=== PATIENT | female | born 1990 | race Hispanic/Latino ===

== ENCOUNTER → 2019-10-05 | Day surgery (SDC) | payer OTHER ==
[~2019-10-05] MED LIST: HYOSCYAMINE 0.125 MG TAB ONE; PRENATAL 19 TA1 EACH PO; PROPOFOL IV EMULSION 10 MG/ML 20 ML VIAL ONE; ZANTAC PO
[2019-10-05 12:25] VITALS: BP 130/76
--- NOTE | 2019-10-05 17:30 | Operative Report ---
DATE OF PROCEDURE: 10/05/2019 SURGEON: Vince Pulido MD PROCEDURES: EGD with polypectomy and biopsies and colonoscopy with biopsies. INDICATIONS FOR EGD: Upper abdominal pain, acid reflux. INDICATIONS FOR COLONOSCOPY: Surveillance colonoscopy. Mother with colon cancer before age 40 ? Enamorado syndrome. MEDICATIONS: The patient was done under MAC, please see anesthesiologist's note. PROCEDURE IN DETAIL: With the patient in left lateral decubitus position, a flexible fiberoptic Olympus gastroscope was introduced into the esophagus under direct visualization without any difficulty. There was some patchy erythema noted in distal esophagus. The scope was then advanced with ease into the stomach. The patient is status post gastric sleeve. Mucosa overlying the antrum and the body revealed some diffuse erythema and moderate edema, and biopsies were obtained, and sent to stain for H. pylori. A minute polyp was noted in the antrum, that was partially excised with cold biopsy forceps. The pylorus was of normal contour and shape, it was intubated with ease and the scope was advanced all the way to the second portion of the duodenum. Biopsies were obtained from the proximal second portion and duodenal bulb to rule out sprue. The scope was then withdrawn back into the stomach and retroflexed, mucosa overlying the fundus and cardia appeared to be within normal limits. The scope was then straightened out, it was subsequently withdrawn. The patient tolerated the procedure well. IMPRESSION: 1. Distal esophagitis, mild. 2. Status post gastric sleeve. 3. Gastritis, biopsied, biopsies sent to stain for H. pylori. 4. Gastric polyp, antrum, partially excised with the cold biopsy forceps. 5. Rule out sprue. PLAN: 1. Follow up histology. 2. Initiate Protonix 40 mg one p.o. q.a.m. a.c. DESCRIPTION OF PROCEDURE: The patient was then turned around after adequate lubrication of the anal canal, a flexible fiberoptic Olympus colonoscope was advanced with some difficulty all the way to the cecum. A large amount of retained stool was noted in the left colon. The cecum and the ascending colon visualization were fair, and appeared to be overall within normal limits. No obvious obstructing or constricting lesions were noted in the left colon. The rectum grossly appeared to be within normal limits. The scope was then retroflexed into the distal rectum and approximately 4 mm sessile lesion was noted at the dentate line, that was biopsied. Also, some internal hemorrhoids were noted. The scope was then straightened out, it was subsequently withdrawn. The patient tolerated the procedure well. IMPRESSION: 1. Suboptimal to poor prep, left colon. 2. Approximately 4 mm sessile lesion, dentate line, biopsied. 3. Internal hemorrhoids, none actively bleeding. PLAN: 1. Followup histology. 2. The patient will need a repeat colonoscopy after a better prep. Then, genetic testing for Enamorado syndrome. Vince Pulido MD [facility] /[id number] cc: Earl Shannon MD
== END | disposition home or self-care (01) ==
LOC: OR 08:50
PROVIDERS: ATTEND Internal Medicine Gastroenterology
DX: K29.50 Unspecified chronic gastritis without bleeding (principal); K31.7 Polyp of stomach and duodenum; K21.0 Gastro-esophageal reflux disease with esophagitis; K64.8 Other hemorrhoids; K62.9 Disease of anus and rectum, unspecified; K59.00 Constipation, unspecified; F17.210 Nicotine dependence, cigarettes, uncomplicated; Z01.812 Encounter for preprocedural laboratory examination; Z11.59 Encounter for screening for other viral diseases; Z98.84 Bariatric surgery status; Z68.29 Body mass index [BMI] 29.0-29.9, adult; Z80.0 Family history of malignant neoplasm of digestive organs
CPT/HCPCS: 43239; 45380; 81025; 87635; J2704

== ENCOUNTER 2019-12-08 00:31 | Emergency (ER) | payer OTHER ==
[~2019-12-08] VITALS: Ht 162.6 cm; Wt 78.0 kg
[~2019-12-08 00:31] MED LIST changes: -HYOSCYAMINE 0.125 MG TAB ONE; -PROPOFOL IV EMULSION 10 MG/ML 20 ML VIAL ONE
[2019-12-08] MEDS ORDERED: TRUVADA/ISENTRES 1 TAB TAB PO ONE (01:00)
--- NOTE | 2019-12-08 01:11 | Emergency Department Note ---
History of Present Illnes History of Present Illness Chief Complaint: General Medicine Complaints History of Present Illness This is a 29 year old female PRESENTS TO ED WITH PUNCTURE WOUND TO LEFT PALM CAUSED BY NEEDLE IN PTS ROOM WHEN PT WAS CLEANING THE ROOM; PT HAD LABS DRAWN PER PROTOCOL; PEP MEDDICATION INITIATED PER MD ORDERS. Historian: Patient Arrival Mode: Car Onset (how long ago): hour(s) (1) Location: LEFT HAND Quality: NEEDLE STICK Radiation: Reports non-radiation Severity: mild Onset quality: sudden Duration (how long): hour(s) (1) Timing of current episode: constant Progression: unchanged Chronicity: new Context: Reports trauma/injury ( ABOVE) Relieving factors: none Exacerbating factors: none Associated symptoms: Reports denies other symptoms Past Medical/Family History Physician Review I have reviewed the patient's past medical and family history. Any updates have been documented here. Past Medical History Recent Fever: No Clinical Suspicion of Infectio: No New/Unexplained Change in Ment: No Past Medical History: None Past Surgical History: Cholecysctectomy Other Surgery: GASTRIC SLEEVE Social History Smoking Cessation: Current every day smoker Counseling Performed: Yes Alcohol Use: None Any Illegal Drug Use: No Physically hurt or threatened: No Family History Family history of heart diseas: No Other Any Pre-Existing Lines (PICC,: No Review of Systems Review of Systems Constitutional: Reports no symptoms EENTM: Reports no symptoms Cardiovascular: Reports no symptoms Respiratory: Reports no symptoms Gastrointestinal: Reports no symptoms Genitourinary: Reports no symptoms Musculoskeletal: Reports no symptoms Integumentary: Reports as per HPI Neurological: Reports no symptoms Psychological: Reports no symptoms Endocrine: Reports no symptoms Hematological/Lymphatic: Reports no symptoms Physical Exam Related Data Allergies: Coded Allergies: No Known Allergies (Unverified , 10/02/19) Triage Vital Signs Vital Signs Date Time Temp Pulse Resp B/P (MAP) Pulse Ox O2 Delivery O2 Flow Rate FiO2 12/08/19 00:50 97.6 88 19 121/84 100 Room Air Vital signs reviewed: Yes Physical Exam CONSTITUTIONAL Constitutional: Present well-developed, Present well-nourished; Absent distressed HENT HENT: Present normocephalic, Present atraumatic, Present oropharynx clear/moist, Present nose normal HENT L/R: Present left ext ear normal, Present right ext ear normal EYES Eyes: Reports PERRL, Reports conjunctivae normal NECK Neck: Present ROM normal PULMONARY Pulmonary: Present effort normal, Present breath sounds normal CARDIOVASCULAR Cardiovascular: Present regular rhythm, Present heart sounds normal, Present capillary refill normal, Present normal rate GASTROINTESTINAL Abdominal: Present soft, Present nontender, Present bowel sounds normal GENITOURINARY Genitourinary: Present exam deferred SKIN Skin: Present warm, Present dry, Present other (NEEDLE STICK LEFT PALM) MUSCULOSKELETAL Musculoskeletal: Present ROM normal NEUROLOGICAL Neurological: Present alert, Present oriented x 3, Present no gross motor or sensory deficits PSYCHOLOGICAL Psychological: Present mood/affect normal, Present judgement normal Assessment & Plan Medical Decision Making MDM PT WITH NEEDLE STICK REQUESTING HIV PROPHYLAXIS COMBIVIR 1 PO ORDERED PT TO FOLLOW UP WITH EMPLOYEE [facility] Assessment & Plan Final Impression: (1) Needle stick injury Depart Disposition: HOME, SELF-CARE Last Vital Signs Date Time Temp Pulse Resp B/P (MAP) Pulse Ox O2 Delivery O2 Flow Rate FiO2 12/08/19 00:50 97.6 88 19 121/84 100 Room Air Home Meds Reported Medications Vit/Fe Fum/James/Fa ( 19 TABLET) 1 Each Tablet, PO DAILY 10/02/19 [Zantac] No Conflict Check, PO PRN 10/02/19 Medications in the ED Lamivudine/ Zidovudine 1 tab ONCE ONCE PO Last administered on 12/08/19at 01:03; Admin Dose 1 TAB; Start 12/08/19 at 01:00; Stop 12/08/19 at 01:01 RIO REEVES MD Dec 08, 2019 01:10
--- OUTSIDE RECORDS SUMMARY | 2019-12-08 02:31 | XMS REPORT | Clinical Summary ---
Author Author [facility] Address Unknown Phone Unavailable Care Team Providers Care Flight Service Agent Name Role Phone Asked, No Pcp PCP Unavailable Allergies No Known Allergies Medications End Date Status Medication Sig Dispensed Refills Start Date Active multivitamin with Take 1 tablet 0 minerals tablet by mouth daily. 05/29/2019 Discontinued ciprofloxacin (CIPRO) 500 Take 1 tablet 8 tablet 0 MG tablet (500 mg 0 total) by mouth 2 (two) times a day for 4 days. 05/29/2019 Discontinued (Reorder) traMADol (ULTRAM) 50 mg Take 1 tablet 20 tablet 0 tabletIndications: acute (50 mg total) 0 pain by mouth every 6 (six) hours as needed for moderate pain for up to 5 days .acute pain. 05/29/2019 Discontinued (Reorder) acetaminophen (TYLENOL Take 1 tablet 30 tablet 0 0 EXTRA STRENGTH) 500 MG (500 mg 0 tablet total) by mouth every 6 (six) hours as needed for mild pain for up to 30 days. 05/29/2019 Discontinued (Reorder) traMADol (ULTRAM) 50 mg Take 1 tablet 20 tablet 0 tabletIndications: acute (50 mg total) 0 pain by mouth every 6 (six) hours as needed for moderate pain for up to 4 days .acute pain. 05/29/2019 Discontinued ciprofloxacin (CIPRO) 500 Take 1 tablet 6 tablet 0 MG tablet (500 mg 0 total) by mouth 2 (two) times a day for 3 days. 06/03/2019 traMADol (ULTRAM) 50 mg Take 1 tablet 20 tablet 0 tabletIndications: acute (50 mg total) 0 pain by mouth every 6 (six) hours as needed for moderate pain for up to 5 days .acute pain. 06/02/2019 ciprofloxacin (CIPRO) 500 Take 1 tablet 8 tablet 0 MG tablet (500 mg 0 total) by mouth 2 (two) times a day for 4 days. 06/27/2019 acetaminophen (TYLENOL Take 1 tablet 30 tablet 0 0 EXTRA STRENGTH) 500 MG (500 mg 0 tablet total) by mouth every 6 (six) hours as needed for mild pain for up to 29 days. Active Problems Problem Noted Date Calculus of gallbladder with acute cholecystitis with out obstruction 05/26/2019 Encounters Care Team Description Date Type Specialty Kadi Rivera NP Calculus of gallbladder with acute brandi cystitis without obstruction (Primary Dx) 06/13/2019 Office Visit General Surgery Kadi Rivera NP Calculus of gallbladder with acute brandi cystitis without obstruction (Primary Dx) 06/06/2019 Office Visit General Surgery Kelly Esteves MD Wright, Young Joo, GETTER OPERATOR 05/27/2019 Anesthesia General Surgery Event Sarah Cantu MD CHOLECYSTECTOMY, LAPAROSCOPIC 05/27/2019 Surgery General Surgery Austin Luis MD Martinez, Sylvia, MD Calculus of gallbladder with acute brandi cystitis without obstruction (Primary Dx) 05/26/2019 Hospital General Surgery - Encounter 05/29/2019 after 12/07/2018 Social History Date Tobacco Use Types Packs/Day Years Used Current Every Day Smoker Cigarettes 0.25 Smokeless Tobacco: Never Used Comments: 3 cigarrettes/ day Drinks/Week oz/Week Comments Alcohol Use 1 Glasses of wine 1.0 every 3 or 4 weeks Yes Sex Assigned at Date Recorded Not on file Industry Job Start Date Occupation Not on file Not on file Not on file Travel End Travel History Travel Start No recent travel history available. Last Filed Vital Signs Reading Time Taken Comments Vital Sign 118/66 06/13/2019 2:03 PM NEWBORN HEARING SCREENER Blood Pressure 102 06/13/2019 2:03 PM NEWBORN HEARING SCREENER Pulse 37.2 C (99 F) 06/13/2019 2:03 PM NEWBORN HEARING SCREENER Temperature 18 05/29/2019 11:34 AM NEWBORN HEARING SCREENER Respiratory Rate 99% 06/13/2019 2:03 PM NEWBORN HEARING SCREENER Oxygen Saturation - - Inhaled Oxygen Concentration 78.9 kg (174 lb) 06/13/2019 2:03 PM NEWBORN HEARING SCREENER Weight 162.6 cm (5' 4") 06/13/2019 2:03 PM NEWBORN HEARING SCREENER Height 29.87 06/13/2019 2:03 PM NEWBORN HEARING SCREENER Body Mass Index Plan of Treatment Health Maintenance Due Date Last Done Comments CERVICAL CANCER SCREENING 2013 INFLUENZA VACCINE 12/01/2019 Procedures Comments Procedure Name Priority Date/Time Associated Diag nosis CBC HEMOGRAM Routine 05/29/2019 4:05 AM NEWBORN HEARING SCREENER ESTIMATED GFR Routine 05/29/2019 4:00 AM NEWBORN HEARING SCREENER PHOSPHORUS LEVEL Routine 05/29/2019 4:00 AM NEWBORN HEARING SCREENER MAGNESIUM LEVEL Routine 05/29/2019 4:00 AM NEWBORN HEARING SCREENER BASIC METABOLIC PANEL Routine 05/29/2019 4:00 AM NEWBORN HEARING SCREENER CBC HEMOGRAM STAT 05/28/2019 6:50 AM NEWBORN HEARING SCREENER ESTIMATED GFR STAT 05/28/2019 6:40 AM NEWBORN HEARING SCREENER BASIC METABOLIC PANEL STAT 05/28/2019 6:40 AM NEWBORN HEARING SCREENER SC AN ELECTIVE Routine 05/27/2019 ENDOTRACHEAL AIRWAY 9:27 AM NEWBORN HEARING SCREENER CHOLECYSTECTOMY, 05/27/2019 CHOLELITHIASIS LAPAROSCOPIC 9:01 AM NEWBORN HEARING SCREENER SURGICAL PATHOLOGY Routine 05/27/2019 REQUEST 8:30 AM NEWBORN HEARING SCREENER URINE CULTURE Routine 05/27/2019 3:14 AM NEWBORN HEARING SCREENER HCG QUALITATIVE, URINE Routine 05/26/2019 SCREEN 11:30 PM NEWBORN HEARING SCREENER URINALYSIS SCREEN AND Routine 05/26/2019 MICROSCOPY, WITH REFLEX 11:30 PM NEWBORN HEARING SCREENER TO CULTURE ECG 12-LEAD STAT 05/26/2019 7:55 PM NEWBORN HEARING SCREENER US GALLBLADDER STAT 05/26/2019 6:26 PM NEWBORN HEARING SCREENER ESTIMATED GFR STAT 05/26/2019 5:25 PM NEWBORN HEARING SCREENER PARTIAL THROMBOPLASTIN STAT 05/26/2019 TIME (PTT) 5:25 PM NEWBORN HEARING SCREENER PROTHROMBIN TIME WITH INR STAT 05/26/2019 5:25 PM NEWBORN HEARING SCREENER TYPE AND SCREEN Routine 05/26/2019 5:25 PM NEWBORN HEARING SCREENER LIPASE LEVEL STAT 05/26/2019 5:25 PM NEWBORN HEARING SCREENER HEPATIC FUNCTION PANEL STAT 05/26/2019 5:25 PM NEWBORN HEARING SCREENER BASIC METABOLIC PANEL STAT 05/26/2019 5:25 PM NEWBORN HEARING SCREENER HC COMPLETE BLD COUNT STAT 05/26/2019 W/AUTO DIFF 5:25 PM NEWBORN HEARING SCREENER after 12/07/2018 Results * CBC hemogram (05/29/2019 4:05 AM NEWBORN HEARING SCREENER) Only the most recent of 2 results within the time period is included. [facility] WBC 8.09 4.50 - 11.00 k/uL [facility] RBC 3.41 (L) 4.20 - 5.50 m/uL [facility] HGB 9.9 (L) 12.0 - 16.0 g/dL [facility] HCT 31.4 (L) 37.0 - 47.0 % [facility] MCV 92.1 82.0 - 100.0 fL [facility] MCH 29.0 27.0 - 34.0 pg [facility] MCHC 31.5 31.0 - 37.0 g/dL [facility] RDW - SD 48.3 37.0 - 55.0 fL [facility] MPV 11.5 8.8 - 13.2 fL [facility] Platelet count 287 150 - 400 k/uL [facility] Nucleated RBC 0.00 /100 WBC [facility] Specimen Blood Performing Organization Address City/State/Zipcode Ph one Number [facility] DEPARTMENT OF [address] [place] [address] PATHOLOGY AND GENOMIC MEDICINE [address] * Estimated GFR (05/29/2019 4:00 AM NEWBORN HEARING SCREENER) Only the most recent of 3 results within the time period is included. [facility] Estimated GFR >=90 mL/min/1.73 m2 [place] Comment: [facility] Interpretation G1 >=90 Normal or high G2 60-89 Mildly decreased G3a 45-59 Mildly to moderately decreased G3b 30-44 Moderately to severely decreased G4 15-29 Severely decreased G5 <15 Kidney failure The eGFR was calculated using the Chronic Kidney Disease Epidemiology Collaboration (CKD-EPI) equation. Interpretation is based on recommendations of the National Kidney Foundation-Kidney Disease Outcomes Quality Initiative (NKF-KDOQI) published in 2014. Specimen Plasma specimen Performing Organization Address City/[facility] Ph one Number [facility] DEPARTMENT OF [address] [place] [address] PATHOLOGY AND GENOMIC MEDICINE [address] * Phosphorus level (05/29/2019 4:00 AM NEWBORN HEARING SCREENER) Phosphorus 4.0 2.4 - 4.5 mg/dL [facility] Specimen Plasma specimen Performing Organization Address [facility] one Number [facility] [place] [address] PATHOLOGY AND [facility] [address] * Magnesium level (05/29/2019 4:00 AM NEWBORN HEARING SCREENER) Magnesium 2.0 1.6 - 2.6 mg/dL [facility] Specimen Plasma specimen Performing Organization Address [facility] one Number [facility] DEPARTMENT OF [address] [place] [address] PATHOLOGY AND [facility] [address] * Basic metabolic panel (05/29/2019 4:00 AM NEWBORN HEARING SCREENER) Only the most recent of 3 results within the time period is included. Sodium 141 135 - 148 mEq/L [facility] Potassium 4.0 3.5 - 5.0 mEq/L [facility] Chloride 106 98 - 112 mEq/L [facility] CO2 25 24 - 31 mEq/L [facility] Anion gap 10@ANIO 7 - 15 mEq/L [facility] BUN 5 (L) 6 - 20 mg/dL [facility] Creatinine 0.57 0.50 - 0.90 mg/dL [facility] Glucose 80 65 - 99 mg/dL [facility] Calcium 8.4 8.3 - 10.2 mg/dL [facility] Specimen Plasma specimen Performing Organization Address [facility] one Number [facility] DEPARTMENT OF [address] [place] [address] PATHOLOGY [place] [address] HOSPITAL * Airway (05/27/2019 9:27 AM NEWBORN HEARING SCREENER) Narrative Performed At Servando Rivera CRNA 05/27/2019 9:28 AM Airway Performed by: Servando Rivera CRNA Authorized by: Kelly Esteves MD Location: OR Urgency: Elective Difficult Airway: No Anesthesiologist: Kelly Esteves MD Resident/GETTER OPERATOR/AA: Servando Rivera CRNA Performed by: resident/GETTER OPERATOR/AA Preoxygenated with 100% O2: Yes C-spine Precautions Maintained Througho ut: Yes Mask Ventilation: Easy mask Final Airway Type: Endotracheal airwa y Final Endotracheal Airway: ETT Cuffed: Yes Technique Used: Direct laryngoscopy Devices/Methods Used in Placement: In tubating stylet Insertion Site: Oral Blade Type: Berkowitz Laryngoscope Blade/Videolaryngoscope Bl juan Size: 2 ETT Size (mm): 7.0 Cuff at minimum occlusion pressure: Yes Measured from: Teeth ETT to Teeth (cm): 21 Placement Verified by: CO2 detection, d irect visualization and equal breath sounds Laryngoscopic view: Grade I - full vi ew of glottis Rapid Sequence Induction (RSI): No Modified RSI: No Number of Attempts at Approach: 1 * Surgical pathology request (05/27/2019 8:30 AM NEWBORN HEARING SCREENER) [facility] DEPARTMENT OF PATHOLOGY AND GENOMIC MEDICINE Surgical See link below for PDF Lab [facility] DEPART [facility] pathology Report OF PATHOLOGY report AND GENOMIC MEDICINE Result status This is Final Report for [facility] DEPARTME NT [id number] OF PATHOLOGY AND GENOMIC MEDICINE Specimen Performing Organization Address City/State/Zipcode Ph one Number [facility] DEPARTMENT OF [address] [place] [address] PATHOLOGY AND GENOMIC MEDICINE * Urine culture (05/27/2019 3:14 AM NEWBORN HEARING SCREENER) Urine culture Escherichia coli JUAN LUIS isolate >10-5 cfu/ml EVANGELICAL [facility] characteristics of this assay on this isolate were validated by the Microbiology Laboratory at [facility]. This source has not been approved by the U.S. Food and Drug Administration. The results are not intended to be used as the sole means for clinical diagnosis or patient management. The Microbiology Laboratory is authorized under the clinical Laboratory Improvement Amendments of 1988 (CLIA-88) to perform high complexity testing. (A) Comment: Specimen Information Specimen Source: Urine Specimen Site: Random void Specimen Urine - Random void Antibiotic Method Susceptibility Organism Ampicillin MURPHY <=2 mcg/mL: Susceptible Escherichia coli Amoxicillin/Clavulanate MURPHY 4/2 mcg/mL: Susceptible Escherichia coli Amikacin MURPHY <=4 mcg/mL: Susceptible Escherichia coli Aztreonam MURPHY <=1 mcg/mL: Susceptible Escherichia coli Ceftazidime MURPHY <=0.5 mcg/mL: Susceptible Escherichia coli Ciprofloxacin MURPHY <=0.5 mcg/mL: Susceptible Escherichia coli Ceftriaxone MURPHY <=0.5 mcg/mL: Susceptible Escherichia coli Cefuroxime Sodium MURPHY <=4 mcg/mL: Susceptible Escherichia coli Cefazolin MURPHY 2 mcg/mL: Susceptible Escherichia coli Cefepime MURPHY <=0.5 mcg/mL: Susceptible Escherichia coli Nitrofurantoin MURPHY 32 mcg/mL: Susceptible Escherichia coli Cefoxitin MURPHY <=4 mcg/mL: Susceptible Escherichia coli Gentamicin MURPHY 2 mcg/mL: Susceptible Escherichia coli Imipenem MURPHY 0.5 mcg/mL: Susceptible Escherichia coli Levofloxacin MURPHY <=1 mcg/mL: Susceptible Escherichia coli Meropenem MURPHY <=0.125 mcg/mL: Susceptible Escherichia coli Tobramycin MURPHY 2 mcg/mL: Susceptible Escherichia coli Ampicillin/Sulbactam MURPHY 4/2 mcg/mL: Susceptible Escherichia coli Trimethoprim/Sulfamethoxazole MURPHY <=0.5/9.5 mcg/mL: Susceptible Escherichia coli Tetracycline MURPHY <=1 mcg/mL: Susceptible Escherichia coli Piperacillin/Tazobactam MURPHY <=2/4 mcg/mL: Susceptible Escherichia coli Ertapenem MURPHY <=0.125 mcg/mL: Susceptible Escherichia coli Tigecycline MURPHY <=0.5 mcg/mL: Susceptible Escherichia coli Performing Organization Address City/State/Zipcode Ph one Number [facility] DEPARTMENT OF [address] [place] [address] PATHOLOGY AND GENOMIC MEDICINE [address] * Urinalysis screen and microscopy, with reflex to culture (05/26/2019 11:30 PM NEWBORN HEARING SCREENER) Specimen site Random void [facility] Color, UA Dark Yellow [facility] Appearance, UA Cloudy [facility] Specific 1.017 1.001 - 1.035 [place] gravity, UA [facility] pH, UA 5.0 5.0 - 8.5 [facility] Protein, UA Negative Negative [facility] Glucose, UA Negative Negative [facility] Ketones, UA 1+ (A) Negative [facility] Bilirubin, UA Negative Negative [facility] Blood, UA Moderate (A) Negative [facility] Nitrite, UA Negative Negative [facility] Urobilinogen, 4.0 (A) <2.0 [facility] Leukocyte Negative Negative [place] esterase, [facility] Epithelial 2 /HPF [place] cells, [facility] WBC, UA <1 0 - 4 /HPF [facility] RBC, UA <1 0 - 5 /HPF [facility] Bacteria, UA Many (A) None seen [facility] Yeast, UA Few (A) [facility] Yeast with None seen [place] [facility] Amorphous Few [place] crystals [facility] Specimen Urine Performing Organization Address City/[facility] Ph one Number [facility] DEPARTMENT OF [address] [place] [address] PATHOLOGY AND GENOMIC MEDICINE [address] * hCG qualitative, urine screen (05/26/2019 11:30 PM NEWBORN HEARING SCREENER) [facility] hCG NegativeComment: Sensitivity [place] qualitative, of HCG test: 25 mIU/mL [facility] Specimen Urine Performing Organization Address City/[facility] Ph one Number [facility] DEPARTMENT OF [address] [place] [address] PATHOLOGY AND GENOMIC MEDICINE [address] * ECG 12 lead (05/26/2019 7:55 PM NEWBORN HEARING SCREENER) Ventricular 69 [facility] rate Atrial rate 69 [facility] SC interval 150 [facility] QRSD interval 84 [facility] QT interval 412 [facility] QTC interval 441 [facility] P axis 1 56 [facility] QRS axis 1 71 [facility] T wave axis 53 [facility] EKG impression Normal sinus rhythm with sinus HM MU SE arrhythmia-Normal ECG-No previous ECGs available- Specimen Narrative Performed At This result has an attachment that is n ot available. Performing Organization Address [facility] Ph one Number [facility] MUSE [address] [place] [address] * US Gallbladder (05/26/2019 6:26 PM NEWBORN HEARING SCREENER) Specimen Narrative Performed At EXAMINATION: [facility]:Cholelithiasis COMPARISON: None. IMPRESSION: 1. Gallbladder: There are gallstones. T he gallbladder is mildly distended. Wall thickening is noted. Findings can be se en with acute cholecystitis. 2. Gallbladder Wall: Normal 3. Pericholecystic Fluid: No pericholec ystic fluid. 4. CBD: The common bile duct is within normal limits.. The duct measures 5-6 mm. 5. Other Findings: None [facility]-[id number] Procedure Note Interface, Radiology Results Incoming - 05/26/2019 6:44 PM NEWBORN HEARING SCREENER EXAMINATION: US GALLBLADDER CLINICAL HISTORY:Cholelithiasis COMPARISON: None. IMPRESSION: 1. Gallbladder: There are gallstones. Th e gallbladder is mildly distended. Wall thickening is noted. Findings can be seen with acute cholecystitis. 2. Gallbladder Wall: Normal 3. Pericholecystic Fluid: No pericholecy stic fluid. 4. CBD: The common bile duct is within n ormal limits.. The duct measures 5-6 mm. 5. Other Findings: None [facility]-[id number] Performing Organization Address [facility] one Number [facility] [address] [place] [address] * Partial thromboplastin time, activated (05/26/2019 5:25 PM NEWBORN HEARING SCREENER) PTT 28.2 23.0 - 36.0 sec [place] Comment: EVANGELICAL PTT therapeutic range for HOSPITAL unfractionated heparin is 61.0-112.0 seconds which corresponds to Anti-Xa 0.3-0.7 U/ml. Specimen Blood Performing Organization Address [facility] Ph one Number [facility] DEPARTMENT OF [address] [place] [address] PATHOLOGY AND GENOMIC MEDICINE [address] [address] [facility] * Prothrombin time with INR (05/26/2019 5:25 PM NEWBORN HEARING SCREENER) Prothrombin 14.1 11.5 - 14.5 sec [place] time [facility] INR 1.1 [place] Comment: EVANGELICAL The International Normalized HOSPITAL Ratio (INR) is a therapeutic monitoring tool for patients who are stable on oral anticoagulant therapy. An INR of 2.0-3.0 is suggested for deep vein thrombosis/pulmonary embolism. Specimen Blood Performing Organization Address City/State/Zipcode Ph one Number [facility] DEPARTMENT OF [address] [place] [address] PATHOLOGY AND GENOMIC MEDICINE [address] * CBC with platelet and differential (05/26/2019 5:25 PM NEWBORN HEARING SCREENER) [facility] WBC 10.98 4.50 - 11.00 k/uL [facility] RBC 4.04 (L) 4.20 - 5.50 m/uL [facility] HGB 11.6 (L) 12.0 - 16.0 g/dL [facility] HCT 37.2 37.0 - 47.0 % [facility] MCV 92.1 82.0 - 100.0 fL [facility] MCH 28.7 27.0 - 34.0 pg [facility] MCHC 31.2 31.0 - 37.0 g/dL [facility] RDW - SD 45.9 37.0 - 55.0 fL [facility] MPV 11.2 8.8 - 13.2 fL [facility] Platelet count 367 150 - 400 k/uL [facility] Nucleated RBC 0.00 /100 WBC [facility] Neutrophils 58.7 39.0 - 69.0 % [facility] Lymphocytes 32.7 25.0 - 45.0 % [facility] Monocytes 5.9 0.0 - 10.0 % [facility] Eosinophils 1.7 0.0 - 5.0 % [facility] Basophils 0.5 0.0 - 1.0 % [facility] Immature 0.5Comment: "Immature 0.0 - 1.0 % [place] granulocytes granulocytes" (promyelocytes, METHOD IST myelocytes, metamyelocytes) [facility] Specimen Blood Performing Organization Address City/[facility] Ph one Number [facility] DEPARTMENT OF [address] [place] [address] PATHOLOGY AND GENOMIC MEDICINE [address] * Type and screen (05/26/2019 5:25 PM NEWBORN HEARING SCREENER) ABO grouping O [facility] Rh type POS [facility] Antibody screen NEG [place] (gel) [facility] Specimen Blood Performing Organization Address City/[facility] Ph one Number [facility] DEPARTMENT OF [address] [place] [address] PATHOLOGY AND GENOMIC MEDICINE [address] * Lipase level (05/26/2019 5:25 PM NEWBORN HEARING SCREENER) Lipase 26 13 - 60 U/L [facility] Specimen Plasma specimen Performing Organization Address City/[facility] Ph one Number [facility] DEPARTMENT OF [address] [place] [address] PATHOLOGY AND GENOMIC MEDICINE [address] * Hepatic function panel (05/26/2019 5:25 PM NEWBORN HEARING SCREENER) Pathologist [facility] Albumin 4.2 3.5 - 5.0 g/dL [facility] Total bilirubin 0.3 0.0 - 1.2 mg/dL [facility] Bilirubin <0.2 0.0 - 0.3 mg/dL [facility] Alkaline 112 (H) 35 - 104 U/L [place] phosphatase [facility] Protein 7.8 6.3 - 8.3 g/dL [place] Comment: EVANGELICAL [id number] g/dL [facility] 1 [id number] g/dL 7 months-0ueur202.1-7.3 g/dL 1-2 .6-7.5 g/dL >3 syufu320.0-8.0 g/dL [id number] g/dL ALT 24 5 - 50 U/L [facility] AST 53 (H) 10 - 35 U/L [facility] Specimen Plasma specimen Performing Organization Address [facility] Ph one Number [facility] DEPARTMENT OF [address] [place] [address] PATHOLOGY AND GENOMIC MEDICINE [address] after 12/07/2018 Insurance Type Payer Benefit Subscriber ID Effective Phone Address Plan / Dates Group O JOHN LOPEZ OPEN xxxxxxxxxxx 2019-P ACCESS/NET resent WORK Advance Directives For more information, please contact: [phone] Patient Sleep Technologist Explanation Type Date Recorded Advance Directives, Living Will and Medical Power of Business Intelligence Reporting Analyst Advance Directives, Living Will and Medical Power of Business Intelligence Reporting Analyst
--- OUTSIDE RECORDS SUMMARY | 2019-12-08 02:31 | XMS REPORT | Clinical Summary ---
Author Author [facility] Organization [facility] Address Unknown Phone Unavailable Care Team Providers Care Dry Cleaning Attendant Name Role Phone Unknownmeds, Provider PCP Unavailable Allergies No Known Allergies Medications End Date Status Medication Sig Dispensed Refills Start Date Active multivitamin capsule Take 1 0 capsule by mouth daily. 05/17/2020 Active esomeprazole (NEXIUM) 40 Take 1 30 capsule 0 0 MG capsule capsule (40 0 mg total) by mouth daily. 12/28/2018 aluminum-magnesium Take 10 mLs 355 mL 0 01 hydroxide 200-200 mg/5 mL by mouth as 9 suspension needed for Indigestion for up to 10 days. 05/18/2019 Discontinued ondansetron (ZOFRAN) 4 MG Take 1 tablet 10 tablet 0 tablet (4 mg total) 9 by mouth 3 (three) times daily as needed for Nausea for up to 10 doses. 05/28/2019 acetaminophen-codeine Take 1-2 15 tablet 0 05/02 (TYLENOL #3) 300-30 mg tablets by 0 per tablet mouth every 6 (six) hours as needed for Pain for up to 10 days. Max Daily Amount: 8 tablets 05/25/2019 ondansetron (ZOFRAN) 4 MG Take 1 tablet 12 tablet 0 tablet (4 mg total) 0 by mouth every 6 (six) hours for 7 days. Active Problems Not on file Encounters Care Team Description Date Type Specialty Exposure to SARS-associated coronavirus (Primary Dx) 11/07/2019 Clinical Urgent Care Support Fab Mane MD SOB (shortness of breath) (Primary Dx) 11/01/2019 Emergency Emergency Medicine 11/01/2019 Orders Only General Internal Me dicine 11/01/2019 Travel Exposure to SARS-associated coronavirus (Primary Dx) 10/25/2019 Clinical Urgent Care Support Michael Watts MD Biliary colic (Primary Dx) 05/18/2019 Emergency Emergency Medicine 05/18/2019 Travel Felix Daniels MD Acute abdominal pain (Primary Dx); Non-intractable vomiting with nausea, unspecified vomiting type; History of sleeve gastrectomy; Leukocytosis, unspecified type 12/18/2018 Emergency Emergency Medicine 12/18/2018 Travel after 12/07/2018 Family History Medical History Relation Name Comments Cancer Father Kidney disease Father Cancer Mother Relation Name Status Comments Father Mother Social History Date Tobacco Use Types Packs/Day Years Used Current Every Day Smoker Cigarettes Smokeless Tobacco: Never Used Tobacco Cessation: Ready to Quit: Yes; C ounseling Given: Yes Comments: 2-3 cigarettes Alcohol Use Drinks/Week oz/Week Comments No Alcohol Habits Answer Date Recorded How often do you have a drink containing alcohol? Never 12/18/2018 How many drinks containing alcohol do you have on No t asked a typical day when you are drinking? How often do you have six or more drinks on one Not asked occasion? Sex Assigned at Date Recorded Not on file Industry Job Start Date Occupation Not on file Not on file Not on file Travel End Travel History Travel Start No recent travel history available. Last Filed Vital Signs Time Taken Vital Sign Reading 11/01/2019 7:12 PM CDT Blood Pressure 122/63 11/01/2019 7:12 PM CDT Pulse 91 11/01/2019 7:12 PM CDT Temperature 37.2 C (98.9 F) 11/01/2019 7:12 PM CDT Respiratory Rate 22 11/01/2019 7:12 PM CDT Oxygen Saturation 98% - Inhaled Oxygen - Concentration 11/01/2019 7:12 PM CDT Weight 77.1 kg (170 lb) 11/01/2019 7:12 PM CDT Height 162.6 cm (5' 4") 11/01/2019 7:12 PM CDT Body Mass Index 29.18 Plan of Treatment Not on file Procedures Comments Procedure Name Priority Date/Time Associated Diag nosis SARS-COV2/RT-PCR (HS & Routine 11/07/2019 Expos ure to REF LABS) 2:03 PM CDT SARS-associated coronavirus ECG 12-LEAD Routine 11/01/2019 7:05 PM CDT SARS-COV2/RT-PCR (HS & Routine 10/25/2019 Expos ure to REF LABS) 3:47 PM CDT SARS-associated coronavirus US ABDOMEN LIMITED STAT 05/18/2019 8:01 PM CERTIFIED DETENTION DEPUTY CBC W/PLT COUNT & AUTO STAT 05/18/2019 DIFFERENTIAL 7:00 PM CERTIFIED DETENTION DEPUTY SCREEN, URINE STAT 05/18/2019 7:00 PM CERTIFIED DETENTION DEPUTY URINALYSIS W/ MICROSCOPIC Routine 05/18/2019 7:00 PM CERTIFIED DETENTION DEPUTY LIPASE STAT 05/18/2019 7:00 PM CERTIFIED DETENTION DEPUTY HEPATIC FUNCTION PANEL STAT 05/18/2019 7:00 PM CERTIFIED DETENTION DEPUTY BASIC METABOLIC PANEL (7) STAT 05/18/2019 7:00 PM CERTIFIED DETENTION DEPUTY CBC W/PLT COUNT & AUTO STAT 05/18/2019 DIFFERENTIAL 7:00 PM CERTIFIED DETENTION DEPUTY CT ABDOMEN/PELVIS WITH IV STAT 12/18/2018 CONTRAST 3:23 AM CDT URINALYSIS W/ MICROSCOPIC STAT 12/18/2018 2:19 AM CDT SCREEN, URINE STAT 12/18/2018 2:19 AM CDT CBC W/PLT COUNT & AUTO STAT 12/18/2018 DIFFERENTIAL 1:45 AM CDT BILIRUBIN, ADULT TOTAL STAT 12/18/2018 1:45 AM CDT LIPASE STAT 12/18/2018 1:45 AM CDT AST (SGOT) STAT 12/18/2018 1:45 AM CDT ALT (SGPT) STAT 12/18/2018 1:45 AM CDT CBC W/PLT COUNT & AUTO STAT 12/18/2018 DIFFERENTIAL 1:45 AM CDT BASIC METABOLIC PANEL (7) STAT 12/18/2018 1:45 AM CDT after 12/07/2018 Results * SARS-CoV2/RT-PCR ([facility]) (11/07/2019 2:03 PM CDT) Only the most recent of 2 results within the time period is included. SARS-COV2/RT-PCR Negative Not Detected, Negative [facility] NON-INTERFACED REFERENCE LABS SARS-COV-2 PERFORMING LAB CPL [facility] NON-INT ERFACED REFERENCE LABS Specimen Other Performing Organization Address [facility] Ph one Number [facility] NON-INTERFACED REFERENCE LABS * ECG 12 lead (11/01/2019 7:05 PM CDT) Specimen Narrative Performed At Ventricular Rate 86 BPM GE MUSE Atrial Rate 86 BPM P-R Interval 134 ms QRS Duration 78 ms Q-T Interval 354 ms QTC Calculation(Bazett) 423 ms P [place] 40 degrees R [place] 66 degrees T [place] 47 degrees Normal sinus rhythm Normal ECG No previous ECGs available Confirmed by MD FAIRBANKS YOCHAI ([id number] ) on 11/04/2019 6:21:10 PM Procedure Note Interface, External Ris In - 11/04/2019 6:21 PM CDT Ventricular Rate 86 BPM Atrial Rate 86 BPM P-R Interval 134 ms QRS Duration 78 ms Q-T Interval 354 ms QTC Calculation(Bazett) 423 ms P [place] 40 degrees R [place] 66 degrees T [place] 47 degrees Normal sinus rhythm Normal ECG No previous ECGs available Confirmed by MD FAIRBANKS YOCHAI ([id number]) on 11/04/2019 6:21:10 PM Performing Organization Address [facility] Ph one Number GE MUSE * US abdomen limited (05/18/2019 8:01 PM CERTIFIED DETENTION DEPUTY) Specimen Narrative Performed At FINAL REPORT [employer] Right upper quadrant abdominal ultrasou nd, 05/18/2019. History: Right upper quadrant pain. Comparison: None available. Discussion: Transverse and longitudinal images of the right upper quadrant of the abdomen were obtained d emonstrating a liver of normal size and echogenicity measuring 15.0 cm in length.There is no evidence of a focal hepatic mass. The p ortal vein is patent with hepatopetal flow and is within normal l imits measuring 8 mm in diameter. The biliary tree is within normal limits with the common bile duct measuring 3 mm in diameter. The ga llbladder contains echogenic gallstones. There is no gallbladder wal l thickening or pericholecystic fluid. The sonographic Jett's sign was negative. The right kidney is normal in size and echogenicity without evidence of hydronephrosis, stones, or mass and measures 11.2 cm in length. The pancreatic body and proxima l tail are visualized and are normal in appearance. The abdominal aor ta is within normal limits. There is no evidence of free fluid. IMPRESSION: Cholelithiasis without ultrasonographic evidence of acute cholecystitis. Signed: Jcarlos Jefferson MD Report Verified Date/Time: 0 21:05:42 Reading Location: [facility] [id number] Consult Reading Room Procedure Note Interface, External Ris In - 05/18/2019 9:07 PM CERTIFIED DETENTION DEPUTY FINAL REPORT Right upper quadrant abdominal ultrasound, 05/18/2019. History: Right upper quadrant pain. Comparison: None available. Discussion: Transverse and longitudinal images of the right upper quadrant of the abdomen were obtained demonstrating a liver of normal size and echogenicity measuring 15.0 cm in length. There is no evidence of a focal hepatic mass. The portal vein is patent with hepatopetal flow and is within normal limits measuring 8 mm in diameter. The biliary tree is within normal limits with the common bile duct measuring 3 mm in diameter. The gallbladder contains echogenic gallstones. There is no gallbladder wall thickening or pericholecystic fluid. The sonographic Jett's sign was negative. The right kidney is normal in size and echogenicity without evidence of hydronephrosis, stones, or mass and measures 11.2 cm in length. The pancreatic body and proximal tail are visualized and are normal in appearance. The abdominal aorta is within normal limits. There is no evidence of free fluid. IMPRESSION: Cholelithiasis without ultrasonographic evidence of acute cholecystitis. Signed: Jcarlos Jefferson MD Report Verified Date/Time: 05/18/2019 21:05:42 Reading Location: [facility] C0[facility] Consult Reading Room Performing Organization Address City/State/Zipcode Ph one Number GE RIS * CBC with platelet count + automated diff (05/18/2019 7:00 PM CERTIFIED DETENTION DEPUTY) Only the most recent of 2 results within the time period is included. WBC 8.9 3.5 - 10.5 K/L [facility] RBC 3.87 (L) 3.93 - 5.22 M/L [facility] Hemoglobin 11.3 11.2 - 15.7 GM/DL [facility] Hematocrit 34.8 34.1 - 44.9 % [facility] [place] MCV 89.9 79.4 - 94.8 fL [facility] MCH 29.2 25.6 - 32.2 pg [facility] MCHC 32.5 32.2 - 35.5 GM/DL [facility] RDW 13.5 11.7 - 14.4 % [facility] Platelets 317 150 - 450 K/CU MM [facility] MPV 10.4 9.0 - 12.3 fL [facility] % Neutros 61 % [facility] % Lymph[facility] 29 % [facility] % Monos 7 % [facility] % Eos 2 % [facility] % Baso 1 % [facility] # Neutros 5.45 1.56 - 6.13 K/L [facility] # Lymphs 2.60 1.18 - 3.74 K/L [facility] # Monos 0.60 (H) 0.24 - 0.36 K/L [facility] # Eos 0.16 0.04 - 0.36 K/L [facility] # Baso 0.05 0.01 - 0.08 K/L [facility] Immature 0 0 - 1 % [facility] Granulocytes-Relative - [place] Specimen Blood Performing Organization Address [facility] Ph one Number [address] [address] [place] * screen, urine (05/18/2019 7:00 PM CERTIFIED DETENTION DEPUTY) Only the most recent of 2 results within the time period is included. Preg Test, Ur Negative [facility] Specimen Urine Performing Organization Address [facility] Ph one Number [address] [address] [place] * Urinalysis w/Microscopic (05/18/2019 7:00 PM CERTIFIED DETENTION DEPUTY) Only the most recent of 2 results within the time period is included. Color, UA Yellow [facility] Clarity, UA Clear [facility] Specific Corea, UA 1.025 1.005 - 1.030 [facility] [place] pH, UA 5.5 5.0 - 9.0 [facility] Protein, UA Negative Negative [facility] Glucose, UA Negative Negative [facility] Ketones, UA 15 mg/dL (A) Negative [facility] Bilirubin, UA Negative Negative [facility] Blood, UA Negative Negative [facility] Nitrite, UA Negative Negative [facility] Leukocytes, UA Negative Negative [facility] Urobilinogen, UA 0.2 0.2 - 1.0 mg/dL [facility] RBC, UA 0 /HPF [facility] WBC, UA 0 /HPF [facility] Specimen Source [facility] Specimen Urine Performing Organization Address [facility] Ph one Number [address] [phone] [place] * Lipase (05/18/2019 7:00 PM CERTIFIED DETENTION DEPUTY) Only the most recent of 2 results within the time period is included. Lipase 26 8 - 78 U/L [facility] Specimen Blood Narrative Performed At Trust Mail Clerk [facility] Performing Organization Address [facility] Ph one Number [address] [phone] [place] [address] * Liver Panel (05/18/2019 7:00 PM CERTIFIED DETENTION DEPUTY) Protein, Total 7.1 6.0 - 8.3 gm/dL [facility] Albumin 4.1 3.5 - 5.0 g/dL [facility] Total Bilirubin 0.2 0.2 - 1.2 mg/dL [facility] Bilirubin, Direct 0.1 0.1 - 0.5 mg/dL [facility] Alkaline Phosphatase 101 40 - 150 U/L [facility] AST 11 5 - 34 U/L [facility] ALT 9 6 - 55 U/L [facility] Specimen Blood Narrative Performed At Trust Mail Clerk [facility] Performing Organization Address [facility] one Number [address] [address] 0 [phone] [address] * Basic metabolic panel (Na, K+, Cl, CO2, Glu, Ca, BUN, Cr) (05/18/2019 7:00 PM CERTIFIED DETENTION DEPUTY) Only the most recent of 2 results within the time period is included. Sodium 137 136 - 145 meq/L [facility] Potassium 4.0 3.5 - 5.1 meq/L [facility] Chloride 106 98 - 107 meq/L [facility] CO2 25 22 - 29 meq/L [facility] BUN 11 7 - 21 mg/dL [facility] Creatinine 0.63 0.57 - 1.25 mg/dL [facility] Glucose 82 70 - 105 mg/dL [facility] Calcium 8.3 (L) 8.4 - 10.2 mg/dL [facility] EGFR Comment: INSUFFICIENT [facility] DATA TO CALCULATE ESTIMATED [facility] GFR. Specimen Blood Narrative Performed At Trust Mail Clerk ID - [place] [facility] Performing Organization Address City/State/Zipcode Ph one Number [facility] [address] [place], [place] [address] * CT abdomen/pelvis with IV contrast (12/18/2018 3:23 AM CDT) Specimen Narrative Performed At FINAL REPORT [employer] CLINICAL HISTORY: Acute abdominal pain. FINDINGS: Multiple axial images of the abdomen an d pelvis were performed after the uncomplicated administration of IV contrast. Oral contrast was not given. This exam was performed according to [facility] departmental dose-optimization program, which includ es automated exposure control, adjustment of the mA and/or kV accordin g to patient size and/or use of the iterative reconstruction techniq ue. Comparison:None. Lower chest: Clear lungs. No pleural ef fusion or pneumothorax. Visualized cardiac contours normal. Liver: No significant findings. Gallbladder and biliary tree: No signif icant findings. Spleen: No significant findings. Adrenal Glands: No significant findings . Kidneys and ureters: No significant fin dings. Stomach and Duodenum: Postsurgical russ ges in the stomach. Pancreas: No significant findings. Bowel: No significant findings. Appendix: Normal. Bladder: Decompressed Major vascular structures: No significa nt findings. Reproductive organs: 2.5 x 2.4 cm right ovarian cyst. Other: Trace free fluid in the dependen t pelvis, nonspecific but probably physiologic. No free air or ad enopathy. Skeleton: No acute bony abnormality. IMPRESSION: 2.5 cm right ovarian cyst, almost certa inly benign. No imaging follow-up for this finding is recommend ed. Trace free fluid in the dependent pelvi s, nonspecific but possibly physiologic. Signed: Rishi Hollis MD Report Verified Date/Time: 03:30:14 Reading Location: [address] on Reading Room Procedure Note Interface, External Ris In - 12/18/2018 3:32 AM CDT FINAL REPORT CLINICAL HISTORY: Acute abdominal pain. FINDINGS: Multiple axial images of the abdomen and pelvis were performed after the uncomplicated administration of IV contrast. Oral contrast was not given. This exam was performed according to our departmental dose-optimization program, which includes automated exposure control, adjustment of the mA and/or kV according to patient size and/or use of the iterative reconstruction technique. Comparison:None. Lower chest: Clear lungs. No pleural effusion or pneumothorax. Visualized cardiac contours normal. Liver: No significant findings. Gallbladder and biliary tree: No significant findings. Spleen: No significant findings. Adrenal Glands: No significant findings. Kidneys and ureters: No significant findings. Stomach and Duodenum: Postsurgical changes in the stomach. Pancreas: No significant findings. Bowel: No significant findings. Appendix: Normal. Bladder: Decompressed Major vascular structures: No significant findings. Reproductive organs: 2.5 x 2.4 cm right ovarian cyst. Other: Trace free fluid in the dependent pelvis, nonspecific but probably physiologic. No free air or adenopathy. Skeleton: No acute bony abnormality. IMPRESSION: 2.5 cm right ovarian cyst, almost certai nly benign. No imaging follow-up for this finding is recommended. Trace free fluid in the dependent pelvis, nonspecific but possibly physiologic. Signed: Rishi Hollis MD Report Verified Date/Time: 12/18/2018 03:30:14 Reading Location: [address] Reading Room Performing Organization Address City/State/[facility] Ph one Number GE RIS * ALT (SGPT) (12/18/2018 1:45 AM CDT) ALT 8 6 - 55 U/L [facility] Specimen Blood Performing Organization Address City/State/[facility] Ph one Number [facility] [address] [place], [place] [address] [facility] * AST (SGOT) (12/18/2018 1:45 AM CDT) AST 14 5 - 34 U/L [facility] Specimen Blood Performing Organization Address City/[facility] Ph one Number [address] [address] [facility] * Bilirubin, adult total (12/18/2018 1:45 AM CDT) Total Bilirubin 0.4 0.2 - 1.2 mg/dL [facility] Specimen Blood Performing Organization Address [facility] Ph one Number [address] [address] [facility] after 12/07/2018 Insurance Payer Benefit Subscriber ID Type Phone Address Plan / Group [employer] - MGD CARE CIG[employer] xxxxxxxxxxx HMO/POS HMO/POS/OP EN ACCESS
--- OUTSIDE RECORDS SUMMARY | 2019-12-08 02:31 | XMS REPORT | Continuity of Care Document ---
Author Author [facility] t Organization [facility] Address [address] [place] [address] Phone Unavailable Care Team Providers Care Relief Salesperson Name Role Phone Unknownmeds, Provider PCP Unavailable Alhaji KNOWLES, Kenia Del Rioilola Attphys [phone] Miguel LOYOLA, M Kadi Attphys Toby KNOWLES, Reny Austin Attphys [phone] Pepe KNOWLES, Sarah Attphys Danielito KNOWLES, Kelly Attphys Dalton Rivera CRNA Attphys Stefanie KNWOLES, Kris Rodriguez Attphys KRIS WATTS Attphys Unavailable Frances KNOWLES, Fransisco Washington Attphys Fransisco CAMACHO Attphys Unavailable Payers Payer Name Policy Type Policy Number Effective Date Expiration Date Emely arango CIGNA - MGD CARECIGNA HMO/POS/OPEN ACCESSxxxxxxxxxxxHMO/POS xxxxxxxxxxx [facility] CIGNACIGNA OPEN ACCESS/NETWORKxxxxxxxxxxx2019-PresentHMO xxxxxxxxxxx 2019 00:00:00 Ray Voodoo Problems Condition Name Condition Details Condition Category Status Onset Date Resolution Date Last Treatment Date Treating Clinician Comments Source Calculus of gallbladder with acute cholecystitis witho ut obstruction Calculus of gallbladder with acute cholecystitis without obstruction Disease Act ceasar 2019-05-26 00:00:00 Ray Manley Allergies, Adverse Reactions, Alerts This patient has no known allergies or adverse reactions. Family History Family Member Diagnosis Comments Start Date Stop Date Source Natural father Cancer [facility] Natural father Kidney disease [facility] Natural mother Cancer [facility] Social History Social Habit Start Date Stop Date Quantity Comments Source History of tobacco use Cigarette Smoker [facility] History SDOH Alcohol Std Drinks [facility] History SDOH Alcohol Binge [facility] Sex Assigned At Joe Manley Cigarettes smoked current (pack per day) - Reported 00:00:00 2019-06-12 00:00:00 Ray Manley Alcohol intake 2019-06-12 00:00:00 2019-06-12 00:00:00 Current drinker of alcohol (finding) Ray Manley Tobacco Comment 2019-05-26 00:00:00 2019-05-26 00:00:00 3 cigarrettes / day Ray Manley Alcohol Comment 2019-05-26 00:00:00 2019-05-26 00:00:00 every 3 or 4 weeks Ray Manley History SDOH Alcohol Frequency 2018-12-18 00:00:00 2018-12-18 00:00:0 0 1 [facility] Smoking Status Start Date Stop Date Source Current every day smoker 2019-06-12 00:00:00 Joe Manley Medications Ordered Medication Name Filled Medication Name Start Date Stop Da te Current Medication? Ordering Clinician Indication Dosage Frequency Signature (SIG) Comments Components Source multivitamin with minerals tablet 2019-05-29 15:05:35 Yes 1{tbl} QD Take 1 tablet by mouth daily. Ray ryan acetaminophen (TYLENOL EXTRA STRENGTH) 500 MG tablet 2019-05-29 00:00:00 2019-06-27 23:59:00 No 500mg Q6H Take 1 tablet (500 mg total) by mouth every 6 (six) hours as needed for mild pain for up to 29 days. Ray Manley traMADol (ULTRAM) 50 mg tablet 2019-05-29 00:00:00 2 23:59:00 No acute pain 50mg Q6H Take 1 tablet (50 mg total) by mouth every 6 (six) hours as needed for moderate pain for up to 5 days .acute pain. Ray Manley ciprofloxacin (CIPRO) 500 MG tablet 2019-05-29 00:00:0 0 2019-06-02 23:59:00 No 500mg Q.5D Take 1 tablet ( 500 mg total) by mouth 2 (two) times a day for 4 days. Ray Manley ciprofloxacin (CIPRO) 500 MG tablet 2019-05-29 00:00:0 0 2019-05-29 00:00:00 No 500mg Q.5D Take 1 tablet ( 500 mg total) by mouth 2 (two) times a day for 4 days. Ray Manley traMADol (ULTRAM) 50 mg tablet 2019-05-29 00:00:00 2019-05-03 8 00:00:00 No acute pain 50mg Q6H Take 1 tablet (50 mg total) by mouth every 6 (six) hours as needed for moderate pain for up to 5 days .acute pain. Ray Manley acetaminophen (TYLENOL EXTRA STRENGTH) 500 MG tablet 2019-05-29 00:00:00 2019-05-29 00:00:00 No 500mg Q6H Take 1 tablet (500 mg total) by mouth every 6 (six) hours as needed for mild pain for up to 30 days. Ray Manley traMADol (ULTRAM) 50 mg tablet 2019-05-29 00:00:00 2019-05-03 8 00:00:00 No acute pain 50mg Q6H Take 1 tablet (50 mg total) by mouth every 6 (six) hours as needed for moderate pain for up to 4 days .acute pain. Ray Manley ciprofloxacin (CIPRO) 500 MG tablet 2019-05-29 00:00:0 0 2019-05-29 00:00:00 No 500mg Q.5D Take 1 tablet ( 500 mg total) by mouth 2 (two) times a day for 3 days. Ray Manley multivitamin capsule 2019-05-18 18:36:40 Yes 1{capsule} QD Take 1 capsule by mouth daily. [facility] esomeprazole (NEXIUM) 40 MG capsule 2019-05-18 00:00:0 0 2020-05-17 23:59:00 No 40mg QD Take 1 capsule (40 mg total) by mouth da irving. [facility] acetaminophen-codeine (TYLENOL #3) 300-30 mg per tablet 2019-05-18 00:00:00 2019-05-28 23:59:00 No 1{tbl} Take 1-2 tablets by mouth every 6 (six) hours as needed for Pain for up to 10 days. Max Daily Amount: 8 tablets [facility] ondansetron (ZOFRAN) 4 MG tablet 2019-05-18 00:00:00 2019-05 23:59:00 No 4mg Take 1 tablet (4 mg total) by mouth every 6 (si x) hours for 7 days. [facility] ondansetron (ZOFRAN) 4 MG tablet 2018-12-18 00:00:00 2019-05 00:00:00 No 4mg Take 1 tablet (4 mg total) by mouth 3 (three) times daily as needed for Nausea for up to 10 doses. [facility] aluminum-magnesium hydroxide 200-200 mg/5 mL suspension 2018-12-18 00:00:00 2018-12-28 23:59:00 No 10mL Take 10 mLs by mouth as needed for Indigestion for up to 10 days. [facility] Vital Signs Vital Name Observation Time Observation Value Comments Source Systolic blood pressure 2019-11-01 19:12:00 122 mm[Hg] [facility] Diastolic blood pressure 2019-11-01 19:12:00 63 mm[Hg] [facility] Heart rate 2019-11-01 19:12:00 91 /min [facility] Body temperature 2019-11-01 19:12:00 37.17 Kathy [facility] Respiratory rate 2019-11-01 19:12:00 22 /min [facility] Body height 2019-11-01 19:12:00 162.6 cm [facility] Body weight Measured 2019-11-01 19:12:00 77.111 kg [facility] BMI 2019-11-01 19:12:00 29.18 kg/m2 [facility] Oxygen saturation in Arterial blood by Pulse oximetry 10-31 19:12:00 98 /min [facility] Sy[facility]olic blood pressure 2019-06-13 14:03:00 118 mm[Hg] Bell Voodoo Diastolic blood pressure 2019-06-13 14:03:00 66 mm[Hg] Bell Voodoo Heart rate 2019-06-13 14:03:00 102 /min Ray Manley Body temperature 2019-06-13 14:03:00 37.22 Kathy Aden Manley Body height 2019-06-13 14:03:00 162.6 cm Bell [facility] Body weight 2019-06-13 14:03:00 78.926 kg Bell Voodoo BMI 2019-06-13 14:03:00 29.87 kg/m2 Ray Paulaist Oxygen saturation in Arterial blood by Pulse oximetry 06-13 14:03:00 99 /min Ray Manley Respiratory rate 2019-05-29 11:34:20 18 /min Aden shaikh Voodoo Procedures Procedure Date / Time Performed Performing Clinician Sour e SARS-COV2/RT-PCR ([facility]) 2019-11-07 14:03:18 Saroj Mcleod [facility] ECG 12-LEAD 2019-11-01 19:05:45 Unknown, Hl7 Doctor [facility] SARS-COV2/RT-PCR ([facility]) 2019-10-25 15:47:55 Saroj Mcleod [facility] CBC HEMOGRAM 2019-05-29 04:05:00 Dennis Gonsalez Meth odist BASIC METABOLIC PANEL 2019-05-29 04:00:00 Dennis Gonsalez Voodoo MAGNESIUM LEVEL 2019-05-29 04:00:00 Dennis Gonsalez Meth odist PHOSPHORUS LEVEL 2019-05-29 04:00:00 Dennis Gonsalez Met hodist ESTIMATED GFR 2019-05-29 04:00:00 Sarah Cantu Met hodist CBC HEMOGRAM 2019-05-28 06:50:00 Dennis Gonsalez Meth odist BASIC METABOLIC PANEL 2019-05-28 06:40:00 Dennis Gonsalez Voodoo ESTIMATED GFR 2019-05-28 06:40:[address] hodist CT AN ELECTIVE ENDOTRACHEAL AIRWAY 2019-05-27 09:27:44 Moriah Rivera CHOLECYSTECTOMY, LAPAROSCOPIC 2019-05-27 09:01:00 Nina Cantu SURGICAL PATHOLOGY REQUEST 2019-05-27 08:30:00 Sarah Cantu URINE CULTURE 2019-05-27 03:14:00 Austin Luis URINALYSIS SCREEN AND MICROSCOPY, WITH REFLEX TO CULTURE 202 23:30:00 Austin Luis HCG QUALITATIVE, URINE SCREEN 2019-05-26 23:30:00 Zhanna Francoisfabian Ray Manley ECG 12-LEAD 2019-05-26 19:55:57 Kareen Cox ethodist US GALLBLADDER 2019-05-26 18:26:00 Kareen Cox ethodist HC COMPLETE BLD COUNT W/AUTO DIFF 2019-05-26 17:25:00 Austin Lindsey BASIC METABOLIC PANEL 2019-05-26 17:25:00 Blake Luis HEPATIC FUNCTION PANEL 2019-05-26 17:25:00 Eren Luis LIPASE LEVEL 2019-05-26 17:25:00 Austin Luis TYPE AND SCREEN 2019-05-26 17:25:00 Austin Luis PROTHROMBIN TIME WITH INR 2019-05-26 17:25:00 Miguel Luis PARTIAL THROMBOPLASTIN TIME (PTT) 2019-05-26 17:25:00 Austin Lindsey ESTIMATED GFR 2019-05-26 17:25:00 Austin Luis US ABDOMEN LIMITED 2019-05-18 20:01:00 Michael Watts [facility] BASIC METABOLIC PANEL (7) 2019-05-18 19:00:00 Michael Watts [facility] HEPATIC FUNCTION PANEL 2019-05-18 19:00:00 Michael Watts [facility] LIPASE 2019-05-18 19:00:00 Michael Watts [facility] URINALYSIS W/ MICROSCOPIC 2019-05-18 19:00:00 Michael Watts Si ngjonathan [facility] SCREEN, URINE 2019-05-18 19:00:00 Michael Watts Sing h [facility] CBC W/PLT COUNT & AUTO DIFFERENTIAL 2019-05-18 19:00:00 Michael Watts [facility] CT ABDOMEN/PELVIS WITH IV CONTRAST 2018-12-18 03:23:00 [facility] 2018-12-18 02:19:00 Frances Felix Quoc [facility] URINALYSIS W/ MICROSCOPIC 2018-12-18 02:19:00 Frances, [facility] BASIC METABOLIC PANEL (7) 2018-12-18 01:45:00 Frances, [facility] ALT (SGPT) 2018-12-18 01:45:00 Frances, [facility] AST (SGOT) 2018-12-18 01:45:00 Frances [facility] LIPASE 2018-12-18 01:45:00 Frances, [facility] BILIRUBIN, ADULT TOTAL 2018-12-18 01:45:00 Frances, [facility] CBC W/PLT COUNT & AUTO DIFFERENTIAL 2018-12-18 01:45:00 [facility] Plan of Care Planned Activity Planned Date Details Comments Source Future Scheduled Test 2019-12-01 00:00:00 INFLUENZA VACCINE [code = INFLUENZA VACCINE] Ray Manley Future Scheduled Test 2013 00:00:00 Screening for nora gnant neoplasm of cervix (procedure) [code = 605830582] Ray Yañez t Results Test Description Test Time Test Comments Results Result Comments Source SARS-CoV2/RT-PCR ([facility]) 2019-11-09 08:55:00 Test Item SARS-COV2/RT-PCR (test code = 71713-8) Negative Not Detected, N egative SARS-COV-2 PERFORMING LAB (test code = 28452-3) [facility]2019-11-09 08:55:00* Test Item Value Reference Range Interpretation Comments SARS-COV2/RT-PCR (test code = 6342407) Negative Not Detected, N egative SARS-COV-2 PERFORMING LAB (test code = 3574598) [facility] ECG 12 [id number] 18:21:11Interface, External Ris In - 11/04/2019 6:21 PM CDTVentricular Rate 86 BPMAtrial Rate 86 BPMP-R Interval 134 msQRS Duration 78 msQ-T Interval 354 msQTC Calculation(Bazett) 423 msP [place] 40 degreesR [place] 66 degreesT [place] 47 degreesNormal sinus rhythmNormal ECGNo previous ECGs availableConfirmed by MD TIKI, HARSHAL ([id number]) on 11/04/2019 6:21:10 [facility]2019-11-03 06:28:00* Test Item Value Reference Range Interpretation Comments SARS-COV2/RT-PCR (test code = 9459996) Negative Not Detected, N egative SARS-COV-2 PERFORMING LAB (test code = 3289244) [facility] Surgical pathology [id number] 10:46:59* Test Item Value Reference Range Interpretation Comments Case number (test code = 4678971) [id number] Surgical pathology report (test code = 2255) See link below for PDF Lab Report Result status (test code = 1229039) This is Final Report for [id number] [facility] metabolic [id number] 06:06:00* Test Item Value Reference Range Interpretation Comments Sodium (test code = 2951-2) 141 135- 148 mEq/L Potassium (test code = 2823-3) 4.0 3.5- 5.0 mEq/L Chloride (test code = 2075-0) 106 98- 112 mEq/L CO2 (test code = 2027-9) 25 24- 31 mEq/L Anion gap (test code = 28466-9) 10@ANIO 7- 15 mEq/L BUN (test code = 3094-0) 5 mg/dL 6-20 L Creatinine (test code = 2160-0) 0.57 mg/dL 0.5-0.9 Glucose (test code = 2345-7) 80 mg/dL 65-99 Calcium (test code = 36927-9) 8.4 mg/dL 8.3-10.2 Lab Interpretation (test code = 99222-2) Abnormal [facility] [id number] 06:06:00* Test Item Value Reference Range Interpretation Comments Magnesium (test code = 93914-3) 2.0 mg/dL 1.6-2.6 [place] MethodistPhosphorus [id number] 06:06:00* Test Item Value Reference Range Interpretation Comments Phosphorus (test code = 2777-1) 4.0 mg/dL 2.4-4.5 [place] MethodistEstimated [id number] 06:06:00* Test Item Value Reference Range Interpretation Comments Estimated GFR (test code = 5488) >=90 mL/min/1.73 m2 Catergory Units InterpretationG1 >=90 Normal or highG2 60-89 Mildly mhtyepxeyE6p 45-59 Mildly to moderately ssthgykggI1b 30-44 Moderately to severely decreasedG4 15-29 Severely decreasedG5 <15 Kidney failureThe eGFR was calculated using the Chronic Kidney Disease Epidemiology Collaboration (CKD-EPI) equation. Interpretation is based on recommendations of the National Kidney Foundation-Kidney Disease Outcomes Quality Initiative (NKF-KDOQI) published in 2014. [facility] ihdjcwvu2594-45-24 05:32:40* Test Item Value Reference Range Interpretation Comments WBC (test code = 52843-1) 8.09 4.50- 11.00 k/uL RBC (test code = 70951-9) 3.41 m/uL 4.2-5.5 L HGB (test code = 718-7) 9.9 g/dL 12-16 L HCT (test code = 4544-3) 31.4 % 37-47 L MCV (test code = 787-2) 92.1 fL 82-100 MCH (test code = 785-6) 29.0 pg 27-34 MCHC (test code = 786-4) 31.5 g/dL 31-37 RDW - SD (test code = 87867-8) 48.3 fL 37-55 MPV (test code = 44852-9) 11.5 fL 8.8-13.2 Platelet count (test code = 97842-3) 287 150- 400 k/uL Nucleated RBC (test code = 39209-9) 0.00 /100 WBC Lab Interpretation (test code = 87074-8) Abnormal [facility] Methodist[facility]G 12 [id number] 21:08:55* Test Item Value Reference Range Interpretation Comments Ventricular rate (test code = 253) 69 Atrial rate (test code = 255) 69 CT interval (test code = 266) 150 QRSD interval (test code = 260) 84 QT interval (test code = 264) 412 QTC interval (test code = 265) 441 P axis 1 (test code = 267) 56 QRS axis 1 (test code = 268) 71 T wave axis (test code = 270) 53 EKG impression (test code = 273) Normal sinus rhythm w ith sinus arrhythmia- Normal ECG-No previous ECGs available- [place] PrtvwrzmgXwtmfq7810-55-19 09:27:44Servando Rivera CRNA 05/27/2019 9:28 AMAirwayPerformed by: Servando Rivera CRNAAuthorized by: Kelly Esteves MD Location: ORUrgency: ElectiveDifficult Airway: No Anesthesiologist: Kelly Esteves MDResident/POST ANESTHESIA CARE UNIT NURSE/AA: Servando Rivera CRNAPerformed by: resident/POST ANESTHESIA CARE UNIT NURSE/AAPreoxygenated with 100% O2: Yes C-spine Precautions Maintained Throughout: Yes Mask Ventilation: Easy maskFinal Airway Type: Endotracheal airwayFinal Endotracheal Airway: ETTCuffed: Yes Technique Used: Direct laryngoscopyDevices/Methods Used in Placement: Intubating styletInsertion Site: OralBlade Type: MillerLaryngoscope Blade/V ideolaryngoscope Blade Size: 2ETT Size (mm): 7.0Cuff at minimum occlusion pres sure: Yes Measured from: TeethETT to Teeth (cm): 21Placement Verified by: CO2 detection, direct visualization and equal breath sounds Laryngoscopic view: G juane I - full view of glottisRapid Sequence Induction (RSI): No Modified RSI: N o Number of Attempts at Approach: 1[place] MethodistUrinalysis screen and microscopy, with reflex to [id number] 04:13:36* Test Item Value Reference Range Interpretation Comments Specimen site (test code = 2548861) Random void Color, UA (test code = 5778-6) Dark Yellow Appearance, UA (test code = 5767-9) Cloudy Specific gravity, UA (test code = 5811-5) 1.017 1.001-1.035 pH, UA (test code = 5803-2) 5.0 5.0-8.5 Protein, UA (test code = 17607-6) Negative Negative Glucose, UA (test code = 56430-9) Negative Negative Ketones, UA (test code = 2514-8) 1+ Negative A Bilirubin, UA (test code = 5770-3) Negative Negative Blood, UA (test code = 5794-3) Moderate Negative A Nitrite, UA (test code = 5802-4) Negative Negative Urobilinogen, UA (test code = 71247-7) 4.0 <2.0 A Leukocyte esterase, UA (test code = 5799-2) Negative Negative Epithelial cells, UA (test code = 5787-7) 2 /HPF WBC, UA (test code = 5821-4) <1 0- 4 /HPF RBC, UA (test code = 88404-1) <1 0- 5 /HPF Bacteria, UA (test code = 86478-3) Many None seen A Yeast, UA (test code = 85645-9) Few A Yeast with pseudohyphae, UA (test code = 81160-9) None seen Amorphous crystals (test code = 71991-1) Few Lab Interpretation (test code = 60360-5) Abnormal [facility] MethodisthCG qualitative, urine [id number] 03:02:06* Test Item Value Reference Range Interpretation Comments hCG qualitative, urine (test code = 2106-3) Negative Sensitivity of HCG test: 25 mIU/mL Ray MethodistType and wavpch2075-50-67 19:00:00* Test Item Value Reference Range Interpretation Comments ABO grouping (test code = 883-9) O Rh type (test code = 04513-7) POS Antibody screen (gel) (test code = 890-4) NEG [place] MethodistUS [id number] 18:41:25 Interface, Radiology Results 05/26/2019 6:44 PM CSTEXAMINATION: US GALLBLADDERCLINICAL HISTORY:CholelithiasisCOMPARISON: None.IMPRESSION:1. Gallbladder: There are gallstones. The gallbladder is mildly distended. Wall thickening is noted. Findings can be seen with acute cholecystitis. 2. Gallbladder Wall: Normal3. Pericholecystic Fluid: No pericholecystic fluid.4. CBD: The common bile duct is within normal limits.. The duct measures 5-6 mm.5. Other Findings: [facility]-[id number] MethodistHepatic function [id number] 18:10:19* Test Item Value Reference Range Interpretation Comments Albumin (test code = 1751-7) 4.2 g/dL 3.5-5 Total bilirubin (test code = 1974-) 0.3 mg/dL 0-1.2 Bilirubin direct (test code = 1967-) <0.2 0-0.3 Alkaline phosphatase (test code = 6768-6) 112 U/L 35-104 H Protein (test code = 2885-2) 7.8 g/dL 6.3-8.3 Iiuqvpq2665.6-7.0 g/dL1 lnqw7261.4-7.6 g/dL7 months-5ukni208.1-7.3 g/dL1-2 hiscm599.6-7.5 g/dL>3 qyahw876.0-8.0 g/zC99-9005517.3-8.3 g/dL ALT (test code = 1742-6) 24 U/L 5-50 AST (test code = 1920-8) 53 U/L 10-35 H Lab Interpretation (test code = 63499-3) Abnormal [place] MethodistLipase [id number] 18:10:19* Test Item Value Reference Range Interpretation Comments Lipase (test code = 3040-3) 26 U/L 13-60 [place] MethodistPartial thromboplastin time, vouicjibz9730-46-25 18:07:43* Test Item Value Reference Range Interpretation Comments PTT (test code = 18767-6) 28.2 23.0- 36.0 sec PTT therapeutic range for unfractionated heparin is61.0-112.0 seconds which corresponds to Anti-Xa0.3-0.7 U/ml. [place] MethodistProthrombin time with [id number] 17:57:47* Test Item Value Reference Range Interpretation Comments Prothrombin time (test code = 5902-2) 14.1 11.5- 14.5 sec INR (test code = 08447-4) 1.1 Th e International Normalized Ratio (INR) is a therapeutic monitoring tool for patients who are stable on oral anticoagulant therapy. An INR of 2.0-3.0 is suggested for deep vein thrombosis/pulmonary embolism. [facility] MethodistCBC with platelet and fstrhetkmtxh0013-37-00 17:44:58* Test Item Value Reference Range Interpretation Comments WBC (test code = 75198-7) 10.98 4.50- 11.00 k/uL RBC (test code = 80134-2) 4.04 m/uL 4.2-5.5 L HGB (test code = 718-7) 11.6 g/dL 12-16 L HCT (test code = 4544-3) 37.2 % 37-47 MCV (test code = 787-2) 92.1 fL 82-100 MCH (test code = 785-6) 28.7 pg 27-34 MCHC (test code = 786-4) 31.2 g/dL 31-37 RDW - SD (test code = 17584-3) 45.9 fL 37-55 MPV (test code = 40141-5) 11.2 fL 8.8-13.2 Platelet count (test code = 83126-3) 367 150- 400 k/uL Nucleated RBC (test code = 83595-8) 0.00 /100 WBC Neutrophils (test code = 04997-3) 58.7 % 39-69 Lymphocytes (test code = 89302-4) 32.7 % 25-45 Monocytes (test code = 97794-3) 5.9 % 0-10 Eosinophils (test code = 76712-3) 1.7 % 0-5 Basophils (test code = 33473-6) 0.5 % 0-1 Immature granulocytes (test code = 33135-2) 0.5 % 0-1 "Immature granulocytes" (promyelocytes, myelocytes, metamyelocytes) Lab Interpretation (test code = 78559-6) Abnormal Ray Ying, ABDOMINAL, [id number] 21:05:00Abdomen limited area? Add comment if clarification is needed.->Gall BladderReason for exam:->ABDOMINAL PAINFINAL REPORT Right upper quadrant abdominal ultrasound, 05/18/2019. [...] There is no evidence of free fluid. IMPRESSION:Cholelithiasis without ultrasonographic evidence of acute cholecystitis. Signed: Jcarlos Jefferson MDReport Verified Date/Time: 05/18/2019 21:05:42 Reading Location: [facility] [id number] Consult Reading Room abdomen limited 2019-05-18 21:05:00Interface, External Ris In - 05/18/2019 9:07 PM CSTFINAL REPORT Right upper quadrant abdominal ultrasound, 05/18/2019. [...] There is no evidence of free fluid. IMPRESSION:Cholelithiasis without ultrasonographic evidence of acute cholecystitis. Signed: Jcarlos Jeffersoneport Verified Date/Time: 05/18/2019 21:05:42 Reading Location: [address] Consult Reading Room [facility] metabolic panel (Na, K+, Cl, CO2, Glu, Ca, BUN, Cr)2019-05-18 19:58:00* Test Item Value Reference Range Interpretation Comments Sodium (test code = 2951-2) 137 meq/L 136-145 Potassium (test code = 2823-3) 4.0 meq/L 3.5-5.1 Chloride (test code = 2075-0) 106 meq/L 98-107 CO2 (test code = 8-9) 25 meq/L 22-29 BUN (test code = 3094-0) 11 mg/dL 7-21 Creatinine (test code = 2160-0) 0.63 mg/dL 0.57-1.25 Glucose (test code = 2345-7) 82 mg/dL 70-105 Calcium (test code = 05908-0) 8.3 mg/dL 8.4-10.2 L EGFR (test code = 02273-0) I NSUFFICIENT CLINICAL DATA TO CALCULATE ESTIMATED GFR. CHARLES (test code = CHARLES) [employer] ID - PONCHO E Lab Interpretation (test code = 23789-6) Abnormal [facility] METABOLIC [id number] 19:58:00* Test Item Value Reference Range Interpretation Comments SODIUM (BEAKER) (test code = 381) 137 meq/L 136-145 POTASSIUM (BEAKER) (test code = 379) 4.0 meq/L 3.5-5.1 CHLORIDE (BEAKER) (test code = 382) 106 meq/L 98-107 CO2 (BEAKER) (test code = 355) 25 meq/L 22-29 BLOOD UREA NITROGEN (BEAKER) (test code = 354) 11 mg/dL 7-21 CREATININE (BEAKER) (test code = 358) 0.63 mg/dL 0.57-1.25 GLUCOSE RANDOM (BEAKER) (test code = 652) 82 mg/dL 70-105 CALCIUM (BEAKER) (test code = 697) 8.3 mg/dL 8.4-10.2 L EGFR (BEAKER) (test code = 1092) INSUFFICIENT CLINICAL DATA TO CALCULATE ESTIMATED GFR. [employer] KAYLEE Leongver [id number] 19:57:00* Test Item Value Reference Range Interpretation Comments Protein, Total (test code = 2885-2) 7.1 6.0- 8.3 gm/dL Albumin (test code = 68719-8) 4.1 g/dL 3.5-5 Total Bilirubin (test code = 1974-2) 0.2 mg/dL 0.2-1.2 Bilirubin, Direct (test code = 1967-7) 0.1 mg/dL 0.1-0.5 Alkaline Phosphatase (test code = 6768-6) 101 U/L 40-150 AST (test code = 1920-8) 11 U/L 5-34 ALT (test code = 1742-6) 9 U/L 6-55 CHARLES (test code = CHARLES) [employer] KAYLEE Carey Lab Interpretation (test code = 92158-3) Normal [facility] 19:57:00* Test Item Value Reference Range Interpretation Comments Lipase (test code = 3040-3) 26 U/L 8-78 CHARLES (test code = CHARLES) [employer] KAYLEE Roberto PONCHO E Lab Interpretation (test code = 76516-3) Normal [facility]2020-01-17 19:57:00* Test Item Value Reference Range Interpretation Comments LIPASE (BEAKER) (test code = 749) 26 U/L 8-78 [employer] KAYLEE Roberto PONCHO EHEPATIC FUNCTION [id number] 19:57:00* Test Item Value Reference Range Interpretation Comments TOTAL PROTEIN (BEAKER) (test code = 770) 7.1 gm/dL 6.0-8.3 ALBUMIN (BEAKER) (test code = 1145) 4.1 g/dL 3.5-5.0 BILIRUBIN TOTAL (BEAKER) (test code = 377) 0.2 mg/dL 0.2-1.2 BILIRUBIN DIRECT (BEAKER) (test code = 706) 0.1 mg/dL 0.1-0.5 ALKALINE PHOSPHATASE (BEAKER) (test code = 346) 101 U/L 40-150 AST (SGOT) (BEAKER) (test code = 353) 11 U/L 5-34 ALT (SGPT) (BEAKER) (test code = 347) 9 U/L 6-55 [employer] ID - PONCHO EUrinalysis w/[id number] 19:38:00* Test Item Value Reference Range Interpretation Comments Color, UA (test code = 5778-6) Yellow Clarity, UA (test code = 5767-9) Clear Specific [place], UA (test code = 5811-5) 1.025 1.005-1.030 pH, UA (test code = 5803-2) 5.5 5.0-9.0 Protein, UA (test code = 12306-2) Negative Negative Glucose, UA (test code = 365) Negative Negative Ketones, UA (test code = 2514-8) 15 mg/dL Negative A Bilirubin, UA (test code = 65896-3) Negative Negative Blood, UA (test code = 39432-7) Negative Negative Nitrite, UA (test code = 5802-4) Negative Negative Leukocytes, UA (test code = 5799-2) Negative Negative Urobilinogen, UA (test code = 39649-4) 0.2 mg/dL 0.2-1 RBC, UA (test code = 58786-2) 0 /HPF WBC, UA (test code = 5821-4) 0 /HPF Specimen Source (test code = 2795) Lab Interpretation (test code = 31832-8) [facility] [id number] 19:38:00* Test Item Value Reference Range Interpretation Comments COLOR (BEAKER) (test code = 470) Yellow CLARITY (BEAKER) (test code = 469) Clear SPECIFIC GRAVITY UA (BEAKER) (test code = 468) 1.025 1.005-1 .030 PH UA (BEAKER) (test code = 467) 5.5 5.0-9.0 PROTEIN UA (BEAKER) (test code = 464) Negative Negative GLUCOSE UA (BEAKER) (test code = 365) Negative Negative KETONES UA (BEAKER) (test code = 371) 15 mg/dL Negative A BILIRUBIN UA (BEAKER) (test code = 462) Negative Negative BLOOD UA (BEAKER) (test code = 461) Negative Negative NITRITE UA (BEAKER) (test code = 465) Negative Negative LEUKOCYTE ESTERASE UA (BEAKER) (test code = 466) Negative Negat ceasar UROBILINOGEN UA (BEAKER) (test code = 463) 0.2 mg/dL 0.2-1.0 RBC UA (BEAKER) (test code = 519) 0 /HPF WBC UA (BEAKER) (test code = 520) 0 /HPF SOURCE(BEAKER) (test code = 2795) screen, [id number] 19:32:00* Test Item Value Reference Range Interpretation Comments Preg Test, Ur (test code = 2112-1) Negative [facility] [id number] 19:32:00* Test Item Value Reference Range Interpretation Comments TEST URINE (BEAKER) (test code = 583) Negative CBC with platelet count + automated [id number] 19:15:00* Test Item Value Reference Range Interpretation Comments WBC (test code = 6690-2) 8.9 3.5- 10.5 K/L RBC (test code = 789-8) 3.87 3.93- 5.22 M/L L MCHC (test code = 786-4) 32.5 32.2- 35.5 GM/DL Hematocrit (test code = 4544-3) 34.8 % 34.1-44.9 MCV (test code = 787-2) 89.9 fL 79.4-94.8 MCH (test code = 785-6) 29.2 pg 25.6-32.2 RDW (test code = 788-0) 13.5 % 11.7-14.4 Platelets (test code = 777-3) 317 150- 450 K/CU MM MPV (test code = 40681-8) 10.4 fL 9-12.3 % Neutros (test code = 429) 61 % % Lymphs (test code = 430) 29 % % Monos (test code = 431) 7 % % Eos (test code = 432) 2 % % Baso (test code = 437) 1 % # Neutros (test code = 670) 5.45 1.56- 6.13 K/L # Lymphs (test code = 414) 2.60 1.18- 3.74 K/L # Monos (test code = 415) 0.60 0.24- 0.36 K/L H # Eos (test code = 416) 0.16 0.04- 0.36 K/L # Baso (test code = 417) 0.05 0.01- 0.08 K/L Immature Granulocytes-Relative (test code = 2801) 0 % 0-1 Lab Interpretation (test code = 22799-0) Abnormal [facility] W/PLT COUNT & AUTO [id number] 19:15:00* Test Item Value Reference Range Interpretation Comments WHITE BLOOD CELL COUNT (BEAKER) (test code = 775) 8.9 K/ L 3.5- 10.5 RED BLOOD CELL COUNT (BEAKER) (test code = 761) 3.87 M/ L 3.93-5 .22 L HEMOGLOBIN (BEAKER) (test code = 410) 11.3 GM/DL 11.2-15.7 HEMATOCRIT (BEAKER) (test code = 411) 34.8 % 34.1-44.9 MEAN CORPUSCULAR VOLUME (BEAKER) (test code = 753) 89.9 fL 79. 4-94.8 MEAN CORPUSCULAR HEMOGLOBIN (BEAKER) (test code = 751) 29.2 pg 25.6-32.2 MEAN CORPUSCULAR HEMOGLOBIN CONC (BEAKER) (test code = 752) 32.5 GM/DL 32.2-35.5 RED CELL DISTRIBUTION WIDTH (BEAKER) (test code = 412) 13.5 % 11.7-14.4 PLATELET COUNT (BEAKER) (test code = 756) 317 K/CU MM 150-450 MEAN PLATELET VOLUME (BEAKER) (test code = 754) 10.4 fL 9.0-12 .3 NEUTROPHILS RELATIVE PERCENT (BEAKER) (test code = 429) 61 % LYMPHOCYTES RELATIVE PERCENT (BEAKER) (test code = 430) 29 % MONOCYTES RELATIVE PERCENT (BEAKER) (test code = 431) 7 % EOSINOPHILS RELATIVE PERCENT (BEAKER) (test code = 432) 2 % BASOPHILS RELATIVE PERCENT (BEAKER) (test code = 437) 1 % NEUTROPHILS ABSOLUTE COUNT (BEAKER) (test code = 670) 5.45 K/ L 1.56-6.13 LYMPHOCYTES ABSOLUTE COUNT (BEAKER) (test code = 414) 2.60 K/ L 1.18-3.74 MONOCYTES ABSOLUTE COUNT (BEAKER) (test code = 415) 0.60 K/ L 0. 24-0.36 H EOSINOPHILS ABSOLUTE COUNT (BEAKER) (test code = 416) 0.16 K/ L 0.04-0.36 BASOPHILS ABSOLUTE COUNT (BEAKER) (test code = 417) 0.05 K/ L 0. 01-0.08 IMMATURE GRANULOCYTES-RELATIVE PERCENT (BEAKER) (test code = 2801) 0 % 0-1 CT, [id number] 03:30:00Reason for exam:->ABDOMINAL PAINWhat is the patient's sedation requirement?->No SedationIs the patient ?->Unknown FINAL REPORT CLINICAL HISTORY: Acute abdominal pain. FIN DINGS: Multiple axial images of the abdomen and pelvis were performed after the uncomplicated administration of IV contrast. Oral contrast was not given. This exam was performed according to our departmental dose-optimization program, whic h includes automated exposure control, adjustment of the mA and/or kV according to patient size and/or use of the iterative reconstruction technique. Comparison :None. Lower chest: Clear lungs. No pleural effusion or pneumothorax. Visualized cardiac contours normal. Liver: No significant findings. Gallbladder and biliary tree: No significant findings. Spleen: No significant findings. Adrenal Glands: No significant findings. Kidneys and ureters: No significant findings. Stomach and Duodenum: Postsurgical changes in the stomach. Pancreas: No significant fin dings. Bowel: No significant findings. Appendix: Normal. Bladder: Decompresse d Major vascular structures: No significant findings. Reproductive organs: 2.5 x 2.4 cm right ovarian cyst. Other: Trace free fluid in the dependent pelvis, non specific but probably physiologic. No free air or adenopathy. Skeleton: No acute bony abnormality. IMPRESSION: 2.5 cm right ovarian cyst, almost certainly benig n. No imaging follow-up for this finding is recommended. Trace free fluid in the dependent pelvis, nonspecific but possibly physiologic. Signed: [facility] Ver[facility] Date/Time: 12/18/2018 03:30:14 Reading Location: [address] Reading Room abdomen/pelvis with IV [id number] 03:30:00 Interface, External Ris In 12/18/2018 3:32 AM CDTFINAL REPORT PATIENT ID: [id number] CLINICAL HISTORY: Acute abdominal pain. FINDINGS: Multiple [...] iterative reconstruction technique. Comparison:None. Lower chest: Clear justina ngs. No pleural effusion or pneumothorax. Visualized cardiac contours normal. Li fito: No significant findings. Gallbladder and biliary tree: No significant findi ngs. Spleen: No significant findings. Adrenal Glands: No significant findings. K idneys and ureters: No significant findings. Stomach and Duodenum: Postsurgical changes in the stomach. Pancreas: No significant findings. Bowel: No significant findings. Appendix: Normal. Bladder: Decompressed Major vascular structures: No significant findings. Reproductive organs: 2.5 x 2.4 cm right ovarian cyst. Other: Trace free fluid in the dependent pelvis, nonspecific but probably physio logic. No free air or adenopathy. Skeleton: No acute bony abnormality. IMPRESSIO N: 2.5 cm right ovarian cyst, almost certainly benign. No imaging follow-up for this finding is recommended. Trace free fluid in the dependent pelvis, nonspecif ic but possibly physiologic. Signed: [facility] Verified Date/Time: 12/18/2018 03:30:14 Reading Location: [address] Reading Room [facility], [id number] 02:41:00* Test Item Value Reference Range Interpretation Comments TEST URINE (BEAKER) (test code = 583) Negative URINALYSIS W/ [id number] 02:40:00* Test Item Value Reference Range Interpretation Comments COLOR (BEAKER) (test code = 470) Yellow CLARITY (BEAKER) (test code = 469) Hazy SPECIFIC GRAVITY UA (BEAKER) (test code = 468) 1.028 1.001-1 .035 PH UA (BEAKER) (test code = 467) 5.5 5.0-8.0 PROTEIN UA (BEAKER) (test code = 464) 30 mg/dL Negative A GLUCOSE UA (BEAKER) (test code = 365) Negative Negative KETONES UA (BEAKER) (test code = 371) Trace Negative A BILIRUBIN UA (BEAKER) (test code = 462) Negative Negative BLOOD UA (BEAKER) (test code = 461) Negative Negative NITRITE UA (BEAKER) (test code = 465) Negative Negative LEUKOCYTE ESTERASE UA (BEAKER) (test code = 466) Moderate Negat ceasar A UROBILINOGEN UA (BEAKER) (test code = 463) 8.0 mg/dL 0.2-1.0 H RBC UA (BEAKER) (test code = 519) 3 /HPF WBC UA (BEAKER) (test code = 520) 10 /HPF BACTERIA (BEAKER) (test code = 517) Rare MUCUS (BEAKER) (test code = 1574) Many SQUAMOUS EPITHELIAL (BEAKER) (test code = 516) 28 /HPF SOURCE(BEAKER) (test code = 2795) Urine, Clean Catch Bilirubin, adult [id number] 02:23:00* Test Item Value Reference Range Interpretation Comments Total Bilirubin (test code = 1975-2) 0.4 mg/dL 0.2-1.2 Lab Interpretation (test code = 37876-4) [facility] 02:23:00* Test Item Value Reference Range Interpretation Comments AST (test code = 1920-8) 14 U/L 5-34 Lab Interpretation (test code = 07126-6) [facility]2018-12-18 02:23:00* Test Item Value Reference Range Interpretation Comments ALT (test code = 1742-6) 8 U/L 6-55 Lab Interpretation (test code = 34697-8) Normal [facility]2019-08-19 02:23:00* Test Item Value Reference Range Interpretation Comments LIPASE (BEAKER) (test code = 749) 22 U/L 8-78 ALT (SGPT)2018-12-18 02:23:00* Test Item Value Reference Range Interpretation Comments ALT (SGPT) (BEAKER) (test code = 347) 8 U/L 6-55 AST (SGOT)2018-12-18 02:23:00* Test Item Value Reference Range Interpretation Comments AST (SGOT) (BEAKER) (test code = 353) 14 U/L 5-34 BASIC METABOLIC [id number] 02:23:00* Test Item Value Reference Range Interpretation Comments SODIUM (BEAKER) (test code = 381) 137 meq/L 136-145 POTASSIUM (BEAKER) (test code = 379) 3.5 meq/L 3.5-5.1 CHLORIDE (BEAKER) (test code = 382) 105 meq/L 98-107 CO2 (BEAKER) (test code = 355) 24 meq/L 22-29 BLOOD UREA NITROGEN (BEAKER) (test code = 354) 8 mg/dL 7-21 CREATININE (BEAKER) (test code = 358) 0.59 mg/dL 0.57-1.25 GLUCOSE RANDOM (BEAKER) (test code = 652) 83 mg/dL 70-105 CALCIUM (BEAKER) (test code = 697) 8.5 mg/dL 8.4-10.2 EGFR (BEAKER) (test code = 1092) 123 mL/min/1.73 sq m ESTIMATED GFR IS NOT ACCURATE CREATININE CLEARANCE IN PREDICTING GLOMERULAR FILTRATION RATE. ESTIMATED GFR IS NOT APPLICABLE FOR DIALYSIS PATIENTS. BILIRUBIN, ADULT [id number] 02:23:00* Test Item Value Reference Range Interpretation Comments BILIRUBIN TOTAL (BEAKER) (test code = 377) 0.4 mg/dL 0.2-1.2 CBC W/PLT COUNT & AUTO [id number] 02:04:00* Test Item Value Reference Range Interpretation Comments WHITE BLOOD CELL COUNT (BEAKER) (test code = 775) 12.4 K/ L 3.5- 10.5 H RED BLOOD CELL COUNT (BEAKER) (test code = 761) 3.95 M/ L 3.93-5 .22 HEMOGLOBIN (BEAKER) (test code = 410) 11.6 GM/DL 11.2-15.7 HEMATOCRIT (BEAKER) (test code = 411) 35.3 % 34.1-44.9 MEAN CORPUSCULAR VOLUME (BEAKER) (test code = 753) 89.4 fL 79. 4-94.8 MEAN CORPUSCULAR HEMOGLOBIN (BEAKER) (test code = 751) 29.4 pg 25.6-32.2 MEAN CORPUSCULAR HEMOGLOBIN CONC (BEAKER) (test code = 752) 32.9 GM/DL 32.2-35.5 RED CELL DISTRIBUTION WIDTH (BEAKER) (test code = 412) 13.0 % 11.7-14.4 PLATELET COUNT (BEAKER) (test code = 756) 378 K/CU MM 150-450 MEAN PLATELET VOLUME (BEAKER) (test code = 754) 10.9 fL 9.4-12 .3 NUCLEATED RED BLOOD CELLS (BEAKER) (test code = 413) 0 /100 WBC 0 -0 NEUTROPHILS RELATIVE PERCENT (BEAKER) (test code = 429) 60 % LYMPHOCYTES RELATIVE PERCENT (BEAKER) (test code = 430) 30 % MONOCYTES RELATIVE PERCENT (BEAKER) (test code = 431) 7 % EOSINOPHILS RELATIVE PERCENT (BEAKER) (test code = 432) 3 % BASOPHILS RELATIVE PERCENT (BEAKER) (test code = 437) 1 % NEUTROPHILS ABSOLUTE COUNT (BEAKER) (test code = 670) 7.45 K/ L 1.56-6.13 H LYMPHOCYTES ABSOLUTE COUNT (BEAKER) (test code = 414) 3.67 K/ L 1.18-3.74 MONOCYTES ABSOLUTE COUNT (BEAKER) (test code = 415) 0.87 K/ L 0. 24-0.36 H EOSINOPHILS ABSOLUTE COUNT (BEAKER) (test code = 416) 0.33 K/ L 0.04-0.36 BASOPHILS ABSOLUTE COUNT (BEAKER) (test code = 417) 0.06 K/ L 0. 01-0.08 IMMATURE GRANULOCYTES-RELATIVE PERCENT (LISA) (test code = 2801) 0 % 0-1
== END 2019-12-08 01:10 | disposition home or self-care (01) ==
LOC: ER 00:49
DX: S61.432A Puncture wound without foreign body of left hand, initial encounter (principal); W46.0XXA Contact with hypodermic needle, initial encounter; Y99.0 Civilian activity done for income or pay; F17.210 Nicotine dependence, cigarettes, uncomplicated
CPT/HCPCS: 99283

== ENCOUNTER 2020-01-04 16:51 | Emergency (ER) | payer OTHER ==
[~2020-01-04] VITALS: Ht 162.6 cm; Wt 78.0 kg
[2020-01-04] MEDS ORDERED: KETOROLAC TROMETHAMINE 60 MG/2 ML VIAL IM ONE (17:15)
[2020-01-04] MEDS ORDERED: DIAZEPAM 5 MG TAB PO ONE (17:15)
--- NOTE | 2020-01-04 17:58 | Emergency Department Note ---
History of Present Illnes History of Present Illness Chief Complaint: Abdominal Complaints History of Present Illness This is a 29 year old female presents to the ED for R flank pain with dysuria of one day duration . Historian: Patient Arrival Mode: Car Onset (how long ago): day(s) (1) Radiation: Reports flank Severity: moderate Onset quality: gradual Duration (how long): day(s) (1) Timing of current episode: constant Progression: worsening Chronicity: new Context: Denies recent illness, Denies recent surgery, Denies recent immobilization, Denies recent travel, Denies trauma/injury, Denies new medications, Denies hx of DVT/PE, Denies non-compliance w/ medications, Denies other Relieving factors: none Exacerbating factors: none Associated symptoms: Reports fever/chills, Reports malaise, Reports nausea/vomiting Past Medical/Family History Physician Review I have reviewed the patient's past medical and family history. Any updates have been documented here. Past Medical History Recent Fever: No Clinical Suspicion of Infectio: No New/Unexplained Change in Ment: No Past Medical History: None Past Surgical History: Cholecysctectomy Other Surgery: GASTRIC SLEEVE Social History Smoking Cessation: Never Smoker Alcohol Use: None Any Illegal Drug Use: No Review of Systems Review of Systems Constitutional: Reports weakness EENTM: Reports no symptoms Cardiovascular: Reports no symptoms Respiratory: Reports no symptoms Gastrointestinal: Reports abdominal pain, Reports nausea, Reports vomiting Genitourinary: Reports no symptoms Musculoskeletal: Reports no symptoms Integumentary: Reports no symptoms Neurological: Reports no symptoms Psychological: Reports no symptoms Endocrine: Reports no symptoms Hematological/Lymphatic: Reports no symptoms Physical Exam Related Data Allergies: Coded Allergies: No Known Allergies (Unverified , 10/02/19) Triage Vital Signs Vital Signs Date Time Temp Pulse Resp B/P (MAP) Pulse Ox O2 Delivery O2 Flow Rate FiO2 01/04/20 17:01 100.0 102 17 103/77 100 Room Air Vital signs reviewed: Yes Physical Exam CONSTITUTIONAL Constitutional: Present ill appearing HENT HENT: Present normocephalic, Present atraumatic, Present oropharynx clear/moist, Present nose normal HENT L/R: Present left ext ear normal, Present right ext ear normal EYES Eyes: Reports PERRL, Reports conjunctivae normal NECK Neck: Present ROM normal PULMONARY Pulmonary: Present effort normal, Present breath sounds normal CARDIOVASCULAR Cardiovascular: Present regular rhythm, Present heart sounds normal, Present capillary refill normal, Present normal rate GASTROINTESTINAL Abdominal: Present right CVA tenderness GENITOURINARY Genitourinary: Present exam deferred SKIN Skin: Present warm, Present dry MUSCULOSKELETAL Musculoskeletal: Present ROM normal NEUROLOGICAL Neurological: Present alert, Present oriented x 3, Present no gross motor or sensory deficits PSYCHOLOGICAL Psychological: Present mood/affect normal, Present judgement normal Results Laboratory Laboratory Laboratory Tests Test 01/04/20 17:14 Lab results reviewed: Yes Imaging Imaging results reviewed: Yes Impressions [place] [address] Patient Name: MONICA RAMIREZ MR #: [id number] : 1990 Age/Sex: 29/F Req #: [id number] Adm Physician: Ordered by: HANANE SOUZA DO Report #: [id number] Location: ER Room/Bed: Procedure: [id number] CT/CT ABDOMEN/PELVIS WO Exam Date: 01/04/20 Exam Time: 1818 REPORT STATUS: Signed EXAM: CT Abdomen and Pelvis WITHOUT contrast INDICATION: r flank pain COMPARISON: None. TECHNIQUE: Abdomen and pelvis were scanned utilizing a multidetector helical scanner from the lung base to the pubic symphysis without administration of IV contrast. Absence of intravenous contrast decreases sensitivity for detection of focal lesions and vascular pathology. Coronal and sagittal reformations were obtained. Routine protocol was performed. IV CONTRAST: None ORAL CONTRAST: Water COMPLICATIONS: None RADIATION DOSE: Total DLP: 699.02 mGy-cm Estimated effective dose: (DLP x 0.015 x size factor) mSv CTDIvol has been reviewed. It is below the limits set by the Radiation Protocol Committee (RPC). FINDINGS: LINES and TUBES: None. LOWER THORAX: Unremarkable HEPATOBILIARY: No focal hepatic lesions. No biliary ductal dilation. GALLBLADDER: There are cholecystectomy clips. SPLEEN: No splenomegaly.. PANCREAS: The unenhanced pancreas shows no focal masses. There is no ductal dilatation. ADRENALS: The adrenal glands are unremarkable. KIDNEYS/URETERS: No hydronephrosis. No cystic or solid mass lesions. Bilateral Armani's plaques. No definite calculus. GI TRACT: Status post bariatric surgery. No abnormal distention, wall thickening, or evidence of bowel obstruction. PELVIC ORGANS/BLADDER: The bladder is underdistended limiting evaluation. LYMPH NODES: No lymphadenopathy. VESSELS: Vessels are incompletely evaluated due to lack of IV contrast. However no definite aneurysm seen. PERITONEUM / RETROPERITONEUM: No free air or fluid. BONES: Unremarkable. SOFT TISSUES: Unremarkable. IMPRESSION: Bilateral Armani's plaques. No definite calculus. No hydronephrosis. Signed by: Dilip Callejas MD on 01/04/2020 7:01 PM Dictated By: DILIP CALLEJAS MD 00 Transcribed By: MALCOM on 01/04/201900 COPY TO: HANANE SOUZA DO~ Assessment & Plan Medical Decision Making MDM Diff dx: CBC CMP UA and CT abd /pelvis to r/o appendicitis, pyelonephritis, sepsis, kidney stone, UTI Assessment & Plan Final Impression: (1) Pyelonephritis Depart Disposition: HOME, SELF-CARE Last Vital Signs Date Time Temp Pulse Resp B/P (MAP) Pulse Ox O2 Delivery O2 Flow Rate FiO2 01/04/20 17:01 100.0 102 17 103/77 100 Room Air Home Meds Reported Medications Vit/Fe Fum/James/Fa ( 19 TABLET) 1 Each Tablet, PO DAILY 10/02/19 [Zantac] No Conflict Check, PO PRN 10/02/19 Medications in the ED Ketorolac Tromethamine 60 mg ONCE ONCE IM ; Start 01/04/20 at 17:15; Stop 01/04/20 at 17:17; Status DC Diazepam 5 mg NOW ONCE PO ; Start 01/04/20 at 17:15; Stop 01/04/20 at 17:17; Status DC HANANE SOUZA DO Jan 04, 2020 17:58
[2020-01-04 18:00] LABS: COLOR,URINE STRAW (YELLOW)
[2020-01-04 18:01] LABS: BILIRUBIN,URINE NEGATIVE (NEGATIVE); CLARITY,URINE SL CLOUDY (CLEAR); KETONES,URINE NEGATIVE (NEGATIVE); LEUKOCYTE ESTERASE ,URINE SMALL (NEGATIVE); NITRITE,URINE NEGATIVE (NEGATIVE); PREGNANCY TEST, URINE NEGATIVE (NEGATIVE); PROTEIN,URINE DIPSTICK NEGATIVE (NEGATIVE); URINE UROBILINOGEN 0.2 mg/dL (0.2 - 1)
[2020-01-04 18:20] LABS: BACTERIA,URINE MANY /HPF; EPITHELIAL CELLS,URINE FEW /LPF; RBC,URINE 0-5 /HPF (0-5)
[2020-01-04] MEDS ORDERED: ACETAMINOPHEN 325 MG TAB PO STA (18:22)
--- OUTSIDE RECORDS SUMMARY | 2020-01-04 18:35 | XMS REPORT | Clinical Summary ---
Author Author JUSTICE [facility] Organization [facility] Address Unknown Phone Unavailable Care Team Providers Care Clinical Assistant Professor Name Role Phone Unknownmeds, Provider PCP Unavailable Allergies No Known Allergies Medications End Date Status Medication Sig Dispensed Refills Start Date Active multivitamin capsule Take 1 0 capsule by mouth daily. 05/17/2020 Active esomeprazole (NEXIUM) 40 Take 1 30 capsule 0 0 MG capsule capsule (40 0 mg total) by mouth daily. 05/18/2019 Discontinued ondansetron (ZOFRAN) 4 MG Take [...] Dx) 05/18/2019 Emergency Emergency Medicine 05/18/2019 Travel after 01/03/2019 Family History Medical History Relation Name Comments [...] Name Priority Date/Time Associated Diag nosis SARS-COV2/RT-PCR ([facility] & Routine 11/07/2019 Expos ure to REF LABS) 2:03 PM CDT SARS-associated coronavirus ECG 12-LEAD Routine 11/01/2019 7:05 PM CDT SARS-COV2/RT-PCR ([facility] & Routine 10/25/2019 Expos ure to REF LABS) 3:47 PM CDT SARS-associated coronavirus US ABDOMEN LIMITED STAT 05/18/2019 8:01 PM [employer] CBC W/PLT COUNT & AUTO STAT 05/18/2019 DIFFERENTIAL 7:00 PM [employer] SCREEN, URINE STAT 05/18/2019 7:00 PM [employer] URINALYSIS W/ MICROSCOPIC Routine 05/18/2019 7:00 PM [employer] LIPASE STAT 05/18/2019 7:00 PM [employer] HEPATIC FUNCTION PANEL STAT 05/18/2019 7:00 PM [employer] BASIC METABOLIC PANEL (7) STAT 05/18/2019 7:00 PM [employer] CBC W/PLT COUNT & AUTO STAT 05/18/2019 DIFFERENTIAL 7:00 PM [employer] after 01/03/2019 Results * SARS-CoV2/RT-PCR ([facility] & Ref Labs) (11/07/2019 2:03 PM CDT) Only the most recent of 2 results within the time period is included. SARS-COV2/RT-PCR Negative Not Detected, Negative [facility] NON-INTERFACED REFERENCE LABS SARS-COV-2 PERFORMING LAB CPL [facility] NON-INT ERFACED REFERENCE LABS Specimen Other Performing Organization Address City/State/[facility] Ph one Number [facility] NON-INTERFACED REFERENCE LABS * ECG 12 lead (11/01/2019 7:05 PM CDT) Specimen Narrative Performed At Ventricular Rate 86 BPM GE MUSE Atrial Rate 86 BPM P-R Interval 134 ms QRS Duration 78 ms Q-T Interval 354 ms QTC Calculation(Bazett) 423 ms P Jasper 40 degrees R Jasper 66 degrees T Jasper 47 degrees Normal sinus rhythm Normal ECG No previous ECGs available Confirmed by MD FAIRBANKS YOCHAI ([id number] ) on 11/04/2019 6:21:10 PM Procedure Note Interface, External Ris In - 11/04/2019 6:21 PM CDT Ventricular Rate 86 BPM Atrial Rate 86 BPM P-R Interval 134 ms QRS Duration 78 ms Q-T Interval 354 ms QTC Calculation(Bazett) 423 ms P [place]asper 40 degrees R Jasper 66 degrees T [place]asper 47 degrees Normal sinus rhythm Normal ECG No previous ECGs available Confirmed by MD FAIRBANKS YOCHAI ([id number]) on 11/04/2019 6:21:10 PM Performing Organization Address City/State/Zipcode Ph one Number GE MUSE * US abdomen limited (05/18/2019 8:01 PM [employer]) Specimen Narrative Performed At FINAL REPORT [facility] Right upper quadrant abdominal ultrasou nd, 05/18/2019. [...] Report Verified Date/Time: 0 21:05:42 Reading Location: [facility] C0[facility] Consult Reading Room Procedure Note Interface, External Ris In - 05/18/2019 9:07 PM [employer] FINAL REPORT Right upper quadrant abdominal ultrasound, [...] Report Verified Date/Time: 05/18/2019 21:05:42 Reading Location: [facility] B1 [id number] Consult Reading Room Performing Organization Address City/State/Zipcode Ph one Number GE RIS * CBC with platelet count + automated diff (05/18/2019 7:00 PM [employer]) WBC 8.9 3.5 - 10.5 K/L [facility] RBC 3.87 (L) 3.93 - 5.22 M/L [facility] Hemoglobin 11.3 11.2 - 15.7 GM/DL [facility] Hematocrit 34.8 34.1 - 44.9 % [facility] [place] MCV 89.9 79.4 - 94.8 fL [facility] [place] MCH 29.2 25.6 - 32.2 pg [facility] [place] MCHC 32.5 32.2 - 35.5 GM/DL [facility] RDW 13.5 11.7 - 14.4 % [facility] [place] Platelets 317 150 - 450 K/CU MM [facility] MPV 10.4 9.0 - 12.3 fL [facility] [place] % Neutros 61 % [facility] [place] % Lymphs 29 % [facility] [place] % Monos 7 % [facility] [place] % Eos 2 % [facility] [place] % Baso 1 % [facility] [place] # Neutros 5.45 1.56 - 6.13 K/L [facility] # Lymphs 2.60 1.18 - 3.74 K/L [facility] # Monos 0.60 (H) 0.24 - 0.36 K/L [facility] # Eos 0.16 0.04 - 0.36 K/L [facility] # Baso 0.05 0.01 - 0.08 K/L [facility] Immature 0 0 - 1 % [facility] Granulocytes-Relative - [place] Specimen Blood Performing Organization Address City/[facility] Ph one Number [place] [phone] [place] * screen, urine (05/18/2019 7:00 PM [employer]) Preg Test, Ur Negative [facility] Specimen Urine Performing Organization Address [facility] one Number [address] [address] [place] * Urinalysis w/Microscopic (05/18/2019 7:00 PM [employer]) Color, UA Yellow [facility] Clarity, UA Clear [facility] Specific [place], UA 1.025 1.005 - 1.030 [facility] pH, UA 5.5 5.0 - 9.0 [facility] Protein, UA Negative Negative [facility] [place] Glucose, UA Negative Negative [facility] [place] Ketones, UA 15 mg/dL (A) Negative [facility] [place] Bilirubin, UA Negative Negative [facility] [place] Blood, UA Negative Negative [facility] [place] Nitrite, UA Negative Negative [facility] [place] Leukocytes, UA Negative Negative [facility] [place] Urobilinogen, UA 0.2 0.2 - 1.0 mg/dL [facility] RBC, UA 0 /HPF [facility] [place] WBC, UA 0 /HPF [facility] [place] Specimen Source [facility] [place] Specimen Urine Performing Organization Address City/[facility] Ph one Number [facility] [address] [place], [place] [address] [place] * Lipase (05/18/2019 7:00 PM [employer]) Lipase 26 8 - 78 U/L [facility] Specimen Blood Narrative Performed At [employer] [facility] [facility] Performing Organization Address [facility] one Number [place] [phone] [place] [address] * Liver Panel (05/18/2019 7:00 PM [employer]) Protein, Total 7.1 6.0 - 8.3 gm/dL [facility] Albumin 4.1 3.5 - 5.0 g/dL [facility] Total Bilirubin 0.2 0.2 - 1.2 mg/dL [facility] Bilirubin, Direct 0.1 0.1 - 0.5 mg/dL [facility] Alkaline Phosphatase 101 40 - 150 U/L [facility] AST 11 5 - 34 U/L [facility] ALT 9 6 - 55 U/L [facility] Specimen Blood Narrative Performed At [employer] [facility] Aurelio [facility] Performing Organization Address [facility] Ph one Number [place] [phone] [facility] * Basic metabolic panel (Na, K+, Cl, CO2, Glu, Ca, BUN, Cr) (05/18/2019 7:00 PM [employer]) Sodium 137 136 - 145 meq/L [facility] Potassium 4.0 3.5 - 5.1 meq/L [facility] Chloride 106 98 - 107 meq/L [facility] CO2 25 22 - 29 meq/L [facility] BUN 11 7 - 21 mg/dL [facility] Creatinine 0.63 0.57 - 1.25 mg/dL [facility] Glucose 82 70 - 105 mg/dL [facility] Calcium 8.3 (L) 8.4 - 10.2 mg/dL [facility] EGFR Comment: INSUFFICIENT CLINICAL [facility] DATA TO CALCULATE ESTIMATED [facility] GFR. Specimen Blood Narrative Performed At [employer] [place] [place] [facility] Performing Organization Address City/State/Zipcode Ph one Number [facility] [address] [address] [facility] after 01/03/2019 Insurance Payer Benefit Subscriber ID Type Phone Address Plan / Group [employer] - MGD CARE [employer] xxxxxxxxxxx HMO/POS HMO/POS/OP EN ACCESS
--- OUTSIDE RECORDS SUMMARY | 2020-01-04 18:35 | XMS REPORT | Clinical Summary ---
Author Author [facility] Organization [employer] Address Unknown Phone Unavailable Care Team Providers Care Storm Door Maker Name Role Phone Asked, No Pcp PCP [...] Surgery Kelly Esteves MD Wright, Young Joo, HAND CULTIVATOR 05/27/2019 Anesthesia General Surgery Event Sarah Cantu MD CHOLECYSTECTOMY, LAPAROSCOPIC 05/27/2019 Surgery General Surgery Austin Luis MD Martinez, Sylvia, MD Calculus of gallbladder with acute brandi cystitis without obstruction (Primary Dx) 05/26/2019 Hospital General Surgery - Encounter 05/29/2019 after 01/03/2019 Social History Date Tobacco Use Types Packs/Day [...] Comments Vital Sign 118/66 06/13/2019 2:03 PM FIRE CHIEF Blood Pressure 102 06/13/2019 2:03 PM FIRE CHIEF Pulse 37.2 C (99 F) 06/13/2019 2:03 PM FIRE CHIEF Temperature 18 05/29/2019 11:34 AM FIRE CHIEF Respiratory Rate 99% 06/13/2019 2:03 PM FIRE CHIEF Oxygen Saturation - - Inhaled Oxygen Concentration 78.9 kg (174 lb) 06/13/2019 2:03 PM FIRE CHIEF Weight 162.6 cm (5' 4") 06/13/2019 2:03 PM FIRE CHIEF Height 29.87 06/13/2019 2:03 PM FIRE CHIEF Body Mass Index Plan of Treatment Health Maintenance Due Date Last Done Comments CERVICAL CANCER SCREENING 2013 INFLUENZA VACCINE 01/31/2020 Procedures Comments Procedure Name Priority Date/Time Associated Diag nosis CBC HEMOGRAM Routine 05/29/2019 4:05 AM FIRE CHIEF ESTIMATED GFR Routine 05/29/2019 4:00 AM FIRE CHIEF PHOSPHORUS LEVEL Routine 05/29/2019 4:00 AM FIRE CHIEF MAGNESIUM LEVEL Routine 05/29/2019 4:00 AM FIRE CHIEF BASIC METABOLIC PANEL Routine 05/29/2019 4:00 AM FIRE CHIEF CBC HEMOGRAM STAT 05/28/2019 6:50 AM FIRE CHIEF ESTIMATED GFR STAT 05/28/2019 6:40 AM FIRE CHIEF BASIC METABOLIC PANEL STAT 05/28/2019 6:40 AM FIRE CHIEF DC AN ELECTIVE Routine 05/27/2019 ENDOTRACHEAL AIRWAY 9:27 AM FIRE CHIEF CHOLECYSTECTOMY, 05/27/2019 CHOLELITHIASIS LAPAROSCOPIC 9:01 AM FIRE CHIEF SURGICAL PATHOLOGY Routine 05/27/2019 REQUEST 8:30 AM FIRE CHIEF URINE CULTURE Routine 05/27/2019 3:14 AM FIRE CHIEF HCG QUALITATIVE, URINE Routine 05/26/2019 SCREEN 11:30 PM FIRE CHIEF URINALYSIS SCREEN AND Routine 05/26/2019 MICROSCOPY, WITH REFLEX 11:30 PM FIRE CHIEF TO CULTURE ECG 12-LEAD STAT 05/26/2019 7:55 PM FIRE CHIEF US GALLBLADDER STAT 05/26/2019 6:26 PM FIRE CHIEF ESTIMATED GFR STAT 05/26/2019 5:25 PM FIRE CHIEF PARTIAL THROMBOPLASTIN STAT 05/26/2019 TIME (PTT) 5:25 PM FIRE CHIEF PROTHROMBIN TIME WITH INR STAT 05/26/2019 5:25 PM FIRE CHIEF TYPE AND SCREEN Routine 05/26/2019 5:25 PM FIRE CHIEF LIPASE LEVEL STAT 05/26/2019 5:25 PM FIRE CHIEF HEPATIC FUNCTION PANEL STAT 05/26/2019 5:25 PM FIRE CHIEF BASIC METABOLIC PANEL STAT 05/26/2019 5:25 PM FIRE CHIEF HC COMPLETE BLD COUNT STAT 05/26/2019 W/AUTO DIFF 5:25 PM FIRE CHIEF after 01/03/2019 Results * CBC hemogram (05/29/2019 4:05 AM FIRE CHIEF) Only the most recent of 2 results within the time period is included. [facility] WBC 8.09 4.50 - 11.00 k/uL [facility] RBC 3.41 (L) 4.20 - 5.50 m/uL [facility] HGB 9.9 (L) 12.0 - 16.0 g/dL [facility] HCT 31.4 (L) 37.0 - 47.0 % [facility] MCV 92.1 82.0 - 100.0 fL [facility] MCH 29.0 27.0 - 34.0 pg [facility] MCHC 31.5 31.0 - 37.0 g/dL [facility] RDW - SD 48.3 37.0 - 55.0 fL [facility] MPV 11.5 8.8 - 13.2 fL [facility] Platelet count 287 150 - 400 k/uL [facility] Nucleated RBC 0.00 /100 WBC [facility] Specimen Blood Performing Organization Address City/State/Zipcode Ph one Number [facility] DEPARTMENT OF [address] [place] [address] PATHOLOGY AND GENOMIC MEDICINE [address] * Estimated GFR (05/29/2019 4:00 AM FIRE CHIEF) Only the most recent of 3 results within the time period is included. [facility] Estimated GFR >=90 mL/min/1.73 m2 [place] Comment: RELIGION [facility] Interpretation G1 >=90 Normal or high [...] 2014. Specimen Plasma specimen Performing Organization Address City/[facility] Ph one Number [facility] DEPARTMENT OF [address] [place] [address] PATHOLOGY AND GENOMIC MEDICINE [address] * Phosphorus level (05/29/2019 4:00 AM FIRE CHIEF) Phosphorus 4.0 2.4 - 4.5 mg/dL [facility] Specimen Plasma specimen Performing Organization Address [facility] one Number [facility] [place] [address] PATHOLOGY AND [facility] MEDICINE [address] * Magnesium level (05/29/2019 4:00 AM FIRE CHIEF) Magnesium 2.0 1.6 - 2.6 mg/dL [facility] Specimen Plasma specimen Performing Organization Address [facility] one Number [facility] DEPARTMENT OF [address] [place] [address] PATHOLOGY AND [facility] MEDICINE [address] * Basic metabolic panel (05/29/2019 4:00 AM FIRE CHIEF) Only the most recent of 3 results within the time period is included. Sodium 141 135 - 148 mEq/L [facility] Potassium 4.0 3.5 - 5.0 mEq/L [facility] Chloride 106 98 - 112 mEq/L [facility] CO2 25 24 - 31 mEq/L [facility] Anion gap 10@ANIO 7 - 15 mEq/L [facility] BUN 5 (L) 6 - 20 mg/dL [facility] Creatinine 0.57 0.50 - 0.90 mg/dL [facility] Glucose 80 65 - 99 mg/dL [facility] Calcium 8.4 8.3 - 10.2 mg/dL [facility] Specimen Plasma specimen Performing Organization Address [facility] one Number [facility] DEPARTMENT OF [address] [place] [address] PATHOLOGY AND [place] [address] HOSPITAL * Airway (05/27/2019 9:27 AM FIRE CHIEF) Narrative Performed At Servando Rivera CRNA 05/27/2019 9:28 AM Airway Performed by: Servando Rivera CRNA Authorized by: Kelly Esteves MD Location: OR Urgency: Elective Difficult Airway: No Anesthesiologist: Kelly Esteves MD Resident/HAND CULTIVATOR/AA: Servando Rivera CRNA Performed by: resident/HAND CULTIVATOR/AA Preoxygenated with 100% O2: Yes C-spine Precautions [...] * Surgical pathology request (05/27/2019 8:30 AM FIRE CHIEF) [facility] DEPARTMENT OF PATHOLOGY AND GENOMIC MEDICINE Surgical See link below for PDF Lab [facility] DEPART [facility] Report OF PATHOLOGY report AND GENOMIC MEDICINE Result status This is Final Report for [facility] DEPARTME NT [id number] OF PATHOLOGY AND GENOMIC MEDICINE Specimen Performing Organization Address City/State/Zipcode Ph one Number [facility] DEPARTMENT OF [address] [place] [address] PATHOLOGY AND GENOMIC MEDICINE * Urine culture (05/27/2019 3:14 AM FIRE CHIEF) Urine culture Escherichia coli JUAN LUIS isolate >10-5 cfu/ml RELIGION [facility] HOSPITAL characteristics of this assay on this [...] Performing Organization Address City/State/Zipcode Ph one Number [facility] DEPARTMENT OF [address] [place] [address] PATHOLOGY AND GENOMIC MEDICINE [address] * Urinalysis screen and microscopy, with reflex to culture (05/26/2019 11:30 PM FIRE CHIEF) Specimen site Random void [facility] Color, UA Dark Yellow [facility] Appearance, UA Cloudy [facility] Specific 1.017 1.001 - 1.035 [place] gravity, UA [facility] pH, UA 5.0 5.0 - 8.5 [facility] Protein, UA Negative Negative [facility] Glucose, UA Negative Negative [facility] Ketones, UA 1+ (A) Negative [facility] Bilirubin, UA Negative Negative [facility] Blood, UA Moderate (A) Negative [facility] Nitrite, UA Negative Negative [facility] Urobilinogen, 4.0 (A) <2.[address] [facility] [place] Leukocyte Negative Negative [place] esterase, [facility] Epithelial 2 /HPF [place] cells, [facility] WBC, UA <1 0 - 4 /HPF [facility] RBC, UA <1 0 - 5 /HPF [facility] Bacteria, UA Many (A) None seen [facility] Yeast, UA Few (A) [facility] Yeast with None seen [place] [facility] Amorphous Few [place] crystals [facility] Specimen Urine Performing Organization Address City/[facility] [place] one Number [facility] DEPARTMENT OF [address] [place] [address] PATHOLOGY AND GENOMIC MEDICINE [address] * hCG qualitative, urine screen (05/26/2019 11:30 PM FIRE CHIEF) [facility] hCG NegativeComment: Sensitivity [place] qualitative, of HCG test: 25 mIU/mL [facility] Specimen Urine Performing Organization Address City/[facility] Ph one Number [facility] DEPARTMENT OF [address] [place] [address] PATHOLOGY AND GENOMIC MEDICINE [address] * ECG 12 lead (05/26/2019 7:55 PM FIRE CHIEF) Ventricular 69 [facility] rate Atrial rate 69 [facility] DC interval 150 [facility] QRSD interval 84 [...] is n ot available. Performing Organization Address [facility] Ph one Number [facility] MUSE [address] [place] [address] * US Gallbladder (05/26/2019 6:26 PM FIRE CHIEF) Specimen Narrative Performed At EXAMINATION: [facility]:Cholelithiasis COMPARISON: None. IMPRESSION: 1. Gallbladder: There are gallstones. T he gallbladder is mildly distended. Wall thickening is noted. Findings can be se en with acute cholecystitis. 2. Gallbladder Wall: Normal 3. Pericholecystic Fluid: No pericholec ystic fluid. 4. CBD: The common bile duct is within normal limits.. The duct measures 5-6 mm. 5. Other Findings: None [facility]-[id number] Procedure Note Interface, Radiology Results Incoming - 05/26/2019 6:44 PM FIRE CHIEF EXAMINATION: US GALLBLADDER CLINICAL HISTORY:Cholelithiasis COMPARISON: None. IMPRESSION: 1. Gallbladder: There are gallstones. Th e gallbladder is mildly distended. Wall thickening is noted. Findings can be seen with acute cholecystitis. 2. Gallbladder Wall: Normal 3. Pericholecystic Fluid: No pericholecy stic fluid. 4. CBD: The common bile duct is within n ormal limits.. The duct measures 5-6 mm. 5. Other Findings: None [facility]-[id number] Performing Organization Address [facility] one Number [facility] [address] [place] [address] * Partial thromboplastin time, activated (05/26/2019 5:25 PM FIRE CHIEF) PTT 28.2 23.0 - 36.0 sec [place] Comment: RELIGION PTT therapeutic range for HOSPITAL unfractionated heparin is 61.0-112.0 seconds which corresponds to Anti-Xa 0.3-0.7 U/ml. Specimen Blood Performing Organization Address [facility] Ph one Number [facility] DEPARTMENT OF [address] [place] [address] PATHOLOGY AND GENOMIC MEDICINE [address] [address] [facility] * Prothrombin time with INR (05/26/2019 5:25 PM FIRE CHIEF) Prothrombin 14.1 11.5 - 14.5 sec [place] time [facility] INR 1.1 [place] Comment: RELIGION The International Normalized HOSPITAL Ratio (INR) is a therapeutic monitoring tool for patients who are stable on oral anticoagulant therapy. An INR of 2.0-3.0 is suggested for deep vein thrombosis/pulmonary embolism. Specimen Blood Performing Organization Address City/State/Zipcode Ph one Number [facility] DEPARTMENT OF [address] [place] [address] PATHOLOGY AND GENOMIC MEDICINE [address] * CBC with platelet and differential (05/26/2019 5:25 PM FIRE CHIEF) [facility] WBC 10.98 4.50 - 11.00 k/uL [facility] RBC 4.04 (L) 4.20 - 5.50 m/uL [facility] HGB 11.6 (L) 12.0 - 16.0 g/dL [facility] HCT 37.2 37.0 - 47.0 % [facility] MCV 92.1 82.0 - 100.0 fL [facility] MCH 28.7 27.0 - 34.0 pg [facility] MCHC 31.2 31.0 - 37.0 g/dL [facility] RDW - SD 45.9 37.0 - 55.0 fL [facility] MPV 11.2 8.8 - 13.2 fL [facility] Platelet count 367 150 - 400 k/uL [facility] Nucleated RBC 0.00 /100 WBC [facility] Neutrophils 58.7 39.0 - 69.0 % [facility] Lymphocytes 32.7 25.0 - 45.0 % [facility] Monocytes 5.9 0.0 - 10.0 % [facility] Eosinophils 1.7 0.0 - 5.0 % [facility] Basophils 0.5 0.0 - 1.0 % [facility] Immature 0.5Comment: "Immature 0.0 - 1.0 % [place] granulocytes granulocytes" (promyelocytes, METHOD IST myelocytes, metamyelocytes) [facility] Specimen Blood Performing Organization Address City/[facility] Ph one Number [facility] DEPARTMENT OF [address] [place] [address] PATHOLOGY AND GENOMIC MEDICINE [address] * Type and screen (05/26/2019 5:25 PM FIRE CHIEF) ABO grouping O [facility] Rh type POS [facility] Antibody screen NEG [place] (gel) [facility] Specimen Blood Performing Organization Address City/[facility] Ph one Number [facility] DEPARTMENT OF [address] [place] [address] PATHOLOGY AND GENOMIC MEDICINE [address] * Lipase level (05/26/2019 5:25 PM FIRE CHIEF) Lipase 26 13 - 60 U/L [facility] Specimen Plasma specimen Performing Organization Address City/[facility] Ph one Number [facility] DEPARTMENT OF [address] [place] [address] PATHOLOGY AND GENOMIC MEDICINE [address] * Hepatic function panel (05/26/2019 5:25 PM FIRE CHIEF) Pathologist [facility] Albumin 4.2 3.5 - 5.0 g/dL [facility] Total bilirubin 0.3 0.0 - 1.2 mg/dL [facility] Bilirubin <0.2 0.0 - 0.3 mg/dL [facility] Alkaline 112 (H) 35 - 104 U/L [place] phosphatase [facility] Protein 7.8 6.3 - 8.3 g/dL [place] Comment: RELIGION Mqdgdeu1918.6-7.0 g/dL [facility] 1 ctwo5568.4-7.6 g/dL 7 months-4jopl419.1-7.3 g/dL 1-2 txoqn442.6-7.5 g/dL >3 raxdq811.0-8.0 g/dL 18-9391846.3-8.3 g/dL ALT 24 5 - 50 U/L [facility] AST 53 (H) 10 - 35 U/L [facility] Specimen Plasma specimen Performing Organization Address [facility] Ph one Number [facility] DEPARTMENT OF [address] [place] [address] PATHOLOGY AND GENOMIC MEDICINE [address] after 01/03/2019 Insurance Type Payer Benefit Subscriber ID Effective Phone Address Plan / Dates Group O JOHN LOPEZ OPEN xxxxxxxxxxx 2019-P ACCESS/NET resent WORK Advance Directives For more information, please contact: [phone] Patient Cloth Examiner Hand Explanation Type Date Recorded Advance Directives, Living Will and Medical Power of Sugar Laboratory Assistant Advance Directives, Living Will and Medical Power of Sugar Laboratory Assistant
--- OUTSIDE RECORDS SUMMARY | 2020-01-04 18:36 | XMS REPORT | Continuity of Care Document ---
Author Author [facility] t Organization [facility] Address [address] [place] [address] Phone Unavailable Care Team Providers Care Aegis Console Operator Track Name Role Phone MD FELIPA PATTERSON PCP Alhaji KNOWLES, Kenia Titilola Attphys [phone] Miguel PIPELINE INTEGRITY ENGINEER, M Kadi Attphys Toby KNOWLES, RQuoc Austin Attphys Pepe KNOWLES, Sarah Attphys Danielito KNOWLES, Kelly Attphys Dalton Rivera CRNA Attphys Stefanie KNOWLES, Kris Rodriguez Attphys KRIS WATTS Attphys Unavailable Fransisco CAMACHO Attphys Unavailable Payers Payer Name Policy Type Policy Number Effective Date Expiration Date Emely arango Cigna Hmo [id number] 2019 00:00:00 [facility] CIGNA - MGD CARECIGNA HMO/POS/OPEN ACCESSxxxxxxxxxxxHMO/POS xxxxxxxxxxx [facility] CIGNACIGNA OPEN ACCESS/NETWORKxxxxxxxxxxx2019-PresentHMO xxxxxxxxxxx 2019 00:00:00 Ray Manley Problems Condition Name Condition Details Condition Category Status Onset Date Resolution Date Last Treatment Date Treating Clinician Comments Source Calculus of gallbladder with acute cholecystitis witho ut obstruction Calculus of gallbladder with acute cholecystitis without obstruction Disease Act ceasar 2019-05-26 00:00:00 Ray Manley Needle stick injury Problem Active [facility] Allergies, Adverse Reactions, Alerts This patient has no known allergies or adverse reactions. Family History Family Member Diagnosis Comments Start Date Stop Date Source Natural father Cancer [facility] Natural father Kidney disease [facility] Natural mother Cancer [facility] Social History Social Habit Start Date Stop Date Quantity Comments Source History of tobacco use Cigarette Smoker [facility] History SDOH Alcohol Std Drinks [facility] History SDOH Alcohol Binge [facility] Sex Assigned At [facility] Cigarettes smoked current (pack per day) - Reported 00:00:00 2019-06-12 00:00:00 Ray Manley Alcohol intake 2019-06-12 00:00:00 2019-06-12 00:00:00 Current drinker of alcohol (finding) Ray Manley Tobacco Comment 2019-05-26 00:00:00 2019-05-26 00:00:00 3 cigarrettes / day [facility] Alcohol Comment 2019-05-26 00:00:00 2019-05-26 00:00:00 every 3 or 4 weeks Ray Manley History SDOH Alcohol Frequency 2018-12-18 00:00:00 2018-12-18 00:00:0 0 1 [facility] Smoking Status Start Date Stop Date [...] QD Take 1 capsule by mouth daily. [facility] esomeprazole (NEXIUM) 40 MG capsule 2019-05-18 00:00:0 0 2020-05-17 23:59:00 No 40mg QD Take 1 capsule (40 mg total) by mouth da irving. [facility] acetaminophen-codeine (TYLENOL #3) 300-30 mg per tablet 2019-05-18 00:00:00 2019-05-28 23:59:00 No 1{tbl} Take 1-2 tablets by mouth every 6 (six) hours as needed for Pain for up to 10 days. Max Daily Amount: 8 tablets [facility] ondansetron (ZOFRAN) 4 MG tablet 2019-05-18 00:00:00 2019-05 23:59:00 No 4mg Take 1 tablet (4 mg total) by mouth every 6 (si x) hours for 7 days. [facility] ondansetron (ZOFRAN) 4 MG tablet 2018-12-18 00:00:00 2019-05 00:00:00 No 4mg Take 1 tablet (4 mg total) by mouth 3 (three) times daily as needed for Nausea for up to 10 doses. [facility] Vit/Fe Fum/James/Fa ( 19 Tablet) 1 Eac h TABLET Vit/Fe Fum/James/Fa ( 19 Tablet) [address] Yes Daily [facility] Zantac Zantac Yes As Needed [facility] Vital Signs Vital Name Observation Time Observation Value Comments Source Weight 2019-12-08 00:50:00 172 [lb_av] [facility] BMI (Body Mass Index) 2019-12-08 00:50:00 29.5 kg/m2 [facility] Systolic blood pressure 2019-11-01 19:12:00 122 mm[Hg] [facility] Diastolic blood pressure 2019-11-01 19:12:00 63 mm[Hg] [facility] Heart rate 2019-11-01 19:12:00 91 /min [facility] Body temperature 2019-11-01 19:12:00 37.17 Kathy [facility] Respiratory rate 2019-11-01 19:12:00 22 /min [facility] Body height 2019-11-01 19:12:[address] [facility] Body weight Measured 2019-11-01 19:12:00 77.111 kg [facility] BMI 2019-11-01 19:12:00 29.18 kg/m2 [facility] Oxygen saturation in Arterial blood by Pulse oximetry 10-31 19:12:00 98 [facility] 2019-10-05 12:12:00 97.8 [degF] [facility] Systolic blood pressure 2019-06-13 14:03:00 118 mm[Hg] [facility] Diastolic blood pressure 2019-06-13 14:03:00 66 mm[Hg] [facility] Heart rate 2019-06-13 14:03:00 102 /min [facility] Body temperature 2019-06-13 14:03:00 37.22 Kathy [facility] neel [facility] Body height 2019-06-13 14:03:00 162.6 cm [facility] Body weight 2019-06-13 14:03:00 78.926 kg [facility] BMI 2019-06-13 14:03:00 29.87 kg/m2 [facility] Oxygen saturation in Arterial blood by Pulse oximetry 06-13 14:03:00 99 /min [facility] Respiratory rate 2019-05-29 11:34:20 18 /min [facility] ton [facility] Procedures Procedure Date / Time Performed Performing Clinician Sour e SARS-COV2/RT-PCR ([facility]) 2019-11-07 14:03:18 Saroj Mcleod [facility] ECG 12-LEAD 2019-11-01 19:05:45 Unknown, Hl7 Doctor [facility] SARS-COV2/RT-PCR ([facility]) 2019-10-25 15:47:55 Saroj Mcleod [facility] EGD BIOPSY SINGLE/MULTIPLE 2019-10-05 00:00:00 [facility] COLONOSCOPY AND BIOPSY 2019-10-05 00:00:00 [facility] CBC HEMOGRAM 2019-05-29 04:05:00 Dennis Gonsalez Meth odtammy BASIC METABOLIC PANEL 2019-05-29 04:00:00 Dennis Gonsalez MAGNESIUM LEVEL 2019-05-29 04:00:00 Dennis Gonsalez Meth odist PHOSPHORUS LEVEL 2019-05-29 04:00:00 Dennis Gonsalez Met [facility]odist ESTIMATED GFR 2019-05-29 04:00:00 Sarah Cantu [facility] CBC HEMOGRAM 2019-05-28 06:50:00 Dennis Gonsalez odist BASIC METABOLIC PANEL 2019-05-28 06:40:00 Dennis Gonsalez ESTIMATED GFR 2019-05-28 06:40:00 Sarah Cantu [facility]od[facility] VT AN ELECTIVE ENDOTRACHEAL AIRWAY 2019-05-27 09:27:44 Moriah Rivera CHOLECYSTECTOMY, LAPAROSCOPIC 2019-05-27 09:01:00 Nina Cantu SURGICAL PATHOLOGY REQUEST 2019-05-27 08:30:00 Sarah Cantu URINE CULTURE 2019-05-27 03:14:00 Austin Luis URINALYSIS SCREEN AND MICROSCOPY, WITH REFLEX TO CULTURE 23:30:00 Austin Luis HCG QUALITATIVE, URINE SCREEN 2019-05-26 23:30:00 Zhanna Francois ECG 12-LEAD 2019-05-26 19:55:57 Kareen Cox ethodist [...] US ABDOMEN LIMITED 2019-05-18 20:01:00 Michael Watts [facility] BASIC METABOLIC PANEL (7) 2019-05-18 19:00[facility]00 [facility] 2019-05-18 19:00[facility]00 [facility] 2019-05-18 19:00:00 Stefanie [facility] URINALYSIS W/ MICROSCOPIC 2019-05-18 19:00:00 [facility] S[facility]EN, [facility]INE 2019-05-18 19:00:00 [facility] W/PLT COUNT & AUTO DIFFERENTIAL 2019-05-18 19:00:00 [facility] Care Planned Activity Planned Date Details Comments Source Future Scheduled Test 2020-01-31 00:00:00 INFLUENZA VACCINE [code = INFLUENZA VACCINE] Ray Manley Future Scheduled Test 2013 00:00:00 Screening for nora gnant neoplasm of cervix (procedure) [code = 185753931] Ray Yañez t Instructions Blood/Body Fluid Exposure - Occupational [facility] Encounters Start Date/Time End Date/Time Encounter Type Admission Type [facility] Care Department Encounter ID Source 2019-12-08 00:49:00 2019-12-08 01:10:00 Departed Emergency Room [facility] [id number] [facility] 2019-10-05 08:50:00 2019-10-05 08:50:00 Registered Surgical Day Care [facility] [id number] [facility] Results Test Description Test Time Test Comments Results Result Comments Source SARS-CoV2/RT-PCR ([facility]) 2019-11-09 08:55:00 Test Item SARS-COV2/RT-PCR (test code = 77921-1) Negative Not Detected, N egative SARS-COV-2 PERFORMING LAB (test code = 44989-7) [facility]2019-11-09 08:55:00* Test Item Value Reference Range Interpretation Comments SARS-COV2/RT-PCR (test code = 4997446) Negative Not Detected, N egative SARS-COV-2 PERFORMING LAB (test code = 3565344) CPL ECG 12 [id number] 18:21:11Interface, External Ris In - 11/04/2019 6:21 PM CDTVentricular Rate 86 BPMAtrial Rate 86 BPMP-R Interval 134 msQRS Duration 78 msQ-T Interval 354 msQTC Calculation(Bazett) 423 msP [place] 40 degreesR [place] 66 degreesT [place] 47 degreesNormal sinus rhythmNormal ECGNo previous ECGs availableConfirmed by MD TIKI, HARSHAL ([id number]) on 11/04/2019 6:21:10 [facility]2019-11-03 06:28:00* Test Item Value Reference Range Interpretation Comments SARS-COV2/RT-PCR (test code = 4461732) Negative Not Detected, N egative SARS-COV-2 PERFORMING LAB (test code = 4938929) CPL Urine human chorionic gonadotropin (hCG) tbbratxvi9580-20-90 09:05:00* Test Item Value Reference Range Interpretation Comments Urine Test (test code = 2106-3) NEGATIVE NEGATIVE [facility] procedure less than one hour [id number] 16:13:00* Test Item Value Reference Range Interpretation Comments Coronavirus (PCR) (test code = Coronavirus (PCR)) NOT DETECTED NOTD ETECTED SARS-COV-2 (COVID19), HIGHRISK, RT-PCRNegative results do not preclude SARS-CoV- 2 infection and should not be used as the sole basis for patient management deci sions. Negative results must be combined with clinical observations, patient his tory, and epidemiological information. Optimum specimen types and timing for pea k viral levels during infections caused by SARS-CoV-2 have not been determined. Collection of multiple specimens ot types of specimens may be necessary to detec t virus. Improper specimen collection and handling, sequence variability under p rimers/probes, or organism present below the limit of detection may lead to fals e negative results. Positive and negative predictive values of testing are highl y dependent on prevalance. False negative test results are more likely when prev alence is high.The expected result is negative (not detected).The SARS-CoV-2 faustino t is intended for the qualitative detection of nucleic acid from SARS-CoV-2 in n asopharyngeal and oropharyngeal swab samples from patients who meet COVID-19 cli nical and or epidemiological criteria. For lower respiratory tract specimens, th e assay is submitted for authoriztion by FDA under an Emergency Use Authorizatio n (EUA). Testing methodology is real time RT-PCR. If received as separate collec tion devices, nasopharygeal and oropharyngeal specimens are combined for analysi s. Additional specimens may be split to a separate accession for analysi and rep orting as this test includes a single unit of service.Test results must be corre lated with clinical presentation and evaluated in the context of other laborator y and epidemiologic data. Test performance can be affected because the epidemiol ogy and clinical spectrum of infection caused by SARS-CoV-2 is not fully known. For example, the optimum types of specimens to collect and when during the cours e of infection these specimens are most likely to contain detectable viral RNA m ay not be known.This test has not been Food and Drug Administration (FDA) cleare d or approved and has been authorized by FDA under an Emergency Use Authorizatio n (EUA). The test is only authorized for the duration of the declaration that ci rcumstances exist justifying the authorization of emergency use of in vitro diag nostic tests for detection and/or diagnosis of SARS-CoV-2 under section 564(b) o f the Act, 21 U.S.C. section 360bbb-3(b)(1), unless the authorization is termina tosha or revoked sooner. [facility] are certified under the [facility] Laboratory Improvement Amendments of 1988 (CLIA), 42 U.S.C. section 263a , to perform high complexity tests.Testing performed by [facility] [address] [place], [place] [phone] Director: Roderick Brush M.D.CLIA # [id number] [facility] Surgical pathology [id number] 10:46:59* Test Item Value Reference Range Interpretation Comments Case number (test code = 9407636) [id number] Surgical pathology report (test code = 2255) See link below for PDF Lab Report Result status (test code = 9946304) This is Final Report for [id number] [facility] metabolic [id number] 06:06:00* Test Item Value Reference Range Interpretation Comments Sodium (test code = 2951-2) 141 135- 148 mEq/L Potassium (test code = 2823-3) 4.0 3.5- 5.0 mEq/L Chloride (test code = 2075-0) 106 98- 112 mEq/L CO2 (test code = 2027-9) 25 24- 31 mEq/L Anion gap (test code = 09834-8) 10@ANIO 7- 15 mEq/L BUN (test code = 3094-0) 5 mg/dL 6-20 L Creatinine (test code = 2160-0) 0.57 mg/dL 0.5-0.9 Glucose (test code = 2345-7) 80 mg/dL 65-99 Calcium (test code = 15003-2) 8.4 mg/dL 8.3-10.2 Lab Interpretation (test code = 08898-2) Abnormal [facility] MethodistMagnesium [id number] 06:06:00* Test Item Value Reference Range Interpretation Comments Magnesium (test code = 60639-7) 2.0 mg/dL 1.6-2.6 [facility] MethodistPhosphorus [id number] 06:06:00* Test Item Value Reference Range Interpretation Comments Phosphorus (test code = 2777-1) 4.0 mg/dL 2.4-4.5 [facility] MethodistEstimated [id number] 06:06:00* Test Item Value Reference Range Interpretation Comments Estimated GFR (test code = 5488) >=90 mL/min/1.73 m2 Catergory Units InterpretationG1 >=90 Normal or highG2 60-89 Mildly bkxjohrhxM2q 45-59 Mildly to moderately ihtgtqwbkK1v 30-44 Moderately to severely decreasedG4 15-29 Severely decreasedG5 <15 Kidney failureThe eGFR was calculated using the Chronic Kidney Disease Epidemiology Collaboration (CKD-EPI) equation. Interpretation is based on recommendations of the National Kidney Foundation-Kidney Disease Outcomes Quality Initiative (NKF-KDOQI) published in 2014. [facility] zaiwohnm8516-79-56 05:32:40* Test Item Value Reference Range Interpretation Comments WBC (test code = 97331-1) 8.09 4.50- 11.00 k/uL RBC (test code = 54393-0) 3.41 m/uL 4.2-5.5 L HGB (test code = 718-7) 9.9 g/dL 12-16 L HCT (test code = 4544-3) 31.4 % 37-47 L MCV (test code = 787-2) 92.1 fL 82-100 MCH (test code = 785-6) 29.0 pg 27-34 MCHC (test code = 786-4) 31.5 g/dL 31-37 RDW - SD (test code = 47006-8) 48.3 fL 37-55 MPV (test code = 51141-7) 11.5 fL 8.8-13.2 Platelet count (test code = 26143-7) 287 150- 400 k/uL Nucleated RBC (test code = 03456-4) 0.00 /100 WBC Lab Interpretation (test code = 84340-6) Abnormal [facility] 12 [id number] 21:08:55* Test Item Value Reference Range Interpretation Comments Ventricular rate (test code = 253) 69 Atrial rate (test code = 255) 69 VT interval (test code = 266) 150 QRSD [...] sinus arrhythmia- Normal ECG-No previous ECGs available- Ray GaleasNihjsywueRngpis8611-73-56 09:27:44Seravndo Rivera CRNA 05/27/2019 9:28 AMAirwayPerformed by: Servando Rivera CRNAAuthorized by: Kelly Esteves MD Location: ORUrgency: ElectiveDifficult Airway: No Anesthesiologist: Kelly Esteves MDResident/WIG SALES CONSULTANT/AA: Servando Rivera CRNAPerformed by: resident/WIG SALES CONSULTANT/AAPreoxygenated with 100% O2: Yes C-spine Precautions Maintained [...] and equal breath sounds Laryngoscopic view: G rade I - full view of glottisRapid Sequence Induction (RSI): No Modified RSI: N o Number of Attempts at Approach: 1[facility] MethodistUrinalysis screen and microscopy, with reflex to ibfxdbw8026-04-72 04:13:36* Test Item Value Reference Range Interpretation Comments Specimen site (test code = 9301098) Random void Color, UA (test code = 5778-6) Dark Yellow Appearance, UA (test code = 5767-9) Cloudy Specific gravity, UA (test code = 5811-5) 1.017 1.001-1.035 pH, UA (test code = 5803-2) 5.0 5.0-8.5 Protein, UA (test code = 60282-8) Negative Negative Glucose, UA (test code = 41943-6) Negative Negative Ketones, UA (test code = 2514-8) 1+ Negative A Bilirubin, UA (test code = 5770-3) Negative Negative Blood, UA (test code = 5794-3) Moderate Negative A Nitrite, UA (test code = 5802-4) Negative Negative Urobilinogen, UA (test code = 79501-2) 4.0 <2.0 A Leukocyte esterase, UA (test code = 5799-2) Negative Negative Epithelial cells, UA (test code = 5787-7) 2 /HPF WBC, UA (test code = 5821-4) <1 0- 4 /HPF RBC, UA (test code = 27274-4) <1 0- 5 /HPF Bacteria, UA (test code = 32946-4) Many None seen A Yeast, UA (test code = 69594-8) Few A Yeast with pseudohyphae, UA (test code = 36556-9) None seen Amorphous crystals (test code = 89332-0) Few Lab Interpretation (test code = 99110-0) Abnormal [facility] MethodisthCG qualitative, urine szybnh8763-75-28 03:02:06* Test Item Value Reference Range Interpretation Comments hCG qualitative, urine (test code = 2106-3) Negative Sensitivity of HCG test: 25 mIU/mL [facility] MethodistType and owdumw5771-62-32 19:00:00* Test Item Value Reference Range Interpretation Comments ABO grouping (test code = 883-9) O Rh type (test code = 03692-4) POS Antibody screen (gel) (test code = 890-4) NEG [facility] MethodistUS Baxylcqyspc3130-06-98 18:41:25 Interface, Radiology Results 05/26/2019 6:44 PM CSTEXAMINATION: US GALLBLADDERCLINICAL HISTORY:CholelithiasisCOMPARISON: None.IMPRESSION:1. Gallbladder: There are gallstones. The gallbladder is mildly distended. Wall thickening is noted. Findings can be seen with acute cholecystitis. 2. Gallbladder Wall: Normal3. Pericholecystic Fluid: No pericholecystic fluid.4. CBD: The common bile duct is within normal limits.. The duct measures 5-6 mm.5. Other Findings: [facility]-[id number] MethodistHepatic function teuqj0057-06-36 18:10:19* Test Item Value Reference Range Interpretation Comments Albumin (test code = 1751-7) 4.2 g/dL 3.5-5 Total bilirubin (test code = 1974-) 0.3 mg/dL 0-1.2 Bilirubin direct (test code = 1967-) <0.2 0-0.3 Alkaline phosphatase (test code = 6768-6) 112 U/L 35-104 H Protein (test code = 2885-2) 7.8 g/dL 6.3-8.3 Ulvtqow0743.6-7.0 g/dL1 sdsk5943.4-7.6 g/dL7 months-8mjed274.1-7.3 g/dL1-2 .6-7.5 g/dL>3 .0-8.0 g/iI83-7706671.3-8.3 g/dL ALT (test code = 1742-6) 24 U/L 5-50 AST (test code = 1920-8) 53 U/L 10-35 H Lab Interpretation (test code = 92107-5) Abnormal [facility] MethodistLipase ptvpb8150-52-03 18:10:19* Test Item Value Reference Range Interpretation Comments Lipase (test code = 3040-3) 26 U/L 13-60 [facility] MethodistPartial thromboplastin time, noybhyuyh3082-54-68 18:07:43* Test Item Value Reference Range Interpretation Comments PTT (test code = 00861-1) 28.2 23.0- 36.0 sec PTT therapeutic range for unfractionated heparin is61.0-112.0 seconds which corresponds to Anti-Xa0.3-0.7 U/ml. [facility] MethodistProthrombin time with [id number] 17:57:47* Test Item Value Reference Range Interpretation Comments Prothrombin time (test code = 5902-2) 14.1 11.5- 14.5 sec INR (test code = 36692-9) 1.1 Th e International Normalized Ratio (INR) is a therapeutic monitoring tool for patients who are stable on oral anticoagulant therapy. An INR of 2.0-3.0 is suggested for deep vein thrombosis/pulmonary embolism. [facility] MethodistCBC with platelet and yudwaxnacyhq3086-08-66 17:44:58* Test Item Value Reference Range Interpretation Comments WBC (test code = 49254-8) 10.98 4.50- 11.00 k/uL RBC (test code = 11702-6) 4.04 m/uL 4.2-5.5 L HGB (test code = 718-7) 11.6 g/dL 12-16 L HCT (test code = 4544-3) 37.2 % 37-47 MCV (test code = 787-2) 92.1 fL 82-100 MCH (test code = 785-6) 28.7 pg 27-34 MCHC (test code = 786-4) 31.2 g/dL 31-37 RDW - SD (test code = 91460-1) 45.9 fL 37-55 MPV (test code = 66343-9) 11.2 fL 8.8-13.2 Platelet count (test code = 30668-6) 367 150- 400 k/uL Nucleated RBC (test code = 65635-8) 0.00 /100 WBC Neutrophils (test code = 25715-1) 58.7 % 39-69 Lymphocytes (test code = 90984-0) 32.7 % 25-45 Monocytes (test code = 33808-7) 5.9 % 0-10 Eosinophils (test code = 36166-5) 1.7 % 0-5 Basophils (test code = 04531-0) 0.5 % 0-1 Immature granulocytes (test code = 78271-8) 0.5 % 0-1 "Immature granulocytes" (promyelocytes, myelocytes, metamyelocytes) Lab Interpretation (test code = 63430-6) Abnormal [facility] MethodistUS, ABDOMINAL, [id number] 21:05:00Abdomen limited area? Add comment if clarification [...] [place] Verified Date/Time: 05/18/2019 21:05:42 Reading Location: [facility] C013 Consult Reading Room abdomen limited 2019-05-18 21:05:00Interface, [...] MDReport Verified Date/Time: 05/18/2019 21:05:42 Reading Location: [facility] B1 C013W Consult Reading Room [facility] metabolic panel (Na, K+, Cl, CO2, Glu, [...] 82 mg/dL 70-105 Calcium (test code = 90398-8) 8.3 mg/dL 8.4-10.2 L EGFR (test code = 34598-9) I NSUFFICIENT CLINICAL DATA TO CALCULATE ESTIMATED GFR. CHARLES (test code = CHARLES) Nurse Transitional KAYLEE ISAAC E Lab Interpretation (test code = 94771-3) Abnormal [facility] METABOLIC [id number] 19:58:00* Test Item Value Reference Range Interpretation [...] INSUFFICIENT CLINICAL DATA TO CALCULATE ESTIMATED GFR. Nurse Transitional KAYLEE - PONCHOMoriah Leongver [id number] 19:57:00* Test Item Value Reference Range Interpretation Comments Protein, Total (test code = 2885-2) 7.1 6.0- 8.3 gm/dL Albumin (test code = 74520-9) 4.1 g/dL 3.5-5 Total Bilirubin (test code = 1974-2) 0.2 mg/dL 0.2-1.2 Bilirubin, Direct (test code = 1967-7) 0.1 mg/dL 0.1-0.5 Alkaline Phosphatase (test code = 6768-6) 101 U/L 40-150 AST (test code = 1920-8) 11 U/L 5-34 ALT (test code = 1742-6) 9 U/L 6-55 CHARLES (test code = CHARLES) Nurse Transitional ID - PONCHO E Lab Interpretation (test code = 35623-3) [facility] 19:57:00* Test Item Value Reference Range Interpretation Comments Lipase (test code = 3040-3) 26 U/L 8-78 CHARLES (test code = CHALRES) Nurse Transitional ID - PONCHO E Lab Interpretation (test code = 17674-0) Normal [facility]2020-[facility] 19:57:00* Test Item Value Reference Range Interpretation Comments LIPASE (BEAKER) (test code = 749) 26 U/L 8-78 Nurse Transitional ID - PONCHO EHEPATIC FUNCTION [id number] 19:57:00* Test Item Value Reference Range Interpretation [...] (test code = 347) 9 U/L 6-55 Nurse Transitional ID - PONCHO EUrinalysis w/Fkvoyiyjmsf9558-71-76 19:38:00* Test Item Value Reference Range Interpretation Comments Color, UA (test code = 5778-6) Yellow Clarity, UA (test code = 5767-9) Clear Specific [place], UA (test code = 5811-5) 1.025 1.005-1.030 pH, UA (test code = 5803-2) 5.5 5.0-9.0 Protein, UA (test code = 50751-3) Negative Negative Glucose, UA (test code = 365) Negative Negative Ketones, UA (test code = 2514-8) 15 mg/dL Negative A Bilirubin, UA (test code = 24635-9) Negative Negative Blood, UA (test code = 88437-9) Negative Negative Nitrite, UA (test code = 5802-4) Negative Negative Leukocytes, UA (test code = 5799-2) Negative Negative Urobilinogen, UA (test code = 64155-1) 0.2 mg/dL 0.2-1 RBC, UA (test code = 05403-7) 0 /HPF WBC, UA (test code = 5821-4) 0 /HPF Specimen Source (test code = 2795) Lab Interpretation (test code = 63627-0) Abnormal [facility]/ [id number] 19:38:00* Test Item Value Reference Range Interpretation [...] /HPF SOURCE(BEAKER) (test code = 2795) screen, hukme5120-63-95 19:32:00* Test Item Value Reference Range Interpretation Comments Preg Test, Ur (test code = 2112-1) Negative [facility] CenterPREGNANCY SCREEN, [id number] 19:32:00* Test Item Value Reference Range Interpretation Comments TEST URINE (BEAKER) (test code = 583) Negative CBC with platelet count + automated [id number] 19:15:00* Test Item Value Reference Range Interpretation [...] 450 K/CU MM MPV (test code = 06863-3) 10.4 fL 9-12.3 % Neutros (test code [...] % 0-1 Lab Interpretation (test code = 88614-8) Abnormal [facility] W/PLT COUNT & AUTO [id number] 19:15:00* Test Item Value Reference Range Interpretation [...] code = 2801) 0 % 0-1 CT, [id number] 03:30:00Reason for exam:->ABDOMINAL PAINWhat is the patient's [...] pelvis, nonspecific but possibly physiologic. Signed: Rishi Church Verified Date/Time: 12/18/2018 03:30:14 Reading Location: [address] Reading Room Electronically signed by: RISHI CHURCH M.D. on 0 12/18/2018 03:30 AM SCREEN, [id number] 02:41:00* Test Item Value Reference Range Interpretation Comments TEST URINE (BEAKER) (test code = 583) Negative URINALYSIS W/ [id number] 02:40:00* Test Item Value Reference Range Interpretation [...] (test code = 2795) Urine, Clean Catch [id number] 02:23:00* Test Item Value Reference Range Interpretation Comments LIPASE (BEAKER) (test code = 749) 22 U/L 8-78 ALT (SGPT)2018-12-18 02:23:00* Test Item Value Reference Range Interpretation Comments ALT (SGPT) (BEAKER) (test code = 347) 8 U/L 6-55 AST (SGOT)2018-12-18 02:23:00* Test Item Value Reference Range Interpretation Comments AST (SGOT) (BEAKER) (test code = 353) 14 U/L 5-34 BASIC METABOLIC [id number] 02:23:00* Test Item Value Reference Range Interpretation [...] NOT APPLICABLE FOR DIALYSIS PATIENTS. BILIRUBIN, ADULT [id number] 02:23:00* Test Item Value Reference Range Interpretation Comments BILIRUBIN TOTAL (BEAKER) (test code = 377) 0.4 mg/dL 0.2-1.2 CBC W/PLT COUNT & AUTO [id number] 02:04:00* Test Item Value Reference Range Interpretation [...]
[2020-01-04] MEDS ORDERED: SODIUM CHLORIDE 0.9% 1000ML 1,000 ML IV STA (18:40)
[2020-01-04 18:54] LABS: BASOPHILS # (AUTO) 0.1 (0.0-0.1); BASOPHILS % 0.7 % (0.0-1.0); EOSINOPHILS % 0.1 % (0.0-6.0); HEMATOCRIT 34.9 % (34.2-44.1); LYMPHOCYTES # (AUTO) 1.6 (1.0-3.2); LYMPHOCYTES % 15.7 % (18.0-39.1); MEAN CORPUSCULAR HEMOGLOBIN 27.7 pg (28-32); MEAN CORPUSCULAR HGB CONC 31.5 g/dL (31-35); MEAN CORPUSCULAR VOLUME 87.9 fL (81-99); MONOCYTES # (AUTO) 0.8 (0.2-0.8); MONOCYTES % 7.9 % (4.4-11.3); NEUTROPHILS # (AUTO) 7.6 (2.1-6.9); NEUTROPHILS % 75.4 % (38.7-80.0); PLATELET COUNT 363 x10e3/uL (140-360); RED BLOOD COUNT 3.97 x10e6/uL (3.6-5.1); RED CELL DISTRIBUTION WIDTH 13.9 % (11.7-14.4)
--- NOTE | 2020-01-04 19:04 | Diagnostic Imaging Report ---
EXAM: CT Abdomen and Pelvis WITHOUT contrast INDICATION: r flank pain COMPARISON: None. TECHNIQUE: Abdomen and pelvis were scanned utilizing a multidetector helical scanner from the lung base to the pubic symphysis without administration of IV contrast. Absence of intravenous contrast decreases sensitivity for detection of focal lesions and vascular pathology. Coronal and sagittal reformations were obtained. Routine protocol was performed. IV CONTRAST: None ORAL CONTRAST: Water COMPLICATIONS: None RADIATION DOSE: Total DLP: 699.02 mGy-cm Estimated effective dose: (DLP x 0.015 x size factor) mSv CTDIvol has been reviewed. It is below the limits set by the Radiation Protocol Committee (RPC). FINDINGS: LINES and TUBES: None. LOWER THORAX: Unremarkable HEPATOBILIARY: No focal hepatic lesions. No biliary ductal dilation. GALLBLADDER: There are cholecystectomy clips. SPLEEN: No splenomegaly.. PANCREAS: The unenhanced pancreas shows no focal masses. There is no ductal dilatation. ADRENALS: The adrenal glands are unremarkable. KIDNEYS/URETERS: No hydronephrosis. No cystic or solid mass lesions. Bilateral Armani's plaques. No definite calculus. GI TRACT: Status post bariatric surgery. No abnormal distention, wall thickening, or evidence of bowel obstruction. PELVIC ORGANS/BLADDER: The bladder is underdistended limiting evaluation. LYMPH NODES: No lymphadenopathy. VESSELS: Vessels are incompletely evaluated due to lack of IV contrast. However no definite aneurysm seen. PERITONEUM / RETROPERITONEUM: No free air or fluid. BONES: Unremarkable. SOFT TISSUES: Unremarkable. IMPRESSION: Bilateral Armani's plaques. No definite calculus. No hydronephrosis. Signed by: Dilip Ness MD on 01/04/2020 7:01 PM
[2020-01-04 19:14] LABS: ALANINE AMINOTRANSFERASE 11 IU/L (0-55); ALBUMIN 4.4 g/dL (3.5-5.0); ALBUMIN/GLOBULIN RATIO 1.3 (0.8-2.0); ALKALINE PHOSPHATASE 99 IU/L (40-150); ANION GAP 16.7 mmol/L (8-16); BLOOD UREA NITROGEN 6 mg/dL (7-26); BUN/CREATININE RATIO 9 (6-25); CALCIUM 8.6 mg/dL (8.4-10.2); CARBON DIOXIDE 22 mmol/L (22-29); CHLORIDE 105 mmol/L (98-107); CREATININE, SERUM 0.69 mg/dL (0.57-1.11); EST GLOMERULAR FILTRATION RATE > 60 ML/MIN (60-); GLUCOSE 90 mg/dL (74-118); POTASSIUM 3.7 mmol/L (3.5-5.1); SODIUM 140 mmol/L (136-145)
[2020-01-04 20:02] VITALS: BP 108/74
== END 2020-01-04 20:45 | disposition home or self-care (01) ==
LOC: ER 17:30
DX: N12 Tubulo-interstitial nephritis, not specified as acute or chronic (principal); R30.0 Dysuria; R11.2 Nausea with vomiting, unspecified; M54.5 Low back pain; Z98.84 Bariatric surgery status
CPT/HCPCS: 36415; 74176; 80053; 81001; 81025; 85025; 87086; 87186; 99284; J1885; J7030

== ENCOUNTER 2020-03-05 17:54 | Emergency (ER) | payer OTHER ==
[~2020-03-05] VITALS: Ht 162.6 cm; Wt 78.0 kg
--- NOTE | 2020-03-05 18:02 | Emergency Department Note ---
History of Present Illnes History of Present Illness Chief Complaint: COVID PUI History of Present Illness This is a 29 year old female, with no significant past medical history, who presents with a four-day history of intermittent fever up to 102 degrees, body aches and fatigue. Patient states that her highest fever was 2 days ago, and her highest temp yesterday 101. She has had a low grade temp throughout the day today. She has only been taking Mucinex, though she does not have a cough or mucous production, and she has not taken any Tylenol or ibuprofen for the fever. She has a temp of 99.2 on arrival to the ED this evening, and she has not taken any antipyretics today. 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 Her boss sent her home this afternoon, due to her symptoms, though she did not have a fever at work. She denies any cough, nasal congestion, upper respiratory symptoms, shortness of breath, chest pain, nausea or vomiting. She also complains of some upper, mid-abdominal pain that has been intermittent for the past 2 days, that is described as "sharp," without N/V/D or constipation. NO sympmtoms of dyspepsia. Denies melena and hematochezia. She recieved her Flus shot last week. Historian: Patient Arrival Mode: Car Transport Nurse Required: No Onset (how long ago): day(s) (4) Location: generalized body Quality: aches Radiation: Reports non-radiation Severity: moderate Onset quality: gradual Duration (how long): day(s) (4) Timing of current episode: intermittent Progression: unchanged Chronicity: new Context: Denies recent illness, Denies trauma/injury, Denies new medications, Denies non-compliance w/ medications Relieving factors: none Exacerbating factors: none Associated symptoms: Reports headaches (mild), Reports malaise; Denies chest pain, Denies cough, Denies fever/chills, Denies nausea/vomiting, Denies rash, Denies shortness of breath, Denies weakness Treatments prior to arrival: none Risk factors: works in Housekeeping at [employer], where there are COVID patients Past Medical/Family History Physician Review I have reviewed the patient's past medical and family history. Any updates have been documented here. Past Medical History Recent Fever: Yes Clinical Suspicion of Infectio: Yes New/Unexplained Change in Ment: No Past Medical History: None Past Surgical History: Cholecysctectomy Other Surgery: GASTRIC SLEEVE - 06/2018. lost > 100#; Social History Smoking Cessation: Current every day smoker Counseling Performed: Yes Alcohol Use: None Any Illegal Drug Use: No TB Exposure/Symptoms: No Physically hurt or threatened: No Other Any Pre-Existing Lines (PICC,: No Is patient up to date on immun: Yes Review of Systems Review of Systems Constitutional: Reports chills, Reports fever EENTM: Denies blurred vision, Denies nose congestion, Denies throat pain Cardiovascular: Denies chest pain, Denies palpitations Respiratory: Denies cough, Denies pain with cough, Denies dyspnea Gastrointestinal: Reports abdominal pain (upper/mid abdominal pain, above the umbilicus); Denies constipation, Denies diarrhea, Denies nausea, Denies vomiting Genitourinary: Reports no symptoms Musculoskeletal: Denies back pain, Denies joint swelling, Denies neck pain Integumentary: Denies change in color, Denies rash Neurological: Reports headache (mild;); Denies paresthesia, Denies weakness Psychological: Reports no symptoms Endocrine: Reports no symptoms Hematological/Lymphatic: Reports no symptoms Review of other systems: All other systems negative Physical Exam Related Data Allergies: Coded Allergies: No Known Allergies (Unverified , 10/02/19) Vital signs reviewed: Yes Physical Exam CONSTITUTIONAL Constitutional: Present well-developed, Present well-nourished; Absent distressed, Absent ill appearing HENT HENT: Present normocephalic, Present atraumatic, Present oropharynx clear/moist, Present nose normal; Absent nasal congestion, Absent rhinorrhea, Absent oropharyngeal exudate, Absent tonsillar excudate, Absent erythema HENT L/R: Present left TM normal, Present right TM normal, Present left ext ear normal, Present right ext ear normal EYES Eyes: Reports PERRL, Reports conjunctivae normal NECK Neck: Present ROM normal; Absent cervical adenopathy PULMONARY Pulmonary: Present effort normal, Present breath sounds normal CARDIOVASCULAR Cardiovascular: Present regular rhythm, Present heart sounds normal, Present capillary refill normal, Present normal rate GASTROINTESTINAL Abdominal: Present soft, Present bowel sounds normal, Present tender (mild ttp, just above the umbilicus; NO RUQ ttp); Absent distension, Absent guarding, Absent rebound, Absent left CVA tenderness, Absent right CVA tenderness GENITOURINARY Genitourinary: Present exam deferred SKIN Skin: Present warm, Present dry; Absent rash MUSCULOSKELETAL Musculoskeletal: Present ROM normal; Absent tenderness, Absent swelling NEUROLOGICAL Neurological: Present alert, Present oriented x 3; Absent cranial nerve deficit PSYCHOLOGICAL Psychological: Present mood/affect normal, Present behavior normal Results Laboratory Laboratory CBC - nl, except for H/H = ; Metlac - normal, exletp for phos = 4.6; Liver - normal, including amylase; UA - negative except for moderate blood; UPT - negative; Influenza A/B - negative; COVID 19 nasal swab - pend; Lab results reviewed: Yes Assessment & Plan Medical Decision Making [facility] 19:40 - patient stepped out of her room, inquiring how much longer it is going to be, because "she is getting hungry." I reviewed patient's labs and urinalysis with her, and asked her about her abdominal pain. She states that "she feels like it is due to the fact that she is hungry, and hasn't eaten today. When I ask her about her abdominal pain, she states that she believes it is "because she hasn't eaten in number of hours." She does not desire any further evaluation of her abdomen, at this time. -Since Rapid Flu and other diagnostic testing is negative, explained to patient, that we will perform a Covid test on her, since she does work at the [employer] [facility] [employer] [employer], which places her at a higher risk of exposure. Also, explained to patient that we are not a testing center, and do not typically run any Covid tests, unless the patient is being admitted to the hospital. We will not be doing family testing. Patient was understanding the plan. - Recommend that you continue to drink plenty of fluids, especially water. At least 8, 16 ounce bottles per day, or more if your running a high fever. - For the fever, recommend extra strength Tylenol 500 mg2 tablets every 4 hours as needed for pain or fever. You may also take ibuprofen 200 mg2 tablets every 6 hours as needed for pain, body aches, or fever. - Recommend that you self quarantine, at least 14 days, and that your are without fever or symptoms for at least 5 days, before returning to work or being around other people. Continue practice social distancing. - Return to the ED, if your abdominal pain worsens, or if you develop chest pain or shortness of breath. Assessment & Plan Final Impression: (1) Viral syndrome (2) Fever (3) Suspected COVID-19 virus infection (4) Myalgia (5) Dyspepsia Depart Disposition: HOME, SELF-group home Meds Reported Medications Vit/Fe Fum/James/Fa ( 19 TABLET) 1 Each Tablet, PO DAILY 10/02/19 [Zantac] No Conflict Check, PO PRN 10/02/19 RAJEEV DIEGO MD Mar 05, 2020 18:02
[2020-03-05] MEDS ORDERED: FAMOTIDINE 20 MG/2 ML VIAL IV STA (18:57)
[2020-03-05] MEDS ORDERED: KETOROLAC TROMETHAMINE 30 MG/ML VIAL IV STA (19:49)
[2020-03-05] MEDS ORDERED: FAMOTIDINE 20 MG/2 ML VIAL IV ONE (19:51)
[2020-03-05] MEDS ORDERED: KETOROLAC TROMETHAMINE 30 MG/ML VIAL ONE (19:54)
--- OUTSIDE RECORDS SUMMARY | 2020-03-06 19:47 | XMS REPORT | Clinical Summary ---
Author Author [facility] Organization [facility] Address Unknown Phone Unavailable Care Team Providers Care Surg Nurse Name Role Phone Pcp, No PCP Unavailable Unknownmeds, Provider PCP Unavailable Allergies No Known [...] 05/18/2019 Emergency Emergency Medicine 05/18/2019 Travel after 03/05/2019 Family History Medical History Relation Name Comments Cancer Father Kidney disease Father Cancer Mother Relation Name Status Comments Father Mother Social History Date Tobacco Use Types Packs/Day Years Used Current Every Day Smoker Cigarettes Smokeless Tobacco: Never Used Tobacco Cessation: Ready to Quit: Yes; C ounseling Given: Yes Comments: 2-3 cigarettes Drinks/Week oz/Week Comments Alcohol Use No Alcohol Habits Answer Date Recorded How often do you have a drink containing alcohol? Never 12/18/2018 How many drinks containing alcohol do you have on No t asked a typical day when you are drinking? How often do you have six or more drinks on one Not asked occasion? Sex Assigned at Date Recorded Not on file Last Filed Vital Signs Reading Time Taken Comments Vital Sign 122/63 11/01/2019 7:12 PM CDT Blood Pressure 91 11/01/2019 7:12 PM CDT Pulse 37.2 C (98.9 F) 11/01/2019 7:12 PM CDT Temperature 22 11/01/2019 7:12 PM CDT Respiratory Rate 98% 11/01/2019 7:12 PM CDT Oxygen Saturation - - Inhaled Oxygen Concentration 77.1 kg (170 lb) 11/01/2019 7:12 PM CDT Weight 162.6 cm (5' 4") 11/01/2019 7:12 PM CDT Height 29.18 11/01/2019 7:12 PM CDT Body Mass Index Plan of Treatment Health Maintenance Due Date Last Done Comments PNEUMOCOCCAL VACCINE 0-64 1998 YRS (1 of 1 - PPSV23) LIPID PANEL 2012 CERVICAL CANCER SCREENING 2013 PAP ONLY (Age 21-65) INFLUENZA VACCINE (#1) 2020 Procedures Comments Procedure Name Priority Date/Time Associated Diag nosis SARS-COV2/RT-PCR ([facility] & Routine 11/07/2019 Expos ure to REF LABS) 2:03 PM CDT SARS-associated coronavirus ECG 12-LEAD Routine 11/01/2019 7:05 PM CDT ECG 12-LEAD Routine 11/01/2019 7:05 PM CDT Procedure Note - Interface, External Ris In - 11/04/2019 6:33 AM CDT Ventricula r Rate 86 BPM Atrial Rate 86 BPM P-R Interval 134 ms QRS Duration 78 ms Q-T Interval 354 ms QTC Calculatio n(Bazett) 423 ms P [place] 40 degrees R [place] 66 degrees T [place] 47 degrees Normal sinus rhythm Normal ECG No previous ECGs available SARS-COV2/RT-PCR ([facility] & Routine 10/25/2019 Expos ure to REF LABS) 3:47 PM CDT SARS-associated coronavirus US ABDOMEN LIMITED STAT 05/18/2019 8:01 PM BAR SUPERVISOR CBC W/PLT COUNT & AUTO STAT 05/18/2019 DIFFERENTIAL 7:00 PM BAR SUPERVISOR SCREEN, URINE STAT 05/18/2019 7:00 PM BAR SUPERVISOR URINALYSIS W/ MICROSCOPIC Routine 05/18/2019 7:00 PM BAR SUPERVISOR LIPASE STAT 05/18/2019 7:00 PM BAR SUPERVISOR HEPATIC FUNCTION PANEL STAT 05/18/2019 7:00 PM BAR SUPERVISOR BASIC METABOLIC PANEL (7) STAT 05/18/2019 7:00 PM BAR SUPERVISOR CBC W/PLT COUNT & AUTO STAT 05/18/2019 DIFFERENTIAL 7:00 PM BAR SUPERVISOR after 03/05/2019 Results * SARS-CoV2/RT-PCR ([facility] & Ref Labs) (11/07/2019 2:03 PM CDT) Only the most recent of 2 results within the time period is included. SARS-COV2/RT-PC Negative Not Detected, [facility] R Negative NON-INTERFACED REFERENCE LABS SARS-COV-2 CPL [facility] PERFORMING LAB NON-INTERFACED REFERENCE LABS Specimen Other - Nasopharyngeal wall structure (body structure) Performing Organization Address City/State/Zipcode Ph one Number [facility] NON-INTERFACED REFERENCE LABS * ECG 12 lead (11/01/2019 7:05 PM CDT) Specimen Narrative Performed At Ventricular Rate 86 BPM GE MUSE Atrial Rate 86 BPM P-R Interval 134 ms QRS Duration 78 ms Q-T Interval 354 ms QTC Calculation(Bazett) 423 ms P [place] 40 degrees R [place] 66 degrees T [place] 47 degrees Normal sinus rhythm Normal ECG No previous ECGs available Confirmed by MD FAIRBANKS YOCHAI ([id number] ) on 11/04/2019 6:21:10 PM Procedure Note Interface, External Ris In - 11/04/2019 6:21 PM CDT Ventricular Rate 86 BPM Atrial Rate 86 BPM P-R Interval 134 ms QRS Duration 78 ms Q-T Interval 354 ms QTC Calculation(Bazett) 423 ms P [place] 40 degrees R [place] 66 degrees T [place] 47 degrees Normal sinus rhythm Normal ECG No previous ECGs available Confirmed by MD FAIRBANKS YOCHAI ([id number]) on 11/04/2019 6:21:10 PM Performing Organization Address City/State/Zipcode Ph one Number [employer] * Dmailer abdomen limited (05/18/2019 8:01 PM BAR SUPERVISOR) Specimen Narrative Performed At FINAL REPORT [facility] Right upper quadrant abdominal ultrasou nd, 05/18/2019. [...] in diameter. The biliary tree is within nor mal limits with the common bile duct measuring [...] Report Verified Date/Time: 05/18/2019 21:05:42 Reading Location: [address] Consult Reading Room Procedure Note Interface, External Ris In - 05/18/2019 9:07 PM BAR SUPERVISOR FINAL REPORT Right upper quadrant abdominal ultrasound, [...] Report Verified Date/Time: 05/18/2019 21:05:42 Reading Location: [facility] Consult Reading Room Performing Organization Address City/State/Zipcode Ph one Number GE [facility]IS * CBC with platelet count + automated diff (05/18/2019 7:00 PM BAR SUPERVISOR) WBC 8.9 3.5 - 10.5 K/L [facility] RBC 3.87 (L) 3.93 - 5.22 M/L [facility] Hemoglobin 11.3 11.2 - 15.7 GM/DL [facility] Hematocrit 34.8 34.1 - 44.9 % [facility] MCV 89.9 79.4 - 94.8 fL [facility] MCH 29.2 25.6 - 32.2 pg [facility] MCHC 32.5 32.2 - 35.5 GM/DL [facility] RDW 13.5 11.7 - 14.4 % [facility] Platelets 317 150 - 450 K/CU MM [facility] MPV 10.4 9.0 - 12.3 fL [facility] % Neutros 61 % [facility] % Lymphs 29 % [facility] % Monos 7 % [facility] % Eos 2 % [facility] % Baso 1 % [facility] # Neutros 5.45 1.56 - 6.13 K/L [facility] # Lymphs 2.60 1.18 - 3.74 K/L [facility] # Monos 0.60 (H) 0.24 - 0.36 K/L [facility] # Eos 0.16 0.04 - 0.36 K/L [facility] # Baso 0.05 0.01 - 0.08 K/L [facility] Immature 0 0 - 1 % [facility] lative Specimen Blood Performing Organization Address City/[facility] Ph one Number [place] [phone] [place] * screen, urine (05/18/2019 7:00 PM BAR SUPERVISOR) Preg Test, Ur Negative [facility] Specimen Urine Performing Organization Address City/[facility] Ph one Number [address] [phone] [place] * Urinalysis w/Microscopic (05/18/2019 7:00 PM BAR SUPERVISOR) Color, UA Yellow [facility] Clarity, UA Clear [facility] Specific 1.025 1.005 - 1.030 [facility] [place], UA [facility] pH, UA 5.5 5.0 - 9.[address] [facility] Protein, UA Negative Negative [facility] Glucose, UA Negative Negative [facility] Ketones, UA 15 mg/dL (A) Negative [facility] Bilirubin, UA Negative Negative [facility] Blood, UA Negative Negative [facility] Nitrite, UA Negative Negative [facility] Leukocytes, UA Negative Negative [facility] Urobilinogen, 0.2 0.2 - 1.0 mg/dL [facility] RBC, UA 0 /HPF [facility] WBC, UA 0 /HPF [facility] Specimen Source [facility] Specimen Urine Performing Organization Address City/[facility] Ph one Number [facility] [address] [place] [phone] [place] * Lipase (05/18/2019 7:00 PM BAR SUPERVISOR) Lipase 26 8 - 78 U/L [facility] Specimen Blood Narrative Performed At [address] Administrator KAYLEE Carey [facility] Performing Organization Address City/[facility] Ph one Number [address] [phone] 0 [phone] [place] [address] * Liver Panel (05/18/2019 7:00 PM BAR SUPERVISOR) Protein, Total 7.1 6.0 - 8.3 gm/dL [facility] Albumin 4.1 3.5 - 5.0 g/dL [facility] Total Bilirubin 0.2 0.2 - 1.2 mg/dL [facility] Bilirubin, 0.1 0.1 - 0.5 mg/dL [facility] Alkaline 101 40 - 150 U/L [facility] AST 11 5 - 34 U/L [facility] ALT 9 6 - 55 U/L [facility] Specimen Blood Narrative Performed At [address] Administrator ID - PONCHO Carey [facility] Performing Organization Address City/[facility] Ph one Number [facility] [address] [phone] [place] [address] * Basic metabolic panel (Na, K+, Cl, CO2, Glu, Ca, BUN, Cr) (05/18/2019 7:00 PM BAR SUPERVISOR) Sodium 137 136 - 145 meq/L [facility] Potassium 4.0 3.5 - 5.1 meq/L [facility] Chloride 106 98 - 107 meq/L [facility] CO2 25 22 - 29 meq/L [facility] BUN 11 7 - 21 mg/dL [facility] Creatinine 0.63 0.57 - 1.25 mg/dL [facility] Glucose 82 70 - 105 mg/dL [facility] Calcium 8.3 (L) 8.4 - 10.2 mg/dL [facility] EGFR Comment: INSUFFICIENT CLINICAL [facility] DATA TO CALCULATE ESTIMATED [facility] GFR. [facility] Specimen Blood Narrative Performed At [address] Administrator [facility] Performing Organization Address City/[facility] Ph one Number [facility] [address] [address] [address] [phone] [place] [address] after 03/05/2019 Insurance Type Payer Benefit Subscriber ID Effective Phone Address Plan / Dates Group HMO/POS CIG[employer] - MGD CARE CIGNA [id number] 2019-P HMO/POS/OP resent EN ACCESS
--- OUTSIDE RECORDS SUMMARY | 2020-03-06 19:47 | XMS REPORT | Clinical Summary ---
Author Author [facility] Address Unknown Phone Unavailable Care Team Providers Care Cdl Truck Driver Name Role Phone Asked, No Pcp PCP Unavailable Allergies No Known Active Allergies Medications End Date Status Medication Sig [...] Surgery Kelly Esteves MD Wright, Young Joo, MACARIO 05/27/2019 Anesthesia General Surgery Event Sarah Cantu MD CHOLECYSTECTOMY, LAPAROSCOPIC 05/27/2019 Surgery General Surgery Austin Luis MD Martinez, Sylvia, MD Calculus of gallbladder with acute brandi cystitis without obstruction (Primary Dx) 05/26/2019 Hospital General Surgery - Encounter 05/29/2019 after 03/05/2019 Surgical History Surgery Date Site/Laterality Comments STOMACH SURGERY gastric sleeve SECTION CHOLECYSTECTOMY, 05/27/2019 Abdomen/N/A Procedure: CH OLECYSTECTOMY, LAPAROSCOPIC; LAPAROSCOPIC Surgeon: Sarah Cantu MD; Location: [facility]; Service: General; Laterality: N/A ; Medical History Medical History Date Comments Anemia Social History Date Tobacco Use Types Packs/Day Years Used Current Every Day Smoker Cigarettes 0.25 Smokeless Tobacco: Never Used Comments: 3 cigarrettes/ day Drinks/Week oz/Week Comments Alcohol Use 1 Glasses of wine 1.0 every 3 or 4 weeks Yes Sex Assigned at Date Recorded Not on file Last Filed Vital Signs Reading Time Taken Comments Vital Sign 118/66 06/13/2019 2:03 PM [employer]INKLING SYSTEM IRRIGATOR Blood Pressure 102 06/13/2019 2:03 PM [employer] IRRIGATOR Pulse 37.2 C (99 F) 06/13/2019 2:03 PM [employer]LING SYSTEM IRRIGATOR Temperature 18 05/29/2019 11:34 AM [employer] SYSTEM IRRIGATOR Respiratory Rate 99% 06/13/2019 2:03 PM [employer]INKLING SYSTEM IRRIGATOR Oxygen Saturation - - Inhaled Oxygen Concentration 78.9 kg (174 lb) 06/13/2019 2:03 PM SPRINKLING SYSTEM IRRIGATOR Weight 162.6 cm (5' 4") 06/13/2019 2:03 PM [employer]LING SYSTEM IRRIGATOR Height 29.87 06/13/2019 2:03 PM [employer] SYSTEM IRRIGATOR Body Mass Index Plan of Treatment Health Maintenance Due Date Last Done Comments CERVICAL CANCER SCREENING 2013 INFLUENZA VACCINE 12/01/2019 Procedures Comments Procedure Name Priority Date/Time Associated Diag nosis CBC HEMOGRAM Routine 05/29/2019 4:05 AM [employer]INKLING SYSTEM IRRIGATOR ESTIMATED GFR Routine 05/29/2019 4:00 AM [employer]LING SYSTEM IRRIGATOR PHOSPHORUS LEVEL Routine 05/29/2019 4:00 AM [employer]LING SYSTEM IRRIGATOR MAGNESIUM LEVEL Routine 05/29/2019 4:00 AM SPRINKLING SYSTEM IRRIGATOR BASIC METABOLIC PANEL Routine 05/29/2019 4:00 AM [employer]LING SYSTEM IRRIGATOR CBC HEMOGRAM STAT 05/28/2019 6:50 AM SPRINKLING SYSTEM IRRIGATOR ESTIMATED GFR STAT 05/28/2019 6:40 AM SPRINKLING SYSTEM IRRIGATOR BASIC METABOLIC PANEL STAT 05/28/2019 6:40 AM SPRINKLING SYSTEM IRRIGATOR WI AN ELECTIVE Routine 05/27/2019 ENDOTRACHEAL AIRWAY 9:27 AM SPRINKLING SYSTEM IRRIGATOR CHOLECYSTECTOMY, 05/27/2019 CHOLELITHIASIS LAPAROSCOPIC 9:01 AM SPRINKLING SYSTEM IRRIGATOR SURGICAL PATHOLOGY Routine 05/27/2019 REQUEST 8:30 AM SPRINKLING SYSTEM IRRIGATOR URINE CULTURE Routine 05/27/2019 3:14 AM [employer]INKLING SYSTEM IRRIGATOR HCG QUALITATIVE, URINE Routine 05/26/2019 SCREEN 11:30 PM SPRINKLING SYSTEM IRRIGATOR URINALYSIS SCREEN AND Routine 05/26/2019 MICROSCOPY, WITH REFLEX 11:30 PM SPRINKLING SYSTEM IRRIGATOR TO CULTURE ECG 12-LEAD STAT 05/26/2019 7:55 PM SPRINKLING SYSTEM IRRIGATOR US GALLBLADDER STAT 05/26/2019 6:26 PM SPRINKLING SYSTEM IRRIGATOR ESTIMATED GFR STAT 05/26/2019 5:25 PM SPRINKLING SYSTEM IRRIGATOR PARTIAL THROMBOPLASTIN STAT 05/26/2019 TIME (PTT) 5:25 PM SPRINKLING SYSTEM IRRIGATOR PROTHROMBIN TIME WITH INR STAT 05/26/2019 5:25 PM SPRINKLING SYSTEM IRRIGATOR TYPE AND SCREEN Routine 05/26/2019 5:25 PM SPRINKLING SYSTEM IRRIGATOR LIPASE LEVEL STAT 05/26/2019 5:25 PM SPRINKLING SYSTEM IRRIGATOR HEPATIC FUNCTION PANEL STAT 05/26/2019 5:25 PM SPRINKLING SYSTEM IRRIGATOR BASIC METABOLIC PANEL STAT 05/26/2019 5:25 PM SPRINKLING SYSTEM IRRIGATOR HC COMPLETE BLD COUNT STAT 05/26/2019 W/AUTO DIFF 5:25 PM SPRINKLING SYSTEM IRRIGATOR after 03/05/2019 Results * CBC hemogram (05/29/2019 4:05 AM SPRINKLING SYSTEM IRRIGATOR) Only the most recent of 2 results within the time period is included. WBC 8.09 4.50 - 11.00 k/uL [facility] RBC 3.41 (L) 4.20 - 5.50 m/uL [facility] HGB 9.9 (L) 12.0 - 16.0 g/dL [facility] HCT 31.4 (L) 37.0 - 47.0 % [facility] MCV 92.1 82.0 - 100.0 fL [facility] MCH 29.0 27.0 - 34.0 pg [facility] MCHC 31.5 31.0 - 37.0 g/dL [facility] RDW - SD 48.3 37.0 - 55.0 fL [facility] MPV 11.5 8.8 - 13.2 fL [facility] Platelet count 287 150 - 400 k/uL [facility] Nucleated RBC 0.00 /100 WBC [facility] Specimen Blood Performing Organization Address City/State/ZIP Code P channing Number [facility] DEPARTMENT OF [address] [place] [address] PATHOLOGY AND GENOMIC MEDICINE [address] * Estimated GFR (05/29/2019 4:00 AM [employer]ING SYSTEM IRRIGATOR) Only the most recent of 3 results within the time period is included. Pathologist [facility] Estimated GFR >=90 mL/min/1.73 m2 [facility] Comment: [facility] Interpretation G1 >=90 Normal or high G2 [...] 2014. Specimen Plasma specimen Performing Organization Address City/State/ZIP Code P channing Number [facility] [place] [address] PATHOLOGY AND GENOMIC MEDICINE [address] * Phosphorus level (05/29/2019 4:00 AM SPRINKLING SYSTEM IRRIGATOR) [facility] Phosphorus 4.0 2.4 - 4.5 mg/dL [facility] Specimen Plasma specimen Performing Organization Address City/[facility] [place] [address] PATHOLOGY AND [facility] MEDICINE [address] * Magnesium level (05/29/2019 4:00 AM SPRINKLING SYSTEM IRRIGATOR) [facility] Magnesium 2.0 1.6 - 2.6 mg/dL [facility] Specimen Plasma specimen Performing Organization Address City/[facility] P channing Number [facility] [place] [address] PATHOLOGY AND [facility] MEDICINE [address] * Basic metabolic panel (05/29/2019 4:00 AM [employer]ING SYSTEM IRRIGATOR) Only the most recent of 3 results within the time period is included. [facility] Sodium 141 135 - 148 mEq/L [facility] Potassium 4.0 3.5 - 5.0 mEq/L [facility] Chloride 106 98 - 112 mEq/L [facility] CO2 25 24 - 31 mEq/L [facility] Anion gap 10@ANIO 7 - 15 mEq/L [facility] BUN 5 (L) 6 - 20 mg/dL [facility] Creatinine 0.57 0.50 - 0.90 mg/dL [facility] Glucose 80 65 - 99 mg/dL [facility] Calcium 8.4 8.3 - 10.2 mg/dL [facility] Specimen Plasma specimen Performing Organization Address City/[facility]/ZIP Code P channing Number [facility] DEPARTMENT OF [address] [place] [address] PATHOLOGY AND GENOMIC MEDICINE [address] * Airway (05/27/2019 9:27 AM [employer]ING SYSTEM IRRIGATOR) Narrative Performed At Servando Rivera CRNA 05/27/2019 9:28 AM Airway Performed by: Servando Rivera CRNA Authorized by: Kelly Esteves MD Location: OR Urgency: Elective Difficult Airway: No Anesthesiologist: Kelly Esteves MD Resident/COLLATING MACHINE OPERATOR/AA: Servando Rivera CRNA Performed by: resident/COLLATING MACHINE OPERATOR/AA Preoxygenated with 100% O2: Yes C-spine [...] * Surgical pathology request (05/27/2019 8:30 AM [employer]LING SYSTEM IRRIGATOR) [facility] DEPARTMENT OF PATHOLOGY AND GENOMIC MEDICINE Surgical See link below for PDF Lab [facility] DEPART MENT pathology Report OF PATHOLOGY report AND GENOMIC MEDICINE Result status This is Final Report for [facility] DEPARTME NT [id number] OF PATHOLOGY AND GENOMIC MEDICINE Specimen Performing Organization Address [facility] Code P channing Number [facility] DEPARTMENT [address] [address] PATHOLOGY AND GENOMIC MEDICINE * Urine culture (05/27/2019 3:14 AM SPRINKLING SYSTEM IRRIGATOR) Urine culture Escherichia coli JUAN LUIS isolate >10-5 cfu/ml [facility] HOSPITAL characteristics of this assay on this isolate were validated by the Microbiology Laboratory at [facility]. This source has not been approved by [...] mcg/mL: Susceptible Escherichia coli Performing Organization Address City/State/ZIP Code P channing Number [facility] DEPARTMENT OF [address] [place], [place] [id number] PATHOLOGY [place] [address] HOSPITAL * Urinalysis screen and microscopy, with reflex to culture (05/26/2019 11:30 PM SPRINKLING SYSTEM IRRIGATOR) [facility] Specimen site Random void [facility] Color, UA Dark Yellow [facility] Appearance, UA Cloudy [facility] Specific 1.017 1.001 - 1.035 [facility]F gravity, [facility] pH, UA 5.0 5.0 - 8.5 [facility] Protein, UA Negative Negative [facility] Glucose, UA Negative Negative [facility] Ketones, UA 1+ (A) Negative [facility] Bilirubin, UA Negative Negative [facility] Blood, UA Moderate (A) Negative [facility] Nitrite, UA Negative Negative [facility] Urobilinogen, 4.0 (A) <2.0 [facility] Leukocyte Negative Negative [facility] esterase, [facility] Epithelial 2 /HPF [facility] cells, [facility] WBC, UA <1 0 - 4 /HPF [facility] RBC, UA <1 0 - 5 /HPF [facility] Bacteria, UA Many (A) None seen [facility] Yeast, UA Few (A) [facility] Yeast with None seen [facility]phae[facility] Amorphous Few [facility] crystals [facility] Specimen Urine Performing Organization Address City/[facility]/ZIP Code P channing Number [facility] [place] [address] PATHOLOGY AND GENOMIC MEDICINE [address] * hCG qualitative, urine screen (05/26/2019 11:30 PM SPRINKLING SYSTEM IRRIGATOR) [facility] hCG NegativeComment: Sensitivity [facility]AREF qualitative, of HCG test: 25 mIU/mL [facility] Specimen Urine Performing Organization Address City/[facility] [place] [address] PATHOLOGY AND GENOMIC MEDICINE [address] * ECG 12 lead (05/26/2019 7:55 PM SPRINKLING SYSTEM IRRIGATOR) [facility] Ventricular 69 [facility] rate Atrial rate 69 [facility] WI interval 150 [facility] QRSD interval 84 [facility] QT interval 412 [facility] QTC interval 441 [facility] P axis 1 56 [facility] QRS axis 1 71 [facility] T wave axis 53 [facility] EKG impression Normal sinus rhythm with sinus [facility] MU SE arrhythmia-Normal ECG-No previous ECGs available- Specimen Narrative Performed At This result has an attachment that is n ot available. Performing Organization Address City/[facility]/ZIP Code P channing Number [facility] MUSE [address] [place] [phone] * US Gallbladder (05/26/2019 6:26 PM SPRINKLING SYSTEM IRRIGATOR) Specimen Narrative Performed At EXAMINATION: US GALLBLADDER RADIANT CLINICAL HISTORY:Cholelithiasis COMPARISON: None. IMPRESSION: 1. Gallbladder: There are gallstones. T he gallbladder is mildly distended. Wall thickening is noted. Findings can be se en with acute cholecystitis. 2. Gallbladder Wall: Normal 3. Pericholecystic Fluid: No pericholec ystic fluid. 4. CBD: The common bile duct is within normal limits.. The duct measures 5-6 mm. 5. Other Findings: None [facility]-[id number] Procedure Note Interface, Radiology Results Incoming - 05/26/2019 6:44 PM SPRINKLING SYSTEM IRRIGATOR EXAMINATION: US GALLBLADDER CLINICAL HISTORY:Cholelithiasis COMPARISON: None. IMPRESSION: 1. Gallbladder: There are gallstones. Th e gallbladder is mildly distended. Wall thickening is noted. Findings can be seen with acute cholecystitis. 2. Gallbladder Wall: Normal 3. Pericholecystic Fluid: No pericholecy stic fluid. 4. CBD: The common bile duct is within n ormal limits.. The duct measures 5-6 mm. 5. Other Findings: None [facility]-[id number] Performing Organization Address [facility] Code P channing Number [facility] [address] [place] [phone] * Partial thromboplastin time, activated (05/26/2019 5:25 PM SPRINKLING SYSTEM IRRIGATOR) PTT 28.2 23.0 - 36.0 sec [facility]ISH[facility]AREF Comment: [facility] PTT therapeutic range for HOSPITAL unfractionated heparin is 61.0-112.0 seconds which corresponds to Anti-Xa 0.3-0.7 U/ml. Specimen Blood Performing Organization Address City/State/ZIP Code P channing Number [facility] DEPARTMENT OF [address] [place] [id number] PATHOLOGY AND GENOMIC MEDICINE [facility] [address] [place] [address] HOSPITAL * Prothrombin time with INR (05/26/2019 5:25 PM SPRINKLING SYSTEM IRRIGATOR) Prothrombin 14.1 11.5 - 14.5 sec [facility] INR 1.1 SHISHMAREF Comment: [facility] International Normalized HOSPITAL Ratio (INR) is a therapeutic monitoring tool for patients who are stable on oral anticoagulant therapy. An INR of 2.0-3.0 is suggested for deep vein thrombosis/pulmonary embolism. Specimen Blood Performing Organization Address [facility] P channing Number [facility] [place] [address] PATHOLOGY AND GENOMIC MEDICINE [address] * CBC with platelet and differential (05/26/2019 5:25 PM SPRINKLING SYSTEM IRRIGATOR) WBC 10.98 4.50 - 11.00 k/uL [facility] RBC 4.04 (L) 4.20 - 5.50 m/uL [facility] HGB 11.6 (L) 12.0 - 16.0 g/dL [facility] HCT 37.2 37.0 - 47.0 % [facility] MCV 92.1 82.0 - 100.0 fL [facility] MCH 28.7 27.0 - 34.0 pg [facility] MCHC 31.2 31.0 - 37.0 g/dL [facility] RDW - SD 45.9 37.0 - 55.0 fL [facility] MPV 11.2 8.8 - 13.2 fL [facility] Platelet count 367 150 - 400 k/uL [facility] Nucleated RBC 0.00 /100 WBC [facility] Neutrophils 58.7 39.0 - 69.0 % [facility] Lymphocytes 32.7 25.0 - 45.0 % [facility] Monocytes 5.9 0.0 - 10.0 % [facility] Eosinophils 1.7 0.0 - 5.0 % [facility] Basophils 0.5 0.0 - 1.0 % [facility] Immature 0.5Comment: "Immature 0.0 - 1.0 % [facility]ISH[facility]AREF granulocytes granulocytes" (promyelocytes, METHOD IST myelocytes, metamyelocytes) [facility] Specimen Blood Performing Organization Address [facility] P channing Number [facility] [place] [address] PATHOLOGY AND GENOMIC MEDICINE [address] * Type and screen (05/26/2019 5:25 PM SPRINKLING SYSTEM IRRIGATOR) ABO grouping O [facility] Rh type POS [facility] Antibody screen NEG SHISHMAREF (gel) [facility] Specimen Blood Performing Organization Address [facility] P channing Number [facility] DEPARTMENT OF [address] [place] [address] PATHOLOGY AND [facility] MEDICINE [address] * Lipase level (05/26/2019 5:25 PM SPRINKLING SYSTEM IRRIGATOR) Lipase 26 13 - 60 U/L [facility] Specimen Plasma specimen Performing Organization Address City/[facility] P channing Number [facility] [place] [address] [address] * Hepatic function panel (05/26/2019 5:25 PM SPRINKLING SYSTEM IRRIGATOR) Albumin 4.2 3.5 - 5.0 g/dL [facility] Total bilirubin 0.3 0.0 - 1.2 mg/dL [facility] Bilirubin <0.2 0.0 - 0.3 mg/dL [facility] direct [facility] Alkaline 112 (H) 35 - 104 U/L [facility] phosphatase [facility] Protein 7.8 6.3 - 8.3 g/dL [facility] Comment: [facility] Wvqboqz3429.6-7.0 g/dL HOSPITAL 1 peph7729.4-7.6 g/dL 7 months-7frse930.1-7.3 g/dL 1-2 .6-7.5 g/dL >3 oemgl924.0-8.0 g/dL [id number] g/dL ALT 24 5 - 50 U/L [facility] AST 53 (H) 10 - 35 U/L [facility] Specimen Plasma specimen Performing Organization Address City/[facility]/ZIP [facility] P channing Number [facility] [place] [address] PATHOLOGY [place] [address] HOSPITAL after 03/05/2019 Insurance Type Payer Benefit Subscriber ID Effective Phone Address Plan / Dates Group HMO CIGNA CIGNA OPEN [id number] 2019-P ACCESS/NET resent WORK Advance Directives For more information, please contact: [phone] Patient Rigging Man Explanation Type Date Recorded Advance Directives, Living Will and Medical Power of Electric Powerline Examiner Advance Directives, Living Will and Medical Power of Electric Powerline Examiner
--- OUTSIDE RECORDS SUMMARY | 2020-03-06 19:48 | XMS REPORT | Continuity of Care Document ---
Author Author [facility] t Organization [facility] Address 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 Name Role Phone MD ROCIO PATTERSONAK PCP HANANE SOUZA Attphys Unavailable Alhaji KNOWLES, Kenia Sanon Attphys [phone] Miguel [employer], M Kadi Attphys Toby KNOWLES, Reny Avila Attphys Pepe KNOWLES, Sarah Attphys Danielito KNOWLES, Kelly Attphys Dalton Rivera CRNA Attphys Stefanie KNOWLES, Kris Rodriguez Attphys KRIS WATTS Attphys Unavailable Fransisco CAMACHO Attphys Unavailable Payers Payer Name Policy Type Policy Number Effective Date Expiration Date Emely arango Tyron o [id number] 2019 00:00:00 [facility] CIGNA - MGD CARECIGNA HMO/POS/OPEN [id number] 2019 -PresentHMO/POS [id number] 2019 00:00:00 [facility] CIGNACIGNA OPEN ACCESS/[id number] 2019-PresentHMO [id number] 2019 00:00:00 Ray Manley Problems Condition Name Condition Details Condition Category Status Onset Date Resolution Date Last Treatment Date Treating Clinician Comments Source Calculus of gallbladder with acute cholecystitis witho ut obstruction Calculus of gallbladder with acute cholecystitis without obstruction Disease Act ceasar 2019-05-26 00:00:00 Ray Manley Needle stick injury Problem Active [facility] Allergies, Adverse Reactions, Alerts This patient has no known allergies or adverse reactions. Family History Family Member Diagnosis Comments Start Date Stop Date Source Natural father Cancer [facility] Natural father Kidney disease [facility] Natural mother Cancer [facility] Social History Social Habit Start Date Stop Date Quantity Comments Source History of tobacco use Cigarette Smoker [facility] History SDOH Alcohol Std Drinks [facility] History SDOH Alcohol Binge [facility] Sex Assigned At [facility] Tobacco use and exposure 2019-11-01 00:00:00 2019-11-01 00:00:00 Neve r used [facility] Alcohol intake 2019-11-01 00:00:00 2019-11-01 00:00:00 Current non-drinker of alcohol (finding) [facility] Cigarettes smoked current (pack per day) - Reported 00:00:00 2019-06-12 00:00:00 Ray Manley Alcohol Comment 2019-05-26 00:00:00 2019-05-26 00:00:00 every 3 or 4 weeks Ray Manley Tobacco Comment 2019-05-18 00:00:00 2019-05-18 00:00:00 2-3 cigarette s [facility] History SDOH Alcohol Frequency 2018-12-18 00:00:00 2018-12-18 00:00:0 0 1 [facility] Smoking Status Start Date Stop Date Source Current every day smoker 2019-11-01 00:00:00 [facility] Medications Ordered Medication Name Filled Medication Name [...] QD Take 1 capsule by mouth daily. [facility] esomeprazole (NEXIUM) 40 MG capsule 2019-05-18 00:00:0 0 2020-05-17 23:59:00 No 40mg QD Take 1 capsule (40 mg total) by mouth da irving. [facility] acetaminophen-codeine (TYLENOL #3) 300-30 mg per tablet 2019-05-18 00:00:00 2019-05-28 23:59:00 No 1{tbl} Take 1-2 tablets by mouth every 6 (six) hours as needed for Pain for up to 10 days. Max Daily Amount: 8 tablets [facility] ondansetron (ZOFRAN) 4 MG tablet 2019-05-18 00:00:00 2019-05 23:59:00 No 4mg Take 1 tablet (4 mg total) by mouth every 6 (si x) hours for 7 days. [facility] ondansetron (ZOFRAN) 4 MG tablet 2018-12-18 00:00:00 2019-05 00:00:00 No 4mg Take 1 tablet (4 mg total) by mouth 3 (three) times daily as needed for Nausea for up to 10 doses. [facility] Vit/Fe Fum/James/Fa ( 19 Tablet) 1 Eac h TABLET Vit/Fe Fum/James/Fa ( 19 Tablet) 1 Each TABLET Yes Daily [facility] Zantac Zantac Yes As Needed [facility] Vital Signs Vital Name Observation Time Observation Value Comments Source Weight 2020-01-04 17:01:00 172 [lb_av] [facility] BMI (Body Mass Index) 2020-01-04 17:01:00 29.5 kg/m2 [facility] Weight 2019-12-08 00:50:00 172 [lb_av] [facility] BMI (Body Mass Index) 2019-12-08 00:50:00 29.5 kg/m2 [facility] Systolic blood pressure 2019-11-01 19:12:00 122 mm[Hg] [facility] Diastolic blood pressure 2019-11-01 19:12:00 63 mm[Hg] [facility] Heart rate 2019-11-01 19:12:00 91 /min [facility] Body temperature 2019-11-01 19:12:00 37.17 Kathy [facility] Respiratory rate 2019-11-01 19:12:00 22 /min [facility] Body height 2019-11-01 19:12:00 162.6 cm [facility] Body weight 2019-11-01 19:12:00 77.111 kg [facility] BMI 2019-11-01 19:12:00 29.18 kg/m2 [facility] Oxygen saturation in Arterial blood by Pulse oximetry 10-31 19:12:00 98 /min [facility] Body Temperature 2019-10-05 12:12:00 97.8 [degF] [facility] Systolic blood pressure 2019-06-13 14:03:00 118 mm[Hg] [facility] Diastolic blood pressure 2019-06-13 14:03:00 66 mm[Hg] [facility] Heart rate 2019-06-13 14:03:00 102 /min [facility] Body temperature 2019-06-13 14:03:00 37.22 Kathy [facility] Body height 2019-06-13 14:03:00 162.6 cm [facility] Body weight 2019-06-13 14:03:00 78.926 kg [facility] BMI 2019-06-13 14:03:00 29.87 kg/m2 [facility] Oxygen saturation in Arterial blood by Pulse oximetry 06-13 14:03:00 99 /min [facility] Respiratory rate 2019-05-29 11:34:20 18 /min [facility] Procedures Procedure Date / Time Performed Performing Clinician [facility] e CT of abdomen and pelvis without contrast 2020-01-04 00:00:00 [facility] SARS-COV2/RT-PCR ([facility]) 2019-11-07 14:03:18 Saroj Mcleod [facility] ECG 12-LEAD 2019-11-01 19:05:45 Unknown, Hl7 Doctor [facility] SARS-COV2/RT-PCR ([facility]) 2019-10-25 15:47:55 Saroj Mcleod [facility] EGD BIOPSY SINGLE/MULTIPLE 2019-10-05 00:00:[address] [facility] COLONOSCOPY AND BIOPSY 2019-10-05 00:00:00 [facility] CBC HEMOGRAM 2019-05-29 04:05:00 Dennis Gonsalez [facility] BASIC METABOLIC PANEL 2019-05-29 04:00:00 Dennis Gonsalez [facility] MAGNESIUM LEVEL 2019-05-29 04:00:00 Dennis Gonsalez [facility]ist PHOSPHORUS LEVEL 2019-05-29 04:00:00 Dennis Gonsalez Met [facility] ESTIMATED GFR 2019-05-29 04:00:00 Sarah Cantu [facility] CBC HEMOGRAM 2019-05-28 06:50:00 Dennis Gonsalez [facility]ist BASIC METABOLIC PANEL 2019-05-28 06:40:00 Dennis Gonsalez [facility] ESTIMATED GFR 2019-05-28 06:40:00 Sarah Cantu Met hodist [place] AN ELECTIVE ENDOTRACHEAL AIRWAY 2019-05-27 09:27:44 Moriah Rivera CHOLECYSTECTOMY, LAPAROSCOPIC 2019-05-27 09:01:00 Nina Cantu SURGICAL PATHOLOGY REQUEST 2019-05-27 08:30:00 Sarah Cantu URINE CULTURE 2019-05-27 03:14:00 Austin Luis URINALYSIS SCREEN AND MICROSCOPY, WITH REFLEX TO CULTURE 23:30:00 Austin Luis HCG QUALITATIVE, URINE SCREEN 2019-05-26 23:30:00 Zhanna Francois ECG 12-LEAD 2019-05-26 19:55:57 Kareen Cox [facility] US GALLBLADDER 2019-05-26 18:26:00 Kareen Cox [facility] HC COMPLETE BLD COUNT W/AUTO DIFF [...] US ABDOMEN LIMITED 2019-05-18 20:01:00 Michael Watts [facility] BASIC METABOLIC PANEL (7) 2019-05-18 19:00:00 Michael Watts [facility] HEPATIC FUNCTION PANEL 2019-05-18 19:00:00 Michael Watts [facility] LIPASE 2019-05-18 19:00:00 Michael Watts [facility] URINALYSIS W/ MICROSCOPIC 2019-05-18 19:00:00 Michael Watts [facility] SCREEN, URINE 2019-05-18 19:00:00 Michael Watts [facility] CBC W/PLT COUNT & AUTO DIFFERENTIAL 2019-05-18 19:00[facility] Planned Activity Planned Date Details Comments Source Future Scheduled Test 2020-01-01 00:00:00 INFLUENZA VACCINE (#1) [code = INFLUENZA VACCINE (#1)] [facility] Future Scheduled Test 2019-12-01 00:00:00 INFLUENZA VACCINE [code = INFLUENZA VACCINE] [facility] Future Scheduled Test 2013 00:00:00 Screening for nora gnant neoplasm of cervix (procedure) [code = 525179398] [facility] Future Scheduled Test 2013 00:00:00 Screening for nora gnant neoplasm of cervix (procedure) [code = 420675393] [facility] Future Scheduled Test 2012 00:00:00 Lipid panel (proce dure) [code = 88521836] [facility] r Future Scheduled Test 1998 00:00:00 PNEUMOCOCCAL VACCI NE 0-64 YRS (1 of 1 - PPSV23) [code = PNEUMOCOCCAL VACCINE 0-64 YRS (1 of - PPSV23)] [facility] Instructions Urinary Tract Infection - Women [facility] Encounters Start Date/Time End Date/Time Encounter Type Admission Type [facility] Facility Care Department Encounter ID Source 2020-01-04 17:30:00 2020-01-04 20:45:00 Departed Emergency Room 1 HANANE SOUZA [facility] [id number] [facility] 2019-12-08 00:49:00 2019-12-08 01:10:00 Departed Emergency Room [facility] [id number] [facility] dical [place] 2019-10-05 08:50:00 2019-10-05 08:50:00 Registered Surgical Day Care [facility] [id number] [facility] Results Test Description Test Time Test Comments Results Result Comments Source CT ABDOMEN/PELVIS WO 2020-01-04 18:52:00 [facility] [address] [place] [address] Patient Name: MONICA RAMIREZ MR #: [id number] : 1990 [facility] 29[id number] Req #: [id number] Adm Physician: Ordered by: HANANE SOUZA DO Report #: [id number] Location: ER Room/Bed: Procedure: [id number] CT/CT ABDOMEN/PELVIS WO Exam Date: 01/04/20 Exam Time: 1817 REPORT STATUS: Signed EXAM: CT Abdomen and Pelvis WITHOUT contrast INDICATION: r flank pain COMPARISON: None. TECHNIQUE: Abdomen and pelvis were scanned utilizing a multidetector helical scanner from the lung base to the pubic symphysis without administration of IV contrast. Absen ce of intravenous contrast decreases sensitivity for detection of focal lesions and vascular pathology. Coronal and sagittal reformations were obtained. Routine protocol was performed. IV CONTRAST: None ORAL CONTRAST: Water COMPLICATIONS: None RADIATION DOSE: Total DLP: 699.02 mGy-cm Estimated effective dose: (DLP x 0.015 x size factor) mSv CTDIvol has been reviewed. It is below the limits set by the Radiation Protocol Committee (RPC). FINDINGS: LINES and TUBES: None. LOWER THORAX: Unremarkable HEPATOBILIARY: No focal hepatic lesions. No biliary ductal dilation. GALLBLADDER: There are cholecystectomy clips. SPLEEN: No splenomegaly.. PANCREAS: The unenhanced pancreas shows no focal masses. There is no ductal dilatation. ADRENALS: The adrenal glands are unremarkable. KIDNEYS/URETERS: No hydronephrosis. No cystic or solid mass lesions. Bilateral Armani's plaques. No definite calculus. GI TRACT: Status post bariatric surgery. No abnormal distention, wall thickening, or evidence of bowel obstruction. PELVIC ORGANS/BLADDER: The bladder is underdistended limiting evaluation. LYMPH NODES: No lymphadenopathy. VESSELS: Vessels are incompletely evaluated due to lack of IV contrast. However no definite aneurysm seen. PERITONEUM / RETROPERITONEUM: No free air or fluid. BONES: Unremarkable. SOFT TISSUES: Unremarkable. IMPRESSION: Bilateral Armani's plaques. No definite calculus. No hydronephrosis. Signed by: Dilip Callejas MD on 01/04/2020 7:01 PM Dictated By: DILIP CALLEJAS MD 00 Transcribed By: MALCOM on 01/04/201900 COPY TO: HANANE SOUZA DO Blood leukocytes automated count (number/volume) 2020-01-04 18:44:00 Test Item White Blood Count (test code = 6690-2) 10.03 4.8-10.8 [facility] automated count (number/volume)2020-01-04 18:44:00* Test Item Value Reference Range Interpretation Comments Red Blood Count (test code = 789-8) 3.97 3.6-5.1 [facility] hemoglobin measurement (moles/volume)2020-01-04 18:44:00* Test Item Value Reference Range Interpretation Comments Hemoglobin (test code = 99663-9) 11.0 12.0-16.0 [facility] HospitalAutomated blood hematocrit (volume fraction)2020-01-04 18:44:00* Test Item Value Reference Range Interpretation Comments Hematocrit (test code = 4544-3) 34.9 34.2-44.1 [facility] HospitalAutomated erythrocyte mean corpuscular [id number] 18:44:00* Test Item Value Reference Range Interpretation Comments Mean Corpuscular Volume (test code = 787-2) 87.9 81-99 [facility] HospitalAutom[facility] erythrocyte mean corpuscular hemoglobin (mass per erythrocyte)2020-01-04 18:44:00* Test Item Value Reference Range Interpretation Comments Mean Corpuscular Hemoglobin (test code = 785-6) 27.7 28-32 [facility] HospitalAutomated erythrocyte mean corpuscular hemoglobin concentration measurement (mass/volume)2020-01-04 18:44:00* Test Item Value Reference Range Interpretation Comments Mean Corpuscular Hemoglobin Concent (test code = 786-4) 31.5 31-35 [facility] HospitalRDW NuvYp-[id number] 18:44:00* Test Item Value Reference Range Interpretation Comments Red Cell Distribution Width (test code = 77003-2) 13.9 11.7 -14.4 [facility] HospitalAutom[facility] blood platelet count (count/volume)2020-01-04 18:44:00* Test Item Value Reference Range Interpretation Comments Platelet Count (test code = 777-3) 363 140-360 [facility] HospitalAutomated blood segmented neutrophil count as percentage of total vmabwlufzj3789-64-67 18:44:00* Test Item Value Reference Range Interpretation Comments Neutrophils (%) (Auto) (test code = 69933-3) 75.4 38.7-80.0 [facility] HospitalAutomated blood lymphocyte count as percentage ot total uzfqllmeah8415-16-43 18:44:00* Test Item Value Reference Range Interpretation Comments Lymphocytes (%) (Auto) (test code = 736-9) 15.7 18.0-39.1 [facility] HospitalAutomated blood monocyte count as percentage of total absagbtwun6685-90-13 18:44:00* Test Item Value Reference Range Interpretation Comments Monocytes (%) (Auto) (test code = 5905-5) 7.9 4.4-11.3 [facility] HospitalAutom[facility] blood eosinophil count as percentage of total zxsgabcfvx6842-33-11 18:44:00* Test Item Value Reference Range Interpretation Comments Eosinophils (%) (Auto) (test code = 713-8) 0.1 0.0-6.0 [facility] HospitalAutomated blood basophil count as percentage of total gspxtgmczl3990-66-53 18:44:00* Test Item Value Reference Range Interpretation Comments Basophils (%) (Auto) (test code = 706-2) 0.7 0.0-1.0 [facility] HospitalFluoroscopic procedure less than one hour yhnbkzzw5362-32-98 18:44:00* Test Item Value Reference Range Interpretation Comments IM GRANULOCYTES % (test code = IM GRANULOCYTES %) 0.2 0.0- 1.0 [facility] HospitalAutomated blood neutrophil count 2020-01-04 18:44:00* Test Item Value Reference Range Interpretation Comments Neutrophils # (Auto) (test code = 751-8) 7.6 2.1-6.9 [facility] Hospital[facility] lymphocytes count (number/volume) 2020-01-04 18:44:00* Test Item Value Reference Range Interpretation Comments Lymphocytes # (Auto) (test code = 10862-9) 1.6 1.0-3.2 [facility] HospitalBlood monocytes automated count (number/volume)2020-01-04 18:44:00* Test Item Value Reference Range Interpretation Comments Monocytes # (Auto) (test code = 742-7) 0.8 0.2-0.8 [facility] HospitalAutomated blood eosinophil count 2020-01-04 18:44:00* Test Item Value Reference Range Interpretation Comments Eosinophils # (Auto) (test code = 711-2) 0.0 0.0-0.4 [facility] HospitalAutomated blood basophil count (count/volume)2020-01-04 18:44:00* Test Item Value Reference Range Interpretation Comments Basophils # (Auto) (test code = 704-7) 0.1 0.0-0.1 [facility] HospitalFluoroscopic procedure less than one hour rruzwzek6719-88-80 18:44:00* Test Item Value Reference Range Interpretation Comments Absolute Immature Granulocyte (auto (faustino t code = Absolute Immature Granulocyte (auto) 0.02 0-0.1 [facility] sodium measurement (moles/volume)2020-01-04 18:44:00* Test Item Value Reference Range Interpretation Comments Sodium Level (test code = 2951-2) 140 136-145 [facility] potassium measurement (moles/volume)2020-01-04 18:44:00* Test Item Value Reference Range Interpretation Comments Potassium Level (test code = 2823-3) 3.7 3.5-5.1 [facility] chloride measurement (moles/volume)2020-01-04 18:44:00* Test Item Value Reference Range Interpretation Comments Chloride Level (test code = 2075-0) 105 98-107 [facility] plasma carbon dioxide, total measurement (moles/volume)2020-01-04 18:44:00* Test Item Value Reference Range Interpretation Comments Carbon Dioxide Level (test code = 2028-9) 22 22-29 [facility] plasma anion umx1376-94-77 18:44:00* Test Item Value Reference Range Interpretation Comments Anion Gap (test code = 10684-2) 16.7 8-16 [facility] urea nitrogen measurement (mass/volume)2020-01-04 18:44:00* Test Item Value Reference Range Interpretation Comments Blood Urea Nitrogen (test code = 3094-0) 6 7-26 [facility] creatinine measurement (mass/volume)2020-01-04 18:44:00* Test Item Value Reference Range Interpretation Comments Creatinine (test code = 2160-0) 0.69 0.57-1.11 [facility] plasma urea nitrogen/creatinine mass wzvra0370-24-99 18:44:00* Test Item Value Reference Range Interpretation Comments BUN/Creatinine Ratio (test code = 3097-3) 9 6-25 [facility] HospitalEstimated glomerular filtration rate (GFR) zomoezlkzaqfq6340-80-84 18:44:00* Test Item Value Reference Range Interpretation Comments Estimat Glomerular Filtration Rate (test code = 086363313) > 60 >60 Ranges were taken from the National Kidney Disease Education Program and the [facility] Kidney Foundation literature.Reference ranges:60 or greater: Hiiyfl27-66 ( for 3 consecutive months): Chronic kidney disease 15 or less: Kidney failureHarris Health System Ben Taub HospitalGlucose umapnbkevtp9367-53-03 18:44:00* Test Item Value Reference Range Interpretation Comments Glucose Level (test code = NGW8081) 90 74-118 [facility] plasma calcium measurement (mass/volume)2020-01-04 18:44:00* Test Item Value Reference Range Interpretation Comments Calcium Level (test code = 38538-6) 8.6 8.4-10.2 [facility] plasma total bilirubin measurement (mass/volume)2020-01-04 18:44:00* Test Item Value Reference Range Interpretation Comments Total Bilirubin (test code = 1975-2) 0.6 0.2-1.2 [facility] HospitalFluoroscopic procedure less than one hour oxgsvblg6263-12-04 18:44:00* Test Item Value Reference Range Interpretation Comments Aspartate Amino Transf (AST/SGOT) (test code = Aspartate Amino Transf (AST/SGOT)) 10 5-34 [facility]ererum or plasma alanine aminotransferase measurement (enzymatic activity/volume)2020-01-04 18:44:00* Test Item Value Reference Range Interpretation Comments Alanine Aminotransferase (ALT/SGPT) (test code = 1742-6) 11 0-55 [facility] plasma protein measurement (mass/volume)2020-01-04 18:44:00* Test Item Value Reference Range Interpretation Comments Total Protein (test code = 2885-2) 7.7 6.5-8.1 [facility] plasma albumin measurement (mass/volume)2020-01-04 18:44:00* Test Item Value Reference Range Interpretation Comments Albumin (test code = 1751-7) 4.4 3.5-5.0 [facility] HospitalPlasma globulin measurement (mass/volume) 2020-01-04 18:44:00* Test Item Value Reference Range Interpretation Comments Globulin (test code = 01163-0) 3.3 2.3-3.5 [facility] albumin/globulin mass [id number] 18:44:00* Test Item Value Reference Range Interpretation Comments Albumin/Globulin Ratio (test code = 1759-0) 1.3 0.8-2.0 [facility] plasma alkaline phosphatase measurement (enzymatic activity/volume)2020-01-04 18:44:00* Test Item Value Reference Range Interpretation Comments Alkaline Phosphatase (test code = 6768-6) 99 40-150 [facility] HospitalUrine color fsbwzqcmukyzb1908-12-99 17:14:00* Test Item Value Reference Range Interpretation Comments Urine Color (test code = 5778-6) STRAW YELLOW [facility] HospitalUrine zbxlpge3079-93-70 17:14:00* Test Item Value Reference Range Interpretation Comments Urine Clarity (test code = 95064-5) SL CLOUDY CLEAR [facility] Centerpecific gravity of Urine by Test strip 2020-01-04 17:14:00* Test Item Value Reference Range Interpretation Comments Urine Specific [place] (test code = 5811-5) 1.020 1.010-1.02 5 [facility] HospitalUrine pH measurement by automated test [id number] 17:14:00* Test Item Value Reference Range Interpretation Comments Urine pH (test code = 35738-8) 5.5 5-7 [facility] HospitalUrine leukocyte esterase detection by ktpqvafi9572-28-40 17:14:00* Test Item Value Reference Range Interpretation Comments Urine Leukocyte Esterase (test code = 5799-2) SMALL NEGATIVE [facility] HospitalUrine nitrite gprmyaxvi8849-22-56 17:14:00* Test Item Value Reference Range Interpretation Comments Urine Nitrite (test code = 09736-4) NEGATIVE NEGATIVE [facility] HospitalUrine protein measurement by test strip (mass/volume)2020-01-04 17:14:00* Test Item Value Reference Range Interpretation Comments Urine Protein (test code = 5804-0) NEGATIVE NEGATIVE [facility] HospitalUrine glucose zzzvnajjr1075-91-48 17:14:00* Test Item Value Reference Range Interpretation Comments Urine Glucose (UA) (test code = 2349-9) NEGATIVE NEGATIVE [facility] HospitalUrine ketones detection by automated test iqxmn0061-86-06 17:14:00* Test Item Value Reference Range Interpretation Comments Urine Ketones (test code = 24045-5) NEGATIVE NEGATIVE [facility] HospitalUrine urobilinogen measurement by test strip (mass/volume)2020-01-04 17:14:00* Test Item Value Reference Range Interpretation Comments Urine Urobilinogen (test code = 68007-3) 0.2 0.2-1 [facility] HospitalUrine total bilirubin measurement (mass/volume)2020-01-04 17:14:00* Test Item Value Reference Range Interpretation Comments Urine Bilirubin (test code = 1978-6) NEGATIVE NEGATIVE [facility] HospitalUrine erythrocytes ytrtkguxm8590-98-19 17:14:00* Test Item Value Reference Range Interpretation Comments Urine Blood (test code = 33640-3) SMALL NEGATIVE [facility] HospitalAutomated urine sediment leukocyte count by microscopy (number/high power field)2020-01-04 17:14:00* Test Item Value Reference Range Interpretation Comments Urine WBC (test code = 5821-4) 11-20 0-5 [facility] HospitalErythrocytes detection in urine sediment by light pyareazggd6772-02-66 17:14:00* Test Item Value Reference Range Interpretation Comments Urine RBC (test code = 90321-8) 0-5 0-5 [facility] HospitalBacteria detection in urine sediment by light uzolfbnwas0390-58-90 17:14:00* Test Item Value Reference Range Interpretation Comments Urine Bacteria (test code = 67108-0) MANY NONE [facility] HospitalEpithelial cells detection in urine sediment by light crkrattigg3575-24-15 17:14:00* Test Item Value Reference Range Interpretation Comments Urine Epithelial Cells (test code = 78132-7) FEW NONE [facility] HospitalUrine human chorionic gonadotropin (hCG) iqpvahijl7000-46-93 17:14:00* Test Item Value Reference Range Interpretation Comments Urine Test (test code = 2106-3) NEGATIVE NEGATIVE [facility]) 2019-11-09 08:55:00* Test Item Value Reference Range Interpretation Comments SARS-COV2/RT-PCR (test code = 24201-9) Negative Not Detected, N egative SARS-COV-2 PERFORMING LAB (test code = 73930-7) [facility])2019-11-09 08:55:00* Test Item Value Reference Range Interpretation Comments SARS-COV2/RT-PCR (test code = 7149523) Negative Not Detected, N egative SARS-COV-2 PERFORMING LAB (test code = 2786097) CPL ECG 12 wfoi9877-18-62 18:21:11Interface, External Ris In - 11/04/2019 6:21 PM CDTVentricular Rate 86 BPMAtrial Rate 86 BPMP-R Interval 134 msQRS Duration 78 msQ-T Interval 354 msQTC Calculation(Bazett) 423 msP [place] 40 degreesR [place] 66 degreesT [place] 47 degreesNormal sinus rhythmNormal ECGNo previous ECGs availableConfirmed by MD FAIRBANKS YOCHAI ([id number]) on 11/04/2019 6:21:10 [facility])2019-11-03 06:28:00* Test Item Value Reference Range Interpretation Comments SARS-COV2/RT-PCR (test code = 5249820) Negative Not Detected, N egative SARS-COV-2 PERFORMING LAB (test code = 9166635) CPL Urine human chorionic gonadotropin (hCG) wxdadypnv9162-94-44 09:05:00* Test Item Value Reference Range Interpretation Comments Urine Test (test code = 2106-3) NEGATIVE NEGATIVE [facility] CenterFluor[facility] procedure less than one hour vqtpvabu2102-91-46 16:13:00* Test Item Value Reference Range Interpretation [...] Pathology Laboratories are certified under the C linical Laboratory Improvement Amendments of 1988 (CLIA), 42 U.S.C. section 263a , to perform high complexity tests.Testing performed by [facility] [address] [place], [place] [phone] Director: Roderick Brush M.D.CLIA # [id number] [facility] Fluoroscopic procedure less than one hour vapfilpf1423-23-45 16:13:00* Test Item Value Reference Range Interpretation [...] Clinical Pathology Laboratories are certified under the [facility] Hospitalical Laboratory Improvement Amendments of 1988 (CLIA), 42 U.S.C. section 263a , to perform high complexity tests.Testing performed by [facility] [address] [place], [place] [phone] Director: Roderick Brush M.D.CLIA # [id number] [facility] Surgical pathology lnpemat9087-59-34 10:46:59* Test Item Value Reference Range Interpretation Comments Case number (test code = 6432751) [id number] Surgical pathology report (test code = 2255) See link below for PDF Lab Report Result status (test code = 6462854) This is Final Report for [id number] 5340-17 [facility] MethodistBasic metabolic ymtfa6592-47-94 06:06:00* Test Item Value Reference Range Interpretation Comments Sodium (test code = 2951-2) 141 135- 148 mEq/L Potassium (test code = 2823-3) 4.0 3.5- 5.0 mEq/L Chloride (test code = 2075-0) 106 98- 112 mEq/L CO2 (test code = 8-9) 25 24- 31 mEq/L Anion gap (test code = 38506-8) 10@ANIO 7- 15 mEq/L BUN (test code = 3094-0) 5 mg/dL 6-20 L Creatinine (test code = 2160-0) 0.57 mg/dL 0.5-0.9 Glucose (test code = 2345-7) 80 mg/dL 65-99 Calcium (test code = 84608-0) 8.4 mg/dL 8.3-10.2 Lab Interpretation (test code = 03899-2) Abnormal [facility] MethodistMagnesium eysra4131-09-15 06:06:00* Test Item Value Reference Range Interpretation Comments Magnesium (test code = 26009-4) 2.0 mg/dL 1.6-2.6 [facility] MethodistPhosphorus dijmr1653-01-93 06:06:00* Test Item Value Reference Range Interpretation Comments Phosphorus (test code = 2777-1) 4.0 mg/dL 2.4-4.5 [facility] MethodistEstimated [id number] 06:06:00* Test Item Value Reference Range Interpretation Comments Estimated GFR (test code = 5488) >=90 mL/min/1.73 m2 Catergory Units InterpretationG1 >=90 Normal or highG2 60-89 Mildly rxfahefbhL6z 45-59 Mildly to moderately wzulqtufvQ1n 30-44 Moderately to severely decreasedG4 15-29 Severely decreasedG5 <15 Kidney failureThe eGFR was calculated using the Chronic Kidney Disease Epidemiology Collaboration (CKD-EPI) equation. Interpretation is based on recommendations of the National Kidney Foundation-Kidney Disease Outcomes Quality Initiative (NKF-KDOQI) published in 2014. [facility] xuykkvxt0539-33-34 05:32:40* Test Item Value Reference Range Interpretation Comments WBC (test code = 92205-4) 8.09 4.50- 11.00 k/uL RBC (test code = 66277-7) 3.41 m/uL 4.2-5.5 L HGB (test code = 718-7) 9.9 g/dL 12-16 L HCT (test code = 4544-3) 31.4 % 37-47 L MCV (test code = 787-2) 92.1 fL 82-100 MCH (test code = 785-6) 29.0 pg 27-34 MCHC (test code = 786-4) 31.5 g/dL 31-37 RDW - SD (test code = 40770-1) 48.3 fL 37-55 MPV (test code = 94519-7) 11.5 fL 8.8-13.2 Platelet count (test code = 83020-2) 287 150- 400 k/uL Nucleated RBC (test code = 84151-1) 0.00 /100 WBC Lab Interpretation (test code = 46949-4) Abnormal [facility] 12 hkjs6925-63-61 21:08:55* Test Item Value Reference Range Interpretation Comments Ventricular rate (test code = 253) 69 Atrial rate (test code = 255) 69 WI interval (test code = 266) 150 QRSD [...] arrhythmia- Normal ECG-No previous ECGs available- Ray IxkkiaedzEdyzkw0908-58-77 09:27:44WrServando mccormack CRNA 05/27/2019 9:28 AMAirwayPerformed by: Servando Rivera CRNAAuthorized by: Kelly Esteves MD Location: ORUrgency: ElectiveDifficult Airway: No Anesthesiologist: Kelly Esteves, DOMENICOesident/DETHISTLER OPERATOR/AA: Servando Rivera CRNAPerformed by: resident/DETHISTLER OPERATOR/AAPreoxygenated with 100% O2: Yes C-spine Precautions Maintained [...] MethodistUrinalysis screen and microscopy, with reflex to kvlvkvb6702-91-13 04:13:36* Test Item Value Reference Range Interpretation Comments Specimen site (test code = 4949270) Random void Color, UA (test code = 5778-6) Dark Yellow Appearance, UA (test code = 5767-9) Cloudy Specific gravity, UA (test code = 5811-5) 1.017 1.001-1.035 pH, UA (test code = 5803-2) 5.0 5.0-8.5 Protein, UA (test code = 10997-3) Negative Negative Glucose, UA (test code = 94201-6) Negative Negative Ketones, UA (test code = 2514-8) 1+ Negative A Bilirubin, UA (test code = 5770-3) Negative Negative Blood, UA (test code = 5794-3) Moderate Negative A Nitrite, UA (test code = 5802-4) Negative Negative Urobilinogen, UA (test code = 14057-5) 4.0 <2.0 A Leukocyte esterase, UA (test code = 5799-2) Negative Negative Epithelial cells, UA (test code = 5787-7) 2 /HPF WBC, UA (test code = 5821-4) <1 0- 4 /HPF RBC, UA (test code = 52276-8) <1 0- 5 /HPF Bacteria, UA (test code = 31878-9) Many None seen A Yeast, UA (test code = 05587-3) Few A Yeast with pseudohyphae, UA (test code = 67177-3) None seen Amorphous crystals (test code = 35316-1) Few Lab Interpretation (test code = 93485-3) Abnormal [facility] MethodisthCG qualitative, urine znpszh7239-85-84 03:02:06* Test Item Value Reference Range Interpretation Comments hCG qualitative, urine (test code = 2106-3) Negative Sensitivity of HCG test: 25 mIU/mL [facility] MethodistType and oevnaj0806-12-10 19:00:00* Test Item Value Reference Range Interpretation Comments ABO grouping (test code = 883-9) O Rh type (test code = 65644-9) POS Antibody screen (gel) (test code = 890-4) NEG [facility] MethodistUS Irgrchvexbu8481-43-02 18:41:25 Interface, Radiology Results 05/26/2019 6:44 PM CSTEXAMINATION: US GALLBLADDERCLINICAL HISTORY:CholelithiasisCOMPARISON: None.IMPRESSION:1. Gallbladder: There are gallstones. The gallbladder is mildly distended. Wall thickening is noted. Findings can be seen with acute cholecystitis. 2. Gallbladder Wall: Normal3. Pericholecystic Fluid: No pericholecystic fluid.4. CBD: The common bile duct is within normal limits.. The duct measures 5-6 mm.5. Other Findings: NoneWE[facility]-[id number] MethodistHepatic function qkldy2949-94-07 18:10:19* Test Item Value Reference Range Interpretation Comments Albumin (test code = 1751-7) 4.2 g/dL 3.5-5 Total bilirubin (test code = 1974-2) 0.3 mg/dL 0-1.2 Bilirubin direct (test code = 1967-7) <0.2 0-0.3 Alkaline phosphatase (test code = 6768-6) 112 U/L 35-104 H Protein (test code = 2885-2) 7.8 g/dL 6.3-8.3 Tfnzefq8706.6-7.0 g/dL1 cmxw1817.4-7.6 g/dL7 months-0edrb374.1-7.3 g/dL1-2 ylwfx697.6-7.5 g/dL>3 .0-8.0 g/uX07-4928282.3-8.3 g/dL ALT (test code = 1742-6) 24 U/L 5-50 AST (test code = 1920-8) 53 U/L 10-35 H Lab Interpretation (test code = 54296-7) Abnormal [facility] MethodistLipase axoco9324-11-37 18:10:19* Test Item Value Reference Range Interpretation Comments Lipase (test code = 3040-3) 26 U/L 13-60 [facility] MethodistPartial thromboplastin time, jussjuvgl6521-06-59 18:07:43* Test Item Value Reference Range Interpretation Comments PTT (test code = 38105-4) 28.2 23.0- 36.0 sec PTT therapeutic range for unfractionated heparin is61.0-112.0 seconds which corresponds to Anti-Xa0.3-0.7 U/ml. [facility] MethodistProthrombin time with HJG8193-94-67 17:57:47* Test Item Value Reference Range Interpretation Comments Prothrombin time (test code = 5902-2) 14.1 11.5- 14.5 sec INR (test code = 88404-0) 1.1 Th e International Normalized Ratio (INR) is a therapeutic monitoring tool for patients who are stable on oral anticoagulant therapy. An INR of 2.0-3.0 is suggested for deep vein thrombosis/pulmonary embolism. [facility] MethodistCBC with platelet and dwahlslxfbxn7459-78-98 17:44:58* Test Item Value Reference Range Interpretation Comments WBC (test code = 63871-3) 10.98 4.50- 11.00 k/uL RBC (test code = 53527-4) 4.04 m/uL 4.2-5.5 L HGB (test code = 718-7) 11.6 g/dL 12-16 L HCT (test code = 4544-3) 37.2 % 37-47 MCV (test code = 787-2) 92.1 fL 82-100 MCH (test code = 785-6) 28.7 pg 27-34 MCHC (test code = 786-4) 31.2 g/dL 31-37 RDW - SD (test code = 99756-0) 45.9 fL 37-55 MPV (test code = 06174-6) 11.2 fL 8.8-13.2 Platelet count (test code = 20207-2) 367 150- 400 k/uL Nucleated RBC (test code = 02812-9) 0.00 /100 WBC Neutrophils (test code = 03990-3) 58.7 % 39-69 Lymphocytes (test code = 03463-1) 32.7 % 25-45 Monocytes (test code = 41344-1) 5.9 % 0-10 Eosinophils (test code = 66717-0) 1.7 % 0-5 Basophils (test code = 71693-7) 0.5 % 0-1 Immature granulocytes (test code = 24940-1) 0.5 % 0-1 "Immature granulocytes" (promyelocytes, myelocytes, metamyelocytes) Lab Interpretation (test code = 45590-0) Abnormal [facility] MethodistUS, ABDOMINAL, UZPTFOB4808-05-33 21:05:00Abdomen limited area? Add comment if clarification [...] ultrasonographic evidence of acute cholecystitis. Signed: Jcarlos Jeffersonort Verified Date/Time: 05/18/2019 21:05:42 Reading Location: [facility] [address] Consult Reading Room abdomen limited 2019-05-18 [...] evidence of acute cholecystitis. Signed: Jcarlos Jefferson Verified Date/Time: 05/18/2019 21:05:42 Reading Location: [facility] [address] Consult Reading Room [facility]Basic metabolic panel (Na, K+, Cl, CO2, Glu, [...] 82 mg/dL 70-105 Calcium (test code = 16488-4) 8.3 mg/dL 8.4-10.2 L EGFR (test code = 52770-5) I NSUFFICIENT CLINICAL DATA TO CALCULATE ESTIMATED GFR. CHARLES (test code = CHARLES) Development Spec ID - PONCHO E Lab Interpretation (test code = 93817-4) Abnormal [facility] HospitalBASI METABOLIC CYERQ3123-75-67 19:58:00* Test Item Value Reference Range Interpretation [...] INSUFFICIENT CLINICAL DATA TO CALCULATE ESTIMATED GFR. Development Spec ID - PONCHO Leongver Krfjh2313-98-47 19:57:00* Test Item Value Reference Range Interpretation Comments Protein, Total (test code = 2885-2) 7.1 6.0- 8.3 gm/dL Albumin (test code = 02284-1) 4.1 g/dL 3.5-5 Total Bilirubin (test code = 1974-) 0.2 mg/dL 0.2-1.2 Bilirubin, Direct (test code = 1967-7) 0.1 mg/dL 0.1-0.5 Alkaline Phosphatase (test code = 6768-6) 101 U/L 40-150 AST (test code = 1920-8) 11 U/L 5-34 ALT (test code = 1742-6) 9 U/L 6-55 CHARLES (test code = CHARLES) Development Spec ID - PONCHO E Lab Interpretation (test code = 56963-1) Normal [facility]enaventuraLipase2020-01-17 19:57:00* Test Item Value Reference Range Interpretation Comments Lipase (test code = 3040-3) 26 U/L CHARLES (test code = CHARLES) Development Spec ID - PONCHO E Lab Interpretation (test code = 01788-2) Normal [facility]enturaLIPASE2020-01-17 19:57:00* Test Item Value Reference Range Interpretation Comments LIPASE (BEAKER) (test code = 749) 26 U/L Development Spec ID - PONCHO EHEPATIC FUNCTION [id number] 19:57:00* Test Item Value Reference Range Interpretation [...] (test code = 347) 9 U/L 6-55 Development Spec ID - PONCHO EUrinalysis w/Foxbrinqvwx9208-59-31 19:38:00* Test Item Value Reference Range Interpretation Comments Color, UA (test code = 5778-6) Yellow Clarity, UA (test code = 5767-9) Clear Specific [place], UA (test code = 5811-5) 1.025 1.005-1.030 pH, UA (test code = 5803-2) 5.5 5.0-9.0 Protein, UA (test code = 23548-5) Negative Negative Glucose, UA (test code = 365) Negative Negative Ketones, UA (test code = 2514-8) 15 mg/dL Negative A Bilirubin, UA (test code = 38074-7) Negative Negative Blood, UA (test code = 91000-0) Negative Negative Nitrite, UA (test code = 5802-4) Negative Negative Leukocytes, UA (test code = 5799-2) Negative Negative Urobilinogen, UA (test code = 71519-4) 0.2 mg/dL 0.2-1 RBC, UA (test code = 42715-3) 0 /HPF WBC, UA (test code = 5821-4) 0 /HPF Specimen Source (test code = 2795) Lab Interpretation (test code = 72618-4) Abnormal [facility] HospitalURINALYSIS W/ AANDWIXPLDC0953-23-70 19:38:00* Test Item Value Reference Range Interpretation [...] /HPF SOURCE(BEAKER) (test code = 2795) screen, ecivk9889-82-31 19:32:00* Test Item Value Reference Range Interpretation Comments Preg Test, Ur (test code = 2112-1) Negative [facility] BuenaventuraPREGNANCY SCREEN, [id number] 19:32:00* Test Item Value Reference Range Interpretation Comments TEST URINE (BEAKER) (test code = 583) Negative CBC with platelet count + automated qrib4462-04-66 19:15:00* Test Item Value Reference Range Interpretation [...] 450 K/CU MM MPV (test code = 02774-9) 10.4 fL 9-12.3 % Neutros (test code [...] % 0-1 Lab Interpretation (test code = 28697-3) Abnormal [facility] W/PLT COUNT & AUTO UYNRCHQJPPWK6372-62-40 19:15:00* Test Item Value Reference Range Interpretation [...] code = 2801) 0 % 0-1 CT, YSTEIDS4373-43-06 03:30:00Reason for exam:->ABDOMINAL PAINWhat is the patient's sedation requirement?->No SedationIs the patient ?->Unknown FINAL REPORT CLINICAL HISTORY: Acute abdominal pain. FIN DINGS: Multiple axial images of the abdomen and pelvis were performed after the uncomplicated administration of IV contrast. Oral contrast was not given. This exam was performed according to our departmental dose-optimization program, ic h includes automated exposure control, adjustment of [...] Church Verified Date/Time: 12/18/2018 03:30:14 Reading Location: [address] Reading Room Electronically signed by: RISHI CHURCH M.D. on 0 12/18/2018 03:30 AM SCREEN, [id number] 02:41:00* Test Item Value Reference Range Interpretation Comments TEST URINE (BEAKER) (test code = 583) Negative URINALYSIS W/ OEGTEECCILZ4814-78-77 02:40:00* Test Item Value Reference Range Interpretation [...] (test code = 2795) Urine, Clean Catch YZBGJO9607-25-96 02:23:00* Test Item Value Reference Range Interpretation Comments LIPASE (BEAKER) (test code = 749) 22 U/L 8-78 ALT (SGPT)2018-12-18 02:23:00* Test Item Value Reference Range Interpretation Comments ALT (SGPT) (BEAKER) (test code = 347) 8 U/L 6-55 AST (SGOT)2018-12-18 02:23:00* Test Item Value Reference Range Interpretation Comments AST (SGOT) (BEAKER) (test code = 353) 14 U/L 5-34 BASIC METABOLIC [id number] 02:23:00* Test Item Value Reference Range Interpretation [...] NOT APPLICABLE FOR DIALYSIS PATIENTS. BILIRUBIN, ADULT YIAHV3772-85-29 02:23:00* Test Item Value Reference Range Interpretation Comments BILIRUBIN TOTAL (BEAKER) (test code = 377) 0.4 mg/dL 0.2-1.2 CBC W/PLT COUNT & AUTO BCWRHYDWYTWW5009-84-65 02:04:00* Test Item Value Reference Range Interpretation [...] IMMATURE GRANULOCYTES-RELATIVE PERCENT (BEAKER) (test code = 2651) 0 % 0-1
== END 2020-03-05 20:08 | disposition home or self-care (01) ==
LOC: FSED 18:23
DX: R50.9 Fever, unspecified (principal); B34.9 Viral infection, unspecified; K30 Functional dyspepsia; M79.10 Myalgia, unspecified site; Z11.59 Encounter for screening for other viral diseases; Z98.84 Bariatric surgery status
CPT/HCPCS: 80048; 80076; 81003; 81025; 85025; 99283; J1885; U0002

== ENCOUNTER → 2020-04-30 | Outpatient (CLI) | payer OTHER ==
[~2020-04-30] MED LIST changes: +COVID-19 VACC, MRNA(MODERNA)/PF 100 MCG/0.5 ML VIAL IM ONE
== END ==
LOC: VACCPMC 13:13
DX: Z23 Encounter for immunization (principal); Z20.828 Contact with and (suspected) exposure to other viral communicable diseases

== ENCOUNTER 2020-05-23 13:07 | Emergency (ER) | payer OTHER ==
[~2020-05-23] VITALS: Ht 162.6 cm; Wt 78.0 kg
[~2020-05-23 13:07] MED LIST changes: -COVID-19 VACC, MRNA(MODERNA)/PF 100 MCG/0.5 ML VIAL IM ONE
[2020-05-23] MEDS ORDERED: ZOFRAN4 MG SL (13:34)
[2020-05-23] MEDS ORDERED: TYLENOL # 31 EA PO (13:34)
== END 2020-05-23 13:38 | disposition home or self-care (01) ==
LOC: ER 13:33
DX: B34.9 Viral infection, unspecified (principal); Z20.822 Contact with and (suspected) exposure to COVID-19
CPT/HCPCS: 99282; U0002

== ENCOUNTER 2020-06-08 21:43 | Emergency (ER) | payer OTHER ==
[~2020-06-08] VITALS: Ht 162.6 cm; Wt 78.0 kg
[~2020-06-08 21:43] MED LIST changes: +TYLENOL # 31 EA PO; +ZOFRAN4 MG SL
[2020-06-08] MEDS ORDERED: LORAZEPAM 1 MG TAB PO ONE (22:15)
== END 2020-06-08 22:56 | disposition home or self-care (01) ==
LOC: ER 21:47
DX: F43.20 Adjustment disorder, unspecified (principal); F43.21 Adjustment disorder with depressed mood; Z98.84 Bariatric surgery status
CPT/HCPCS: 99282

== ENCOUNTER → 2020-08-29 | Day surgery (SDC) | payer OTHER ==
[~2020-08-29] MED LIST changes: +FENTANYL CITRATE/PF 100MCG/2 ML INJ ONE; +IRON PO; +LIDOCAINE HCL 2% LOCAL INJ 5 ML SDV VIAL INJ ONE; +MIDAZOLAM HCL 2 MG/2 ML VIAL ONE; +PROPOFOL IV EMULSION 10 MG/ML 20 ML VIAL ONE; +[UNRECOGNIZED DRUG - OTHER] PO; +antidepressant PO
[2020-08-29 18:45] VITALS: BP 116/70
== END | disposition home or self-care (01) ==
LOC: OR 13:57
PROVIDERS: ATTEND Internal Medicine Gastroenterology
DX: K59.09 Other constipation (principal); D12.5 Benign neoplasm of sigmoid colon; K64.8 Other hemorrhoids; K29.60 Other gastritis without bleeding; K21.9 Gastro-esophageal reflux disease without esophagitis; N39.0 Urinary tract infection, site not specified; F17.210 Nicotine dependence, cigarettes, uncomplicated; Z01.812 Encounter for preprocedural laboratory examination; Z20.822 Contact with and (suspected) exposure to COVID-19; Z68.30 Body mass index [BMI] 30.0-30.9, adult; Z80.0 Family history of malignant neoplasm of digestive organs
CPT/HCPCS: 45385; 81025; J2001; J2250; J2704; J3010; U0002

== ENCOUNTER 2020-10-27 05:13 | Emergency (ER) | payer OTHER ==
[~2020-10-27] VITALS: Ht 162.6 cm; Wt 78.0 kg
[~2020-10-27 05:13] MED LIST changes: -FENTANYL CITRATE/PF 100MCG/2 ML INJ ONE; -LIDOCAINE HCL 2% LOCAL INJ 5 ML SDV VIAL INJ ONE; -MIDAZOLAM HCL 2 MG/2 ML VIAL ONE; -PROPOFOL IV EMULSION 10 MG/ML 20 ML VIAL ONE
[2020-10-27] MEDS ORDERED: ALPRAZOLAM 0.5 MG TAB PO ONE (05:30)
== END 2020-10-27 09:44 | disposition home or self-care (01) ==
LOC: ER 05:22
DX: F43.21 Adjustment disorder with depressed mood (principal); D64.9 Anemia, unspecified; F17.210 Nicotine dependence, cigarettes, uncomplicated
CPT/HCPCS: 99283

== ENCOUNTER 2020-12-22 05:12 | Emergency (ER) | payer OTHER ==
[~2020-12-22] VITALS: Ht 162.6 cm; Wt 78.0 kg
[2020-12-22] MEDS ORDERED: ACETAMINOPHEN 325 MG TAB PO PRN (05:30)
[2020-12-22 05:56] LABS: BASOPHILS # (AUTO) 0.1 (0.0-0.1); BASOPHILS % 0.8 % (0.0-1.0); EOSINOPHILS # (AUTO) 0.2 (0.0-0.4); HEMATOCRIT 28.9 % (34.2-44.1); HEMOGLOBIN 8.9 g/dL (12.0-16.0); LYMPHOCYTES # (AUTO) 2.9 (1.0-3.2); LYMPHOCYTES % 29.6 % (18.0-39.1); MEAN CORPUSCULAR HEMOGLOBIN 24.7 pg (28-32); MEAN CORPUSCULAR HGB CONC 30.8 g/dL (31-35); MEAN CORPUSCULAR VOLUME 80.3 fL (81-99); MONOCYTES # (AUTO) 0.7 (0.2-0.8); NEUTROPHILS # (AUTO) 5.8 (2.1-6.9); NEUTROPHILS % 60.3 % (38.7-80.0); PLATELET COUNT 376 x10e3/uL (140-360); RED CELL DISTRIBUTION WIDTH 16.5 % (11.7-14.4)
== END 2020-12-22 06:25 | disposition home or self-care (01) ==
LOC: ER 05:17
DX: R53.83 Other fatigue (principal); T50.B95A Adverse effect of other viral vaccines, initial encounter; Y92.009 Unspecified place in unspecified non-institutional (private) residence as the place of occurrence of the external cause
CPT/HCPCS: 36415; 85025; 99283

== ENCOUNTER 2021-01-24 18:28 | Emergency (ER) | payer OTHER ==
[~2021-01-24] VITALS: Ht 162.6 cm; Wt 78.0 kg
[2021-01-24] MEDS ORDERED: ACETAMINOPHEN 325 MG TAB PO ONE (19:45)
[2021-01-24] MEDS ORDERED: IBUPROFEN 600 MG TAB PO STA (19:45)
[2021-01-24] MEDS ORDERED: PENICILLIN G BENZATHINE LA 1.2 MU TBX IM STA (21:18)
[2021-01-24] MEDS ORDERED: PENICILLIN G BENZATHINE LA 1.2 MU TBX ONE (21:27)
== END 2021-01-24 21:36 | disposition home or self-care (01) ==
LOC: ER 18:35
DX: R51.9 Headache, unspecified (principal); J02.0 Streptococcal pharyngitis; Z20.822 Contact with and (suspected) exposure to COVID-19; D64.9 Anemia, unspecified; Z98.84 Bariatric surgery status; F17.210 Nicotine dependence, cigarettes, uncomplicated
CPT/HCPCS: 83518; 99283; J0561; U0002

== ENCOUNTER 2021-07-20 18:05 | Emergency (ER) | payer BC, OTHER ==
[~2021-07-20] VITALS: Ht 162.6 cm; Wt 87.5 kg
[2021-07-20] MEDS ORDERED: FAMOTIDINE 20 MG/2 ML VIAL IV STA (19:19)
[2021-07-20] MEDS ORDERED: ONDANSETRON HCL INJ 2MG/ML 2ML 2 MG/ML VIAL IV STA (19:19)
[2021-07-20] MEDS ORDERED: SODIUM CHLORIDE 0.9% 1000ML 1,000 ML IV SCH (19:30)
[2021-07-20] MEDS ORDERED: ONDANSETRON HCL INJ 2MG/ML 2ML 2 MG/ML VIAL ONE (19:40)
[2021-07-20] MEDS ORDERED: SODIUM CHLORIDE 0.9% 1000ML 1,000 ML ONE (19:40)
[2021-07-20] MEDS ORDERED: FAMOTIDINE 20 MG/2 ML VIAL IV ONE (19:40)
[2021-07-20] MEDS ORDERED: KETOROLAC TROMETHAMINE 30 MG/ML VIAL IV STA (19:42)
[2021-07-20] MEDS ORDERED: ONDANSETRON ODT4 MG PO (22:01)
== END 2021-07-20 23:28 | disposition home or self-care (01) ==
LOC: FSED 18:15
DX: R10.13 Epigastric pain (principal); K52.9 Noninfective gastroenteritis and colitis, unspecified; R11.2 Nausea with vomiting, unspecified; D64.9 Anemia, unspecified; F41.9 Anxiety disorder, unspecified; Z98.84 Bariatric surgery status; F17.210 Nicotine dependence, cigarettes, uncomplicated
CPT/HCPCS: 80053; 81003; 81025; 85025; 99283; J1885; J2405; J7030

== ENCOUNTER 2021-11-13 08:30 | Observation (INO) | payer BC ==
[2021-11-11 08:23] LABS: BASOPHILS # (AUTO) 0.1 (0.0-0.1); BASOPHILS % 0.8 % (0.0-1.0); EOSINOPHILS # (AUTO) 0.2 (0.0-0.4); EOSINOPHILS % 2.3 % (0.0-6.0); HEMATOCRIT 29.4 % (34.2-44.1); HEMOGLOBIN 8.3 g/dL (12.0-16.0); LYMPHOCYTES # (AUTO) 3.5 (1.0-3.2); LYMPHOCYTES % 40.3 % (18.0-39.1); MEAN CORPUSCULAR HGB CONC 28.2 g/dL (31-35); MONOCYTES # (AUTO) 0.6 (0.2-0.8); MONOCYTES % 6.8 % (4.4-11.3); NEUTROPHILS # (AUTO) 4.4 (2.1-6.9); NEUTROPHILS % 49.6 % (38.7-80.0); PLATELET COUNT 443 x10e3/uL (140-360); RED BLOOD COUNT 3.77 x10e6/uL (3.6-5.1); RED CELL DISTRIBUTION WIDTH 17.2 % (11.7-14.4)
[~2021-11-13] VITALS: Ht 162.6 cm; Wt 88.9 kg
[~2021-11-13 08:30] MED LIST changes: +ONDANSETRON ODT4 MG PO
[2021-11-13] MEDS ORDERED: BUPIVACAINE 0.25% 30ML SDV ONE (09:57)
[2021-11-13] MEDS ORDERED: LIDOCAINE HCL 2% JELLY 5 ML TUBE ONE (09:57)
[2021-11-13] MEDS ORDERED: LIDOCAINE 2% /EPINEPHRINE 20 ML SDV INJ ONE (09:57)
[2021-11-13] MEDS ORDERED: HYDROCODONE/APAP 7.5MG-325MG 1 EA TAB PO PRN (12:00)
[2021-11-13] MEDS ORDERED: MEPERIDINE HCL INJ 25 MG/ML VIAL ONE (12:23)
[2021-11-13 13:50] VITALS: BP 120/74
[2021-11-13 13:57] VITALS: BP 120/74
[2021-11-13] MEDS: HYDROMORPHONE 1MG/1ML INJ IV PRN ×2 (14:20→17:29)
[2021-11-13] MEDS: SODIUM CHLORIDE 0.9% 1000ML 1,000 ML IV SCH ×2 (14:20→23:27)
[2021-11-13] MEDS ORDERED: MIDAZOLAM HCL 2 MG/2 ML VIAL ONE (14:22)
[2021-11-13] MEDS ORDERED: FENTANYL CITRATE/PF 100MCG/2 ML INJ ONE (14:22)
[2021-11-13] MEDS ORDERED: PROPOFOL IV EMULSION 10 MG/ML 20 ML VIAL ONE (14:45)
[2021-11-13] MEDS ORDERED: POVIDONE IODINE 0.05% 0.05 % ML PO ONE (14:45)
[2021-11-13] MEDS ORDERED: DEXAMETHASONE SOD PHOS INJ 4 MG/ML SDV ONE (14:45)
[2021-11-13] MEDS ORDERED: KETOROLAC TROMETHAMINE 30 MG/ML VIAL ONE (14:45)
[2021-11-13] MEDS ORDERED: LIDOCAINE HCL 2% LOCAL INJ 5 ML SDV VIAL INJ ONE (14:45)
[2021-11-13] MEDS ORDERED: ONDANSETRON HCL INJ 2MG/ML 2ML 2 MG/ML VIAL ONE (14:45)
[2021-11-13] MEDS ORDERED: SEVOFLURANE INHAL SOLN 250 ML PEN BTL ONE (14:45)
[2021-11-13 16:14] VITALS: BP 97/58
[2021-11-13 20:00] VITALS: BP 103/62
[2021-11-13 21:00] VITALS: BP 103/62
[2021-11-13] MEDS: KETOROLAC TROMETHAMINE 30 MG/ML VIAL IV PRN (23:20)
[2021-11-13 23:33] VITALS: BP 99/62
[2021-11-14] VITALS (8 sets, daily range): BP systolic 94–116; BP diastolic 54–62
[2021-11-14] MEDS: KETOROLAC TROMETHAMINE 30 MG/ML VIAL IV PRN (05:18)
[2021-11-14] MEDS: SODIUM CHLORIDE 0.9% 1000ML 1,000 ML IV SCH ×2 (08:23→17:27)
[2021-11-14] MEDS: HYDROMORPHONE 1MG/1ML INJ IV PRN ×4 (11:02→20:57)
[2021-11-14] MEDS ORDERED: MAGNESIUM HYDROXIDE 30 ML UDC PO ONE (20:15)
[2021-11-14] MEDS: TRIAMCINOLONE 0.1% OINTMENT 15 GM TUBE TP SCH (21:00)
[2021-11-15] VITALS: BP 104/59
[2021-11-15] MEDS: HYDROMORPHONE 1MG/1ML INJ IV PRN ×4 (01:22→16:03)
[2021-11-15 04:00] VITALS: BP 108/64
[2021-11-15] MEDS: SODIUM CHLORIDE 0.9% 1000ML 1,000 ML IV SCH ×2 (04:52→16:03)
[2021-11-15] MEDS: KETOROLAC TROMETHAMINE 30 MG/ML VIAL IV PRN ×2 (07:51→14:10)
[2021-11-15 09:39] VITALS: BP 100/60
[2021-11-15] MEDS: TRIAMCINOLONE 0.1% OINTMENT 15 GM TUBE TP SCH ×2 (11:36→16:04)
[2021-11-15 12:13] VITALS: BP 108/56
[2021-11-15 15:37] VITALS: BP 104/62
== END 2021-11-15 18:00 | disposition home or self-care (01) ==
LOC: OR 08:30 → PACU V 12:02 → MED/SURG 13:34
PROVIDERS: ADMIT Surgery; ATTEND Surgery
DX: K64.5 Perianal venous thrombosis (principal); E66.9 Obesity, unspecified; K59.09 Other constipation; Z72.0 Tobacco use; D64.9 Anemia, unspecified; Z68.33 Body mass index [BMI] 33.0-33.9, adult; Z01.812 Encounter for preprocedural laboratory examination; Z20.822 Contact with and (suspected) exposure to COVID-19
CPT/HCPCS: 0223U; 36415; 46260; 81025; 85025; 88304; G0378 ×3; J0694; J1100; J1170 ×3; J1885 ×3; J2001 ×3; J2175; J2250; J2405; J2704; J3010; J7030 ×3; 88342

== ENCOUNTER 2023-12-05 20:59 | Emergency (ER) | payer OTHER ==
[~2023-12-05] VITALS: Ht 165.1 cm; Wt 112.6 kg
[~2023-12-05 20:59] MED LIST changes: +FEROSUL325 MG PO; +IBUPROFEN600 MG PO
[2023-12-05 21:10] VITALS: TEMP 97.6
[2023-12-05] MEDS: METOCLOPRAMIDE HCL 10 MG/2ML VIAL IV ONE (21:31)
[2023-12-05] MEDS: KETOROLAC TROMETHAMINE 30 MG/ML VIAL IV STA (21:32)
[2023-12-05] MEDS: SODIUM CHLORIDE 0.9% 1000ML 1,000 ML IV ONE (21:32)
[2023-12-05 22:27] VITALS: PULSE 83; RESP 18; O2SAT 99
[2023-12-05] MEDS ORDERED: REGLAN10 MG PO (22:29)
== END 2023-12-05 22:33 | disposition home or self-care (01) ==
LOC: FSED 21:04
DX: R51.9 Headache, unspecified (principal); D64.9 Anemia, unspecified; F41.9 Anxiety disorder, unspecified; F32.A Depression, unspecified; Z98.84 Bariatric surgery status; F17.210 Nicotine dependence, cigarettes, uncomplicated
CPT/HCPCS: 99283; J1885; J2765; J7030